=== PATIENT | male | born 1955 ===

== ENCOUNTER → 2020-02-06 11:35 | Outpatient (BNVA) | payer OTHER, SELFPAY | PROVIDERS: PCP Nurse Practitioner Family; Referring Provider Nurse Practitioner Family; Visit Provider Internal Medicine Endocrinology, Diabetes & Metabolism | DX: E11.9 Type 2 diabetes mellitus without complications (principal); E89.0 Postprocedural hypothyroidism; I10 Essential (primary) hypertension; E78.5 Hyperlipidemia, unspecified; E66.9 Obesity, unspecified; Z79.899 Other long term (current) drug therapy | CPT/HCPCS: 99214 ==

== ENCOUNTER 2020-02-13 14:07 | Outpatient (REF) | payer OTHER, SELFPAY ==
[2020-02-13 16:58] LABS: Estimated Average Glucose 123 mg/dL; Hemoglobin A1C 148.4256 umol/L; Hemoglobin A1c % 5.9 %
[2020-02-13 17:40] LABS: Prostate Specific Antigen Scr 0.38 ng/mL (<0.05-4.0); TSH reflex Free T4 2.08 mIU/mL (0.32-4.0)
[2020-02-13 17:48] LABS: Anion Gap 15 (12-20); Blood Urea Nitrogen 14 mg/dL (9-16); Calcium 9.1 mg/dL (8.4-10.2); Carbon Dioxide 28 mmol/L (22-29); Chloride 99 mmol/L (96-108); Cholesterol 201 mg/dL; Estimated Glomerular Filt Rate > 60; Glucose Fasting 133 mg/dL (60-99); HDL Cholesterol 87 mg/dL; LDL Cholesterol Calculated 97 mg/dl; Potassium 4.3 mmol/l (3.3-5.1); Sodium 138 mmol/L (135-145); Triglycerides 88 mg/dL
== END 2020-02-13 14:08 | disposition home or self-care (01) ==
LOC: HO.HMGCLDS 14:07
PROVIDERS: PCP Nurse Practitioner Family; Visit Provider Nurse Practitioner Family
DX: Z12.5 Encounter for screening for malignant neoplasm of prostate (principal); Z00.00 Encounter for general adult medical examination without abnormal findings; E11.9 Type 2 diabetes mellitus without complications
CPT/HCPCS: 80048; 80061; 83036; 84153; 84443

== ENCOUNTER 2020-08-20 14:11 | Outpatient (REF) | payer OTHER, SELFPAY ==
[2020-08-20 17:03] LABS: Alanine Aminotransferase 43 U/L (0-40); Albumin Level 4.8 g/dL (3.5-5.0); Alkaline Phosphatase 77 U/L (39-117); Anion Gap 16 (12-20); Aspartate Amino Transferase 40 U/L (5-37); Bilirubin Total 0.7 mg/dL (0.0-1.0); Blood Urea Nitrogen 15 mg/dL (9-16); Calcium 9.8 mg/dL (8.4-10.2); Carbon Dioxide 28 mmol/L (22-29); Chloride 98 mmol/L (96-108); Cholesterol 210 mg/dL; Estimated Glomerular Filt Rate > 60; Glucose Fasting 187 mg/dL (60-99); HDL Cholesterol 82 mg/dL; LDL Cholesterol Calculated 109 mg/dl; Potassium 5.2 mmol/L (3.3-5.1); Sodium 137 mmol/L (135-145); Total Protein 8.3 g/dL (6.5-8.0); Triglycerides 97 mg/dL
[2020-08-20 17:22] LABS: TSH reflex Free T4 4.96 uIU/mL (0.32-4.0)
== END 2020-08-20 14:12 | disposition home or self-care (01) ==
LOC: HO.HMGCLDS 14:11
PROVIDERS: PCP Nurse Practitioner Family; Visit Provider Nurse Practitioner Family
DX: R00.0 Tachycardia, unspecified (principal); I10 Essential (primary) hypertension
CPT/HCPCS: 36415; 80053; 80061; 84439; 84443

== ENCOUNTER 2020-08-24 13:04 | Outpatient (REF) | payer OTHER, SELFPAY ==
[2020-08-24 14:22] LABS: Anion Gap 15 (12-20); Carbon Dioxide 28 mmol/L (22-29); Chloride 98 mmol/L (96-108); Potassium 4.6 mmol/L (3.3-5.1); Sodium 136 mmol/L (135-145)
[2020-08-24 14:50] LABS: TSH reflex Free T4 4.56 uIU/mL (0.32-4.0)
[2020-08-24 15:22] LABS: Free T4 (Free Thyroxine) 0.96 ng/dL (0.71-1.85)
[2020-08-27 08:05] LABS: HBS Num1 1.05 mIU/mL (0-7.99); HBc Num1 0.05 S/CO (0.00-0.79); Hepatitis B Core Antibody Nonreactive (Nonreactive); Hepatitis B Surface Antigen Negative (Negative); ~Hepatitis B Surface Antibody NONREACTIVE (Nonreactive)
[2020-08-27 08:07] LABS: ~Hepatitis C Antibody Nonreactive (Nonreactive)
[2020-08-28 08:13] LABS: Hepatitis A Antibody IgM 0.13 Index (0-0.79); ~HepC Num1 0.08 S/CO (0.00-0.79); ~Hepatitis A Antibody IgM Nonreactive (Nonreactive)
== END 2020-08-24 13:05 | disposition home or self-care (01) ==
LOC: HO.HMGCLDS 13:04
PROVIDERS: PCP Nurse Practitioner Family; Visit Provider Nurse Practitioner Family
DX: I10 Essential (primary) hypertension (principal); R74.8 Abnormal levels of other serum enzymes; E87.5 Hyperkalemia
CPT/HCPCS: 36415; 80051; 84439; 84443; 86704; 86706; 86709; 86803; 87340

== ENCOUNTER 2020-08-30 10:00 | Outpatient (REF) | payer OTHER, SELFPAY ==
--- NOTE | ~2020-08-30 | US_ITS ---
EXAMINATION: US ABDOMEN COMPLETE CLINICAL INFORMATION: Elevated liver enzymes. COMPARISON: CTA chest 02/08/2019 TECHNIQUE: Real-time imaging of the abdominal viscera. Technically difficult study secondary to bowel gas, body habitus. FINDINGS: PANCREAS: Normal. ABDOMINAL AORTA: Not well visualized due to bowel gas. INFERIOR VENA CAVA: Visualized portions are normal. LIVER: Liver echotexture is increased and heterogeneous suggestive of hepatocellular disease. The liver contour is slightly irregular questionable for mild cirrhosis. There are several hypoechoic areas seen in the liver largest measuring 6 mm in the left lobe. There is no intrahepatic biliary duct dilatation. GALLBLADDER: Not well visualized. COMMON BILE DUCT: Normal in caliber measuring 0.20 cm in diameter. RIGHT KIDNEY: Normal. No hydronephrosis. No renal calculi or focal parenchymal lesions. The kidney measures 12.3 cm in maximum dimension. LEFT KIDNEY: Normal. No hydronephrosis. No renal calculi or focal parenchymal lesions. The kidney measures 13.6 cm in maximum dimension. SPLEEN: Normal. The spleen measures 10.8 cm in maximum dimension. FREE FLUID: None. US/US abdomen complete IMPRESSION: Limited exam. In particular, evaluation of the gallbladder and abdominal aorta is limited. Heterogeneous liver echotexture questionable for hepatocellular disease and mild cirrhotic changes. Numerous small hypoechoic lesions in the liver largest measuring 6 mm in the left lobe. Follow-up liver MRI should be considered.
== END 2020-08-30 10:01 | disposition home or self-care (01) ==
LOC: HO.HMGCX 10:00
PROVIDERS: PCP Nurse Practitioner Family; Visit Provider Nurse Practitioner Family
DX: R74.8 Abnormal levels of other serum enzymes (principal)
CPT/HCPCS: 76700

== ENCOUNTER 2020-09-06 13:42 | Outpatient (REF) | payer OTHER, SELFPAY | END 2020-09-06 13:43 | disposition home or self-care (01) | LOC: HO.MRI 13:42 | PROVIDERS: Visit Provider Nurse Practitioner Family | DX: K76.9 Liver disease, unspecified (principal) | CPT/HCPCS: A9585 ==

== ENCOUNTER → 2020-10-18 11:26 | Outpatient (BNVA) | payer MEDICAID, SELFPAY | PROVIDERS: PCP Nurse Practitioner Family; Referring Provider Nurse Practitioner Family; Visit Provider Surgery | DX: K81.0 Acute cholecystitis (principal); R74.01 Elevation of levels of liver transaminase levels | CPT/HCPCS: 99202 ==

== ENCOUNTER 2021-02-15 11:40 | Outpatient (REF) | payer OTHER, SELFPAY ==
[2021-02-15 14:21] LABS: Alanine Aminotransferase 35 U/L (0-40); Aspartate Amino Transferase 34 U/L (5-37); Cholesterol 173 mg/dL; HDL Cholesterol 62 mg/dL; LDL Cholesterol Calculated 96 mg/dl; Triglycerides 77 mg/dL
[2021-02-15 14:42] LABS: TSH reflex Free T4 2.21 uIU/mL (0.32-4.0)
[2021-02-16 09:46] LABS: LDL Cholesterol Direct 105 mg/dL (<100)
== END 2021-02-15 11:41 | disposition home or self-care (01) ==
LOC: HO.HMGCLDS 11:40
PROVIDERS: PCP Nurse Practitioner Family; Visit Provider Internal Medicine
DX: E78.5 Hyperlipidemia, unspecified (principal); K76.9 Liver disease, unspecified; R74.8 Abnormal levels of other serum enzymes; R79.89 Other specified abnormal findings of blood chemistry
CPT/HCPCS: 36415; 80061; 83721; 84443; 84450; 84460

== ENCOUNTER 2021-07-23 12:21 | Outpatient (REF) | payer MEDICARE, MEDICAID, SELFPAY ==
--- NOTE | ~2021-07-23 | XR_ITS ---
EXAMINATION: XR CHEST CLINICAL INFORMATION: These COMPARISON: None TECHNIQUE: 2 views of the chest were obtained. FINDINGS: The lungs are well-expanded and clear. The heart size and pulmonary vascularity is normal. There is moderate spondylosis dorsal spine. No lytic process. XR/XR chest 2V IMPRESSION: Unremarkable chest examination.
[2021-07-23 14:14] LABS: Alanine Aminotransferase 41 U/L (0-40); Albumin Level 4.6 g/dL (3.5-5.0); Alkaline Phosphatase 66 U/L (39-117); Anion Gap 14 (12-20); Aspartate Amino Transferase 45 U/L (5-37); Bilirubin Total 0.8 mg/dL (0.0-1.0); Blood Urea Nitrogen 12 mg/dL (9-16); Calcium 9.4 mg/dL (8.4-10.2); Carbon Dioxide 28 mmol/L (22-29); Chloride 96 mmol/L (96-108); Cholesterol 181 mg/dL; Estimated Glomerular Filt Rate > 60; Glucose Fasting 166 mg/dL (60-99); HDL Cholesterol 74 mg/dL; LDL Cholesterol Calculated 95 mg/dl; Sodium 133 mmol/L (135-145); Triglycerides 64 mg/dL
[2021-07-23 14:29] LABS: TSH reflex Free T4 1.96 uIU/mL (0.32-4.0)
== END 2021-07-23 12:22 | disposition home or self-care (01) ==
LOC: HO.HMGCX 12:21
PROVIDERS: Visit Provider Nurse Practitioner Family
DX: R06.2 Wheezing (principal); I10 Essential (primary) hypertension
CPT/HCPCS: 36415; 71046; 80053; 80061; 84443

== ENCOUNTER 2021-10-24 10:55 | Outpatient (REF) | payer MEDICARE, SELFPAY ==
--- NOTE | 2021-10-24 12:01 | PFT_ITS ---
FLOWS: FEV1 79% of predicted at 2.92 L. FVC 81% of predicted at 4.03 L. FEV1 to FVC ratio of 0.73. No bronchodilator response. LUNG VOLUMES: Total lung capacity 91% of predicted at 6.79 L. Residual volume 105% of predicted at 2.60 L. Slow vital capacity 84% of predicted at 4.19 L. Expiratory reserve volume 56% of predicted at 0.83 L. Diffusion capacity is mildly decreased. IMPRESSION: No obstructive or restrictive ventilatory defect. No bronchodilator response. Decreased expiratory reserve volume suggests extrathoracic restriction likely secondary to abdominal obesity. Decreased diffusion capacity suggests emphysema. Plolo Del Castillo MD AP/MODL / [id number]
== END 2021-10-24 10:56 | disposition home or self-care (01) ==
LOC: HO.RESP 10:55
PROVIDERS: Visit Provider Nurse Practitioner Family
DX: R06.2 Wheezing (principal)
CPT/HCPCS: 94060; 94727; 94729

== ENCOUNTER 2021-11-21 10:31 | Outpatient (REF) | payer MEDICARE, SELFPAY ==
[2021-11-21 11:23] LABS: Appearance Urine HAZY; Color Urine YELLOW; Glucose Urine UA NEG (NEG); Leukocyte Esterase Urine 1+ (NEG); Nitrite Urine NEG (NEG); UACC Culture Trigger YES; Urine Blood NEG (NEG); Urine Ketones NEG (NEG); Urine Protein NEG (NEG-TRACE)
[2021-11-21 11:35] LABS: RBC Urine 0-2 /HPF (0)
[2021-11-21 11:36] LABS: Bacteria Urine 1+ /LPF; WBC Clumps Urine NOTED
[2021-11-21 12:08] LABS: Creatinine Urine 110.62 mg/dL
[2021-11-21 13:42] LABS: MANUAL DIFF FLAG NO
[2021-11-21 13:48] LABS: Basophils Absolute Auto 0.1 X10*3/uL (0.0-0.2); Basophils Percent Auto 0.9 % (0-2); Eosinophils Absolute Auto 0.2 X10*3/uL (0.0-0.4); Eosinophils Percent Auto 3.9 % (0-4); Hematocrit 34.4 % (42.0-52.0); Imm Gran Abs Auto 0.06 X10*3/uL (0.00-0.03); Lymphocytes Absolute Auto 1.1 X10*3/uL (1.2-4.9); Lymphocytes Percent Auto 19.2 % (20-40); Mean Corpuscular Hemoglobin 26.4 pg (27.0-33.0); Mean Corpuscular Volume 82.5 fL (80.0-98.0); Mean Platelet Volume 9.5 fL (9.4-12.4); Monocytes Absolute Auto 0.5 X10*3/uL (0.1-1.2); Monocytes Percent Auto 8.8 % (2-11); Neutrophils Absolute Auto 3.9 x10*3/uL (2.0-8.3); Neutrophils Percent Auto 66.2 % (45-73); Platelet Count 313 X10*3/uL (160-400); Red Blood Count 4.17 X10*6/uL (4.60-5.80); Red Cell Distribution Width 15.9 % (11.0-16.0); White Blood Count 5.9 X10*3/uL (4.8-10.8)
[2021-11-21 14:02] LABS: Alanine Aminotransferase 38 U/L (0-40); Albumin Level 4.6 g/dL (3.5-5.0); Alkaline Phosphatase 76 U/L (39-117); Anion Gap 18 (12-20); Aspartate Amino Transferase 48 U/L (5-37); Bilirubin Total 0.6 mg/dL (0.0-1.0); Blood Urea Nitrogen 14 mg/dL (9-16); Calcium 9.4 mg/dL (8.4-10.2); Carbon Dioxide 26 mmol/L (22-29); Chloride 94 mmol/L (96-108); Cholesterol 170 mg/dL; Estimated Glomerular Filt Rate > 60; Glucose Fasting 175 mg/dL (60-99); HDL Cholesterol 64 mg/dL; LDL Cholesterol Calculated 88 mg/dl; Potassium 5.5 mmol/L (3.3-5.1); Sodium 132 mmol/L (135-145); Total Protein 8.1 g/dL (6.5-8.0); Triglycerides 90 mg/dL
[2021-11-21 14:42] LABS: Prostate Specific Antigen Scr 0.45 ng/mL (<0.05-4.0); TSH reflex Free T4 2.29 uIU/mL (0.32-4.0)
== END 2021-11-21 10:32 | disposition home or self-care (01) ==
LOC: HO.HMGCLDS 10:31
PROVIDERS: PCP Nurse Practitioner Family; Visit Provider Nurse Practitioner Family
DX: Z12.5 Encounter for screening for malignant neoplasm of prostate (principal); I10 Essential (primary) hypertension
CPT/HCPCS: 36415; 80053; 80061; 81001; 82043; 84153; 84443; 85025; 87086; 87088; 87186

== ENCOUNTER 2021-11-29 11:28 | Outpatient (REF) | payer MEDICARE, SELFPAY ==
[2021-11-29 14:00] LABS: Appearance Urine HAZY; Color Urine YELLOW; Glucose Urine UA NEG (NEG); Leukocyte Esterase Urine NEG (NEG); Nitrite Urine NEG (NEG); PH 6.5 (5.0-8.0); Specific Gravity - Urine <= 1.005 (1.005-1.025); Urine Blood NEG (NEG); Urine Ketones NEG (NEG); Urine Protein NEG (NEG-TRACE)
[2021-11-29 14:25] LABS: Anion Gap 17 (12-20); Carbon Dioxide 25 mmol/L (22-29); Chloride 93 mmol/L (96-108); Potassium 4.8 mmol/L (3.3-5.1); Sodium 130 mmol/L (135-145)
== END 2021-11-29 11:29 | disposition home or self-care (01) ==
LOC: HO.HMGCLDS 11:28
PROVIDERS: PCP Nurse Practitioner Family; Visit Provider Nurse Practitioner Family
DX: I10 Essential (primary) hypertension (principal); E87.5 Hyperkalemia
CPT/HCPCS: 36415; 80051; 81003

== ENCOUNTER 2021-12-16 11:10 | Outpatient (REF) | payer MEDICARE, SELFPAY ==
[2021-12-16 14:27] LABS: Anion Gap 17 (12-20); Carbon Dioxide 26 mmol/L (22-29); Chloride 96 mmol/L (96-108); Potassium 4.6 mmol/L (3.3-5.1); Sodium 134 mmol/L (135-145)
[2021-12-16 14:53] LABS: Osmolality, Serum 285 mosm/kg (281-305)
== END 2021-12-16 11:11 | disposition home or self-care (01) ==
LOC: HO.HMGCLDS 11:10
PROVIDERS: PCP Nurse Practitioner Family; Visit Provider Nurse Practitioner Family
DX: E87.1 Hypo-osmolality and hyponatremia (principal)
CPT/HCPCS: 36415; 80051; 83930

== ENCOUNTER 2021-12-17 11:29 | Outpatient (REF) | payer MEDICARE, SELFPAY ==
[2021-12-17 15:01] LABS: Osmolality Urine 335 mosm/kg (373-1093)
== END 2021-12-17 11:30 | disposition home or self-care (01) ==
LOC: HO.HMGCLDS 11:29
PROVIDERS: PCP Nurse Practitioner Family; Visit Provider Nurse Practitioner Family
DX: E87.1 Hypo-osmolality and hyponatremia (principal)
CPT/HCPCS: 83935

== ENCOUNTER 2021-12-25 12:53 | Outpatient (REF) | payer MEDICARE, SELFPAY ==
[2021-12-25 14:04] LABS: MANUAL DIFF FLAG NO
[2021-12-25 14:22] LABS: Basophils Percent Auto 0.7 % (0-2); Eosinophils Absolute Auto 0.1 X10*3/uL (0.0-0.4); Eosinophils Percent Auto 2.7 % (0-4); Hematocrit 31.6 % (42.0-52.0); Hemoglobin 10.2 g/dl (14.0-18.0); Imm Gran Abs Auto 0.01 X10*3/uL (0.00-0.03); Imm Gran Pct Auto 0.2 % (0.0-0.4); Immature Retic Fraction 26.3 % (2.3-13.4); Lymphocytes Absolute Auto 0.8 X10*3/uL (1.2-4.9); Lymphocytes Percent Auto 19.3 % (20-40); Mean Corpuscular HGB Conc 32.3 g/dl (31.0-36.0); Mean Corpuscular Hemoglobin 26.6 pg (27.0-33.0); Mean Corpuscular Volume 82.3 fL (80.0-98.0); Mean Platelet Volume 9.3 fL (9.4-12.4); Monocytes Absolute Auto 0.4 X10*3/uL (0.1-1.2); Monocytes Percent Auto 10.5 % (2-11); Neutrophils Absolute Auto 2.7 x10*3/uL (2.0-8.3); Neutrophils Percent Auto 66.6 % (45-73); Platelet Count 264 X10*3/uL (160-400); Red Blood Count 3.84 X10*6/uL (4.60-5.80); Retic HGB Equivalent 29.3 pg (30.0-35.0); Reticulocyte Percent 1.6 % (0.5-1.8); Reticulocytes Absolute 0.062 X10*6/uL (0.026-0.095); White Blood Count 4.1 X10*3/uL (4.8-10.8)
[2021-12-25 14:48] LABS: Anion Gap 18 (12-20); Carbon Dioxide 24 mmol/L (22-29); Chloride 97 mmol/L (96-108); Iron 33 mcg/dL (45-160); Percent Iron Saturation 7 % (15-50); Potassium 4.6 mmol/L (3.3-5.1); Sodium 134 mmol/L (135-145); Total Iron Binding Capacity 494 mcg/dL (228-428); Unsaturated Iron Binding 461 ug/dL
[2021-12-25 15:09] LABS: Ferritin 15 ng/mL (20-250)
[2021-12-25 15:20] LABS: Folate 7.9 ng/mL (> or = 4.0); Vitamin B12 627 pg/mL (200-900)
== END 2021-12-25 12:54 | disposition home or self-care (01) ==
LOC: HO.HMGCLDS 12:53
PROVIDERS: PCP Nurse Practitioner Family; Visit Provider Nurse Practitioner Family
DX: D64.9 Anemia, unspecified (principal); E87.1 Hypo-osmolality and hyponatremia
CPT/HCPCS: 36415; 80051; 82607; 82728; 82746; 83540; 85025; 85045

== ENCOUNTER → 2022-01-22 11:10 | Outpatient (BNV) | payer MEDICARE, MEDICAID, SELFPAY | PROVIDERS: PCP Nurse Practitioner Family; Visit Provider Internal Medicine | DX: D50.9 Iron deficiency anemia, unspecified (principal) | CPT/HCPCS: 99213; 99214; G2211 ==

== ENCOUNTER 2022-02-12 12:34 | Outpatient (REF) | payer MEDICARE, SELFPAY | END 2022-02-12 12:35 | disposition home or self-care (01) | LOC: HO.MDS 12:34 | PROVIDERS: PCP Nurse Practitioner Family; Visit Provider Internal Medicine | DX: D50.9 Iron deficiency anemia, unspecified (principal) | CPT/HCPCS: 96365; J1756 ==

== ENCOUNTER 2022-02-20 12:44 | Outpatient (REF) | payer MEDICARE, SELFPAY | END 2022-02-20 12:45 | disposition home or self-care (01) | LOC: HO.MDS 12:44 | PROVIDERS: PCP Nurse Practitioner Family; Visit Provider Internal Medicine | DX: D50.9 Iron deficiency anemia, unspecified (principal) | CPT/HCPCS: 96365; J1756 ==

== ENCOUNTER 2022-02-27 12:39 | Outpatient (REF) | payer MEDICARE, SELFPAY | END 2022-02-27 12:40 | disposition home or self-care (01) | LOC: HO.MDS 12:39 | PROVIDERS: Visit Provider Internal Medicine | DX: D50.9 Iron deficiency anemia, unspecified (principal) | CPT/HCPCS: 96365; J1756 ==

== ENCOUNTER 2022-06-03 11:35 | Outpatient (REF) | payer MEDICARE, SELFPAY ==
[2022-06-03 14:15] LABS: MANUAL DIFF FLAG NO
[2022-06-03 14:22] LABS: Basophils Percent Auto 0.5 % (0-2); Eosinophils Absolute Auto 0.2 X10*3/uL (0.0-0.4); Eosinophils Percent Auto 3.4 % (0-4); Hematocrit 38.4 % (42.0-52.0); Hemoglobin 12.8 g/dl (14.0-18.0); Imm Gran Abs Auto 0.02 X10*3/uL (0.00-0.03); Imm Gran Pct Auto 0.5 % (0.0-0.4); Lymphocytes Absolute Auto 0.8 X10*3/uL (1.2-4.9); Lymphocytes Percent Auto 19.3 % (20-40); Mean Corpuscular HGB Conc 33.3 g/dl (31.0-36.0); Mean Corpuscular Hemoglobin 32.1 pg (27.0-33.0); Mean Corpuscular Volume 96.2 fL (80.0-98.0); Monocytes Absolute Auto 0.5 X10*3/uL (0.1-1.2); Monocytes Percent Auto 11.7 % (2-11); Neutrophils Absolute Auto 2.8 x10*3/uL (2.0-8.3); Neutrophils Percent Auto 64.6 % (45-73); Platelet Count 196 X10*3/uL (160-400); Red Blood Count 3.99 X10*6/uL (4.60-5.80); Red Cell Distribution Width 13.8 % (11.0-16.0); White Blood Count 4.4 X10*3/uL (4.8-10.8)
[2022-06-03 14:46] LABS: Alanine Aminotransferase 38 U/L (0-40); Albumin Level 4.2 g/dL (3.5-5.0); Alkaline Phosphatase 72 U/L (39-117); Anion Gap 15 (12-20); Aspartate Amino Transferase 50 U/L (5-37); Bilirubin Total 0.8 mg/dL (0.0-1.0); Blood Urea Nitrogen 10 mg/dL (9-16); Carbon Dioxide 28 mmol/L (22-29); Chloride 99 mmol/L (96-108); Cholesterol 165 mg/dL; Estimated Glomerular Filt Rate > 60; Glucose Fasting 130 mg/dL (60-99); HDL Cholesterol 77 mg/dL; LDL Cholesterol Calculated 76 mg/dl; Potassium 4.1 mmol/L (3.3-5.1); Sodium 138 mmol/L (135-145); Total Protein 6.9 g/dL (6.5-8.0); Triglycerides 61 mg/dL
[2022-06-03 15:02] LABS: TSH reflex Free T4 0.01 uIU/mL (0.32-4.0)
[2022-06-03 15:56] LABS: Free T4 (Free Thyroxine) 1.39 ng/dL (0.71-1.85)
== END 2022-06-03 11:36 | disposition home or self-care (01) ==
LOC: HO.HMGCLDS 11:35
PROVIDERS: PCP Nurse Practitioner Family; Visit Provider Nurse Practitioner Family
DX: I10 Essential (primary) hypertension (principal)
CPT/HCPCS: 36415; 80053; 80061; 84439; 84443; 85025

== ENCOUNTER 2022-12-29 10:34 | Outpatient (REF) | payer MEDICARE, SELFPAY ==
[2022-12-29 13:05] LABS: MANUAL DIFF FLAG NO
[2022-12-29 13:14] LABS: Appearance Urine Clear; Color Urine Yellow; Glucose Urine UA Negative (Negative); Leukocyte Esterase Urine Negative (Negative); Nitrite Urine Negative (Negative); Specific Gravity - Urine 1.015 (1.005-1.025); Urine Blood Negative (Negative); Urine Ketones Negative (Negative); Urine Protein Negative (Neg-Trace)
[2022-12-29 13:38] LABS: Basophils Percent Auto 0.7 % (0-2); Eosinophils Absolute Auto 0.2 X10*3/uL (0.0-0.4); Eosinophils Percent Auto 3.5 % (0-4); Hematocrit 36.8 % (42.0-52.0); Hemoglobin 12.1 g/dl (14.0-18.0); Imm Gran Abs Auto 0.02 X10*3/uL (0.00-0.03); Imm Gran Pct Auto 0.4 % (0.0-0.4); Lymphocytes Absolute Auto 0.9 X10*3/uL (1.2-4.9); Lymphocytes Percent Auto 19.3 % (20-40); Mean Corpuscular HGB Conc 32.9 g/dl (31.0-36.0); Mean Corpuscular Hemoglobin 31.3 pg (27.0-33.0); Mean Corpuscular Volume 95.1 fL (80.0-98.0); Mean Platelet Volume 10.5 fL (9.4-12.4); Monocytes Absolute Auto 0.5 X10*3/uL (0.1-1.2); Monocytes Percent Auto 10.3 % (2-11); Neutrophils Percent Auto 65.8 % (45-73); Platelet Count 217 X10*3/uL (160-400); Red Blood Count 3.87 X10*6/uL (4.60-5.80); Red Cell Distribution Width 14.9 % (11.0-16.0); White Blood Count 4.6 X10*3/uL (4.8-10.8)
[2022-12-29 13:45] LABS: Alanine Aminotransferase 41 U/L (0-40); Albumin Level 4.2 g/dL (3.5-5.0); Alkaline Phosphatase 67 U/L (39-117); Anion Gap 12 (12-20); Aspartate Amino Transferase 60 U/L (5-37); Bilirubin Total 0.7 mg/dL (0.0-1.0); Blood Urea Nitrogen 13 mg/dL (9-16); Calcium 9.5 mg/dL (8.4-10.2); Carbon Dioxide 28 mmol/L (22-29); Chloride 101 mmol/L (96-108); Cholesterol 167 mg/dL (<200); Estimated Glomerular Filt Rate > 60; Glucose Fasting 121 mg/dL (60-99); HDL Cholesterol 91 mg/dL (>40); LDL Cholesterol Calculated 65 mg/dL (<100); Potassium 4.4 mmol/L (3.3-5.1); Sodium 137 mmol/L (135-145); Total Protein 7.5 g/dL (6.5-8.0); Triglycerides 57 mg/dL (<150)
[2022-12-29 13:47] LABS: Alanine Aminotransferase 42 U/L (0-40); Anion Gap 14 (12-20); Aspartate Amino Transferase 61 U/L (5-37); Blood Urea Nitrogen 13 mg/dL (9-16); Calcium 9.6 mg/dL (8.4-10.2); Carbon Dioxide 27 mmol/L (22-29); Chloride 101 mmol/L (96-108); Estimated Average Glucose 108 mg/dL; Estimated Glomerular Filt Rate > 60; Glucose Random 122 mg/dL (60-115); Hemoglobin A1c % 5.4 % (<6.0); Potassium 4.6 mmol/L (3.3-5.1); Sodium 137 mmol/L (135-145)
[2022-12-29 13:54] LABS: Prostate Specific Antigen Scr 0.24 ng/mL (<0.05-4.0)
[2022-12-29 13:56] LABS: Creatinine Urine 82.54 mg/dL; Microalbum/Creatinine Ratio Ur 12.1 ug/mg cr (<30)
[2022-12-29 14:42] LABS: Free T4 (Free Thyroxine) 1.19 ng/dL (0.71-1.85)
== END 2022-12-29 10:35 | disposition home or self-care (01) ==
LOC: HO.HMGCLDS 10:34
PROVIDERS: Absent Provider Internal Medicine Endocrinology, Diabetes & Metabolism; PCP Nurse Practitioner Family; Visit Provider Nurse Practitioner Family
DX: I10 Essential (primary) hypertension (principal); E11.42 Type 2 diabetes mellitus with diabetic polyneuropathy; E89.0 Postprocedural hypothyroidism; Z12.5 Encounter for screening for malignant neoplasm of prostate
CPT/HCPCS: 36415; 80048; 80053; 80061; 81003; 82043; 82570; 83036; 84153; 84439; 84443; 84450; 84460; 85025

== ENCOUNTER 2023-01-19 11:24 | Outpatient (REF) | payer MEDICARE, SELFPAY ==
[2023-01-19 14:25] LABS: TSH reflex Free T4 0.18 uIU/mL (0.32-4.0)
[2023-01-19 14:55] LABS: Free T4 (Free Thyroxine) 1.17 ng/dL (0.71-1.85)
== END 2023-01-19 11:25 | disposition home or self-care (01) ==
LOC: HO.HMGCLDS 11:24
PROVIDERS: PCP Nurse Practitioner Family; Visit Provider Nurse Practitioner Family
DX: R94.6 Abnormal results of thyroid function studies (principal)
CPT/HCPCS: 36415; 84439; 84443

== ENCOUNTER 2023-03-10 14:04 | Outpatient (REF) | payer MEDICARE, SELFPAY | END 2023-03-10 14:05 | disposition home or self-care (01) | LOC: HO.MDS 14:04 | PROVIDERS: Visit Provider Internal Medicine | DX: D50.8 Other iron deficiency anemias (principal) | CPT/HCPCS: 96365; J1756 ==

== ENCOUNTER 2023-03-17 13:10 | Outpatient (REF) | payer MEDICARE, SELFPAY | END 2023-03-17 13:11 | disposition home or self-care (01) | LOC: HO.MDS 13:10 | PROVIDERS: Visit Provider Internal Medicine | DX: D50.8 Other iron deficiency anemias (principal) | CPT/HCPCS: 96365; J1756 ==

== ENCOUNTER 2023-04-02 13:21 | Outpatient (REF) | payer MEDICARE, SELFPAY | END 2023-04-02 13:22 | disposition home or self-care (01) | LOC: HO.MDS 13:21 | PROVIDERS: Visit Provider Internal Medicine | DX: D50.8 Other iron deficiency anemias (principal) | CPT/HCPCS: 96365; J1756 ==

== ENCOUNTER 2023-04-21 11:03 | Outpatient (REF) | payer MEDICARE, SELFPAY ==
[2023-04-21 13:54] LABS: TSH reflex Free T4 1.09 uIU/mL (0.32-4.0)
== END 2023-04-21 11:04 | disposition home or self-care (01) ==
LOC: HO.HMGCLDS 11:03
PROVIDERS: PCP Nurse Practitioner Family; Visit Provider Nurse Practitioner Family
DX: R94.6 Abnormal results of thyroid function studies (principal)
CPT/HCPCS: 36415; 84443

== ENCOUNTER 2023-04-27 12:43 | Outpatient (AMB) | payer MEDICARE, SELFPAY ==
--- NOTE | 2023-04-27 12:55 | MHC.PC.OV ---
Vital Signs 04/27/23 13:01 Height 6 ft Weight 228 lb BMI 30.9 BP 120/80 Blood Pressure Location Rt brachial Position Sitting Pulse 64 Pulse Source Pulse Oximeter Pulse Oximetry (%) 98 Oxygen Delivery Method Room Air Intake Visit Reasons: PE Intake Note: Patient here for physical exam. Allergies Sulfa (Sulfonamide Antibiotics) [SULFA (SULFONAMIDE ANTIBIOTICS)] Allergy (Intermediate, Verified 04/27/23 13:02) WHOLE FACE SWELLED UP, hives, hives tizanidine Adverse Reaction (Unknown, Verified 04/27/23 13:02) dizziness Medication List - Last Reconciled 04/27/23 by GRABIEL Perdue-AMBER albuterol sulfate 90 mcg/actuation 1 inh inhalation QID PRN amlodipine 2.5 mg PO DAILY atenolol 100 mg PO DAILY atorvastatin 80 mg PO DAILY blood sugar diagnostic tid testing finasteride 5 mg PO DAILY gabapentin 300 mg PO TID 90 days ibuprofen 800 mg PO TID PRN lancets tid testing levothyroxine 112 mcg PO QAM 90 days losartan 100 mg PO DAILY 90 days metformin ER 500 mg PO BID 90 days montelukast 10 mg PO DAILY omeprazole 20 mg PO DAILY 90 days pioglitazone 30 mg PO DAILY venlafaxine ER 225 mg (3 x 75 mg) PO DAILY Tobacco use date assessed: 04/27/23 Fall risk assessment: 2 + Falls in past year Last assessed Fall Risk: 04/27/23 Dental Screening Dental Screen Date: 04/27/23 Did you have a dental visit in the last 12 months?: Yes Did you have a dental problem in the last 6 months where you did not have access to dental care?: No Was dental information given to patient?: Patient has dentist HPI PE HPI Details Pt is here for a PE. Will order labs. Colon screen is up to date. PSA is up to date. Denies dribbling with urination, weak stream, and frequent nocturia. Pt is a diabetic, sees endo. Pt follows up with hematology due to anemia. [facility] Medical History Cataract Nodular thyroid disease Cervical spine arthritis History of toxic multinodular goiter Obesity (BMI 30-39.9) Dyslipidemia Hypertension Post-surgical hypothyroidism Diabetes type 2, controlled Surgical History Hx of total thyroidectomy No pertinent past surgical history Family History Mother Lung cancer Father No problems noted. Brother Mental health disorder Sister Lung cancer Sister No problems noted. Son No problems noted. Social History Household Members: Family Housing: House Alcohol intake: current Patient Tobacco Use Status: Former Tobacco user Years Smoked: 34 years ago e-Cigarette/Vaping Use: Never Used Second Hand Smoke Exposure: No service: No Current occupational status: retired Cognitive needs: No Hearing needs: No Vision needs: Yes Questionnaire PHQ-9 Over the last 2 weeks, how often have you been bothered by any of the following problems? 1. Little interest or pleasure in doing things: not at all 2. Feeling down, depressed, or hopeless: several days 3. Trouble falling or staying asleep, or sleeping too much: not at all 4. Feeling tired or having little energy: more than half the days 5. Poor appetite or overeating: several days 6. Feeling bad about yourself - or that you are a failure or have let yourself or your family down: not at all 7. Trouble concentrating on things, such as reading the newspaper or watching television: not at all 8. Moving or speaking so slowly that other people could have noticed. Or the opposite - being so fidgety or restless that you have been moving around a lot more than usual: not at all 9. Thoughts that you would be better off or of hurting yourself in some way: not at all Total score: 4 Depression Screening Interpretation: Negative Depression Screening Done: Yes [id number] - PHQ-9 Billing: Yes Source: Developed by Drs. José Miguel Bucio, Marysol Echavarria, Elian Cardozo and colleagues, with an educational jaron from [employer]. Thrive Questionnaire Date Thrive assessed: 04/27/23 I am a: Patient What is your living situation today?: I have a steady place to live Within the past 12 months, did the food you bought not last and you didn't have the money to get more?: Never true Within the past 12 months, did you worry whether your food would run out before you got money to buy more?: Never true Do you have trouble paying for medicines?: No Do you have trouble getting transportation to medical appointments?: No Do you have trouble paying your heating and electricity bill?: No Do you have trouble taking care of your child, family member or friend?: No Do you have trouble with day-to-day activities such as bathing, preparing meals, shopping, managing finances, etc.?: No Are you currently unemployed and looking for a job?: No Are you interested in more education?: No AUDIT C Alcohol Use Questionnaire (AUDIT-C) 1. How often do you have a drink containing alcohol?: 4 or more times a week 2. How many drinks containing alcohol do you have on a typical day when you are drinking?: 1 or 2 3. How often do you have six or more drinks on one occasion?: Never Total Score: 4 Score Reviewed/Action Taken: No DANIELA-7 AMB Questionnaire DANIELA-7 Date DANIELA - 7 assessed: 04/27/23 Feeling nervous, anxious, or on edge: 0 = Not at all Not being able to stop or control worryin = Not at all Worrying too much about different things: 0 = Not at all Trouble relaxin = Not at all Being so restless that it is hard to sit still: 0 = Not at all Becoming easily annoyed or irritable: 0 = Not at all Feeling afraid as if something awful might happen: 0 = Not at all Total DANIELA-7 score (0-4 normal; 5-9 mild; 10-14 moderate; 15-21 severe): 0 Source: Developed by Drs. José Miguel Bucio, Marysol Echavarria, Elian Cardozo and colleagues, with an educational jaron from [employer]. DANIELA-7 Assessment Billing DANIELA-7 Assessment Tool: DANIELA-7 Assessment 22763 Review of Systems Const Denies chills and Denies fever(s) Eyes Denies blurry vision ENT Denies vertigo, Denies dizziness and Denies sore throat Card Denies chest pain at rest, Denies chest pain with activity, Denies diaphoresis, Denies dyspnea and Denies dyspnea on exertion Resp Denies cough, Denies dyspnea, Denies dyspnea on exertion and Denies wheezing GI Denies abdominal pain, Denies melena, Denies hematochezia, Denies constipation, Denies diarrhea and Denies loose stools Denies hematuria Musc Denies numbness and Denies tingling Skin/Breast Denies lesions Neuro Denies vertigo, Denies dizziness, Denies numbness and Denies tingling Psych Denies anxiety, Denies depression, Denies homicidal ideation, Denies suicidal ideation and Denies other (substance abuse) Aller/Immun Denies wheezing Physical exam (Primary Care) Vital Signs: Last Vital Signs Pulse 64 04/27/23 13:01 BP 120/80 04/27/23 13:01 Pulse Ox 98 04/27/23 13:01 Oxygen Delivery Method Room Air 04/27/23 13:01 BMI result Body Mass Index 30.9 Tobacco/Smoking Status: Tobacco use Status Tobacco use date assessed 04/27/23 04/27/23 13:08 Patient Tobacco Use Status Former Tobacco user 04/27/23 12:58 e-Cigarette/Vaping Use Never Used 04/27/23 12:58 Depression Screening Interpretation: Negative Thrive Assessment: Date of Thrive Assessment Date Thrive assessed 10/23/22 04/27/23 12:58 Const General: cooperative Nutritional Appearance: well nourished Orientation/consciousness: patient oriented x3 HENMT Head: Yes normal to inspection, Yes normocephalic and Yes atraumatic Ears: TM's normal bilaterally Eyes General: appearance normal, both eyes and all related structures Alignment and Position: alignment normal and position normal Neck Neck: Yes normal visual inspection and Yes no lymphadenopathy Thyroid: Thyroid normal Resp Other: lungs diminished though moving air Effort & Inspection: normal respiratory effort Cardio Rate: regular rate Rhythm: regular rhythm Heart sounds: S1 normal heart sound present, S2 normal heart sound present and no murmurs GI Palpation (GI): Soft to palpation and nontender Auscultation: normal bowel sounds Male General Exam: Yes normal external exam Penis: normal penis Scrotum: scrotum normal, testes descended bilaterally and no inguinal hernias Testes: no testicular mass Back/Spine/Pelvis Other: slight kyphosis noted Skin Rashes: no rashes Neuro General: patient oriented x3, moves all extremities, no focal motor deficits and deep tendon reflexes 2+ bilaterally Romberg Test: Negative Psych Appearance: grossly normal Mental Status: mental status grossly normal Speech and movement: Normal speech and movement present Affect: normal affect Attitude: cooperative Thought process: Normal thought process present Thought content: Normal thought content present Insight: Good insight present (Psych) Judgement: Good judgement present (Psych) Assessment and Plan Assessment & Plan (1) Physical exam: Code(s): Z00.00 - Encounter for general adult medical examination without abnormal findings Plan: Labs ordered (2) Screening PSA (prostate specific antigen): Code(s): Z12.5 - Encounter for screening for malignant neoplasm of prostate Plan: PSA ordered Plan The patient agreed to the use of a medical biller/coder for this encounter. Scribed for LINA Joy by Sarah Méndez medical biller/coder, on 04/27/2023 at 13:15 EST. Orders: Orders Comprehensive [place]. Panel Fast Today Z00.00 - Encounter for general adult medical examination without abnormal findings TSH reflex Free T4 Today Z00.00 - Encounter for general adult medical examination without abnormal findings UA CC w/rflx Micro + Cult Today Z00.00 - Encounter for general adult medical examination without abnormal findings Complete Blood Count Auto Diff Today Z00.00 - Encounter for general adult medical examination without abnormal findings Lipid Panel Today Z00.00 - Encounter for general adult medical examination without abnormal findings Prostate Specific Antigen Scr Today Z12.5 - Encounter for screening for malignant neoplasm of prostate Coding Level of Care Code Est Pt Prev Care >65y(54579) Diagnoses Physical exam Z00.00 Screening PSA (prostate specific antigen) Z12.5 Additional Codes DANIELA-7 Assessment Billing - DANIELA-7 Assessment Tool: DANIELA-7 Assessment [id number] ([id number])
[2023-04-27 13:01] VITALS: BP 120/80; PULSE 64; O2SAT 98; BMI 30.9
== END 2023-04-27 13:48 | disposition home or self-care (01) ==
PROVIDERS: PCP Nurse Practitioner Family; Visit Provider Nurse Practitioner Family
DX: Z00.00 Encounter for general adult medical examination without abnormal findings (principal); Z12.5 Encounter for screening for malignant neoplasm of prostate
CPT/HCPCS: 99397

== ENCOUNTER 2023-07-01 10:24 | Outpatient (REF) | payer MEDICARE, SELFPAY ==
[2023-07-01 13:18] LABS: MANUAL DIFF FLAG NO
[2023-07-01 13:33] LABS: Basophils Percent Auto 1.1 % (0-2); Eosinophils Absolute Auto 0.1 X10*3/uL (0.0-0.4); Eosinophils Percent Auto 3.2 % (0-4); Hematocrit 38.6 % (42.0-52.0); Hemoglobin 12.9 g/dl (14.0-18.0); Imm Gran Abs Auto 0.01 X10*3/uL (0.00-0.03); Imm Gran Pct Auto 0.3 % (0.0-0.4); Lymphocytes Absolute Auto 0.6 X10*3/uL (1.2-4.9); Lymphocytes Percent Auto 15.8 % (20-40); Mean Corpuscular HGB Conc 33.4 g/dl (31.0-36.0); Mean Corpuscular Hemoglobin 32.4 pg (27.0-33.0); Mean Platelet Volume 10.1 fL (9.4-12.4); Monocytes Absolute Auto 0.5 X10*3/uL (0.1-1.2); Monocytes Percent Auto 13.9 % (2-11); Neutrophils Absolute Auto 2.5 x10*3/uL (2.0-8.3); Neutrophils Percent Auto 65.7 % (45-73); Platelet Count 186 X10*3/uL (160-400); Red Blood Count 3.98 X10*6/uL (4.60-5.80); Red Cell Distribution Width 13.6 % (11.0-16.0); White Blood Count 3.7 X10*3/uL (4.8-10.8)
[2023-07-01 13:49] LABS: Alanine Aminotransferase 39 U/L (0-40); Albumin Level 4.2 g/dL (3.5-5.0); Alkaline Phosphatase 80 U/L (39-117); Anion Gap 15 (12-20); Aspartate Amino Transferase 55 U/L (5-37); Bilirubin Total 0.6 mg/dL (0.0-1.0); Blood Urea Nitrogen 9 mg/dL (9-16); Calcium 9.4 mg/dL (8.4-10.2); Carbon Dioxide 28 mmol/L (22-29); Chloride 99 mmol/L (96-108); Cholesterol 185 mg/dL (<200); Estimated Glomerular Filt Rate > 60; Glucose Fasting 146 mg/dL (60-99); Glucose Random 145 mg/dL (60-115); HDL Cholesterol 100 mg/dL (>40); LDL Cholesterol Calculated 73 mg/dL (<100); Potassium 3.9 mmol/L (3.3-5.1); Sodium 138 mmol/L (135-145); Total Protein 7.9 g/dL (6.5-8.0); Triglycerides 61 mg/dL (<150)
[2023-07-01 13:58] LABS: Appearance Urine Clear; Color Urine Yellow; Glucose Urine UA Negative (Negative); Leukocyte Esterase Urine Negative (Negative); Nitrite Urine Negative (Negative); Urine Blood Negative (Negative); Urine Ketones Negative (Negative); Urine Protein Negative (Neg-Trace)
[2023-07-01 14:05] LABS: Prostate Specific Antigen Scr 0.21 ng/mL (<0.05-4.0)
[2023-07-01 14:07] LABS: Creatinine Urine 62.28 mg/dL; Microalbum/Creatinine Ratio Ur 41.7 ug/mg cr (<30)
[2023-07-01 14:08] LABS: Thyroid Stimulating Hormone 2.43 uIU/mL (0.32-4.0)
[2023-07-01 14:32] LABS: Vitamin B12 450 pg/mL (200-900)
[2023-07-01 15:00] LABS: Estimated Average Glucose 126 mg/dL
== END 2023-07-01 10:25 | disposition home or self-care (01) ==
LOC: HO.HMGCLDS 10:24
PROVIDERS: PCP Nurse Practitioner Family; Referring Provider Internal Medicine Endocrinology, Diabetes & Metabolism; Visit Provider Nurse Practitioner Family
DX: Z00.00 Encounter for general adult medical examination without abnormal findings (principal); E11.42 Type 2 diabetes mellitus with diabetic polyneuropathy; E89.0 Postprocedural hypothyroidism; Z12.5 Encounter for screening for malignant neoplasm of prostate
CPT/HCPCS: 36415; 80048; 80053; 80061; 81003; 82043; 82570; 82607; 83036; 84153; 84443; 85025

== ENCOUNTER 2023-07-16 08:44 | Outpatient (REF) | payer MEDICARE, SELFPAY ==
--- NOTE | ~2023-07-16 | US_ITS ---
EXAMINATION: US ABDOMEN COMPLETE CLINICAL INFORMATION: Abnormal levels of other serum enzymes. COMPARISON: Ultrasound abdomen complete 08/30/2020. TECHNIQUE: Real-time imaging of the abdominal viscera. Limited visualization due to bowel gas and body habitus. FINDINGS: PANCREAS: Limited visualization of pancreatic tail and head. Imaged portion of pancreatic body is unremarkable. ABDOMINAL AORTA: Limited visualization. INFERIOR VENA CAVA: Visualized portions are normal. LIVER: Increased hepatic parenchymal heterogeneity and echogenicity could be associated with hepatocellular disease/hepatic steatosis and severely limits visualization. Correlation with liver function tests and clinical exam recommended to determine further management. Previously identified hypoechoic areas measuring up to 6 mm in the left hepatic lobe are less well characterized, possibly due to diffuse heterogeneity and severely limited visualization. GALLBLADDER: The gallbladder appears contracted, and cannot be adequately evaluated. Gallbladder wall thickening of 5 mm could be related to under distention versus gallbladder pathology. Per booster assembler, patient states following fasting protocol. COMMON BILE DUCT: Normal in caliber measuring 0.3 cm in diameter. RIGHT KIDNEY: No hydronephrosis. No renal calculi. Limited visualization. The kidney measures 11.8 cm in maximum dimension. LEFT KIDNEY: No hydronephrosis. No renal calculi. Limited visualization. The kidney measures 12.6 cm in maximum dimension. SPLEEN: Normal. The spleen measures 10.6 cm in maximum dimension. FREE FLUID: None. US/US abdomen complete IMPRESSION: 1. Increased hepatic parenchymal heterogeneity and echogenicity could be associated with hepatocellular disease/hepatic steatosis and severely limits visualization. Correlation with liver function tests and clinical exam recommended to determine further management. Previously identified hypoechoic areas measuring up to 6 mm in the left hepatic lobe are less well characterized, possibly due to diffuse heterogeneity and severely limited visualization. 2. The gallbladder appears contracted, and cannot be adequately evaluated. Gallbladder wall thickening of 5 mm could be related to under distention versus gallbladder pathology. Per booster assembler, patient states following fasting protocol.
== END 2023-07-16 08:45 | disposition home or self-care (01) ==
LOC: HO.HMGCX 08:44
PROVIDERS: PCP Nurse Practitioner Family; Visit Provider Nurse Practitioner Family
DX: R74.8 Abnormal levels of other serum enzymes (principal)
CPT/HCPCS: 76700

== ENCOUNTER 2023-10-26 12:53 | Outpatient (AMB) | payer MEDICARE, SELFPAY ==
--- NOTE | 2023-10-26 12:55 | MHC.PC.OV ---
Vital Signs 10/26/23 12:56 10/26/23 13:27 Height 6 ft Weight 234 lb 4 oz BMI 31.8 BP 160/92 H 146/84 H Blood Pressure Location Lt brachial Lt brachial Position Sitting Sitting Pulse 77 Pulse Source Pulse Oximeter Pulse Oximetry (%) 97 Oxygen Delivery Method Room Air Intake Visit Reasons: 6 Month follow up Allergies Sulfa (Sulfonamide Antibiotics) [SULFA (SULFONAMIDE ANTIBIOTICS)] Allergy (Intermediate, Verified 10/26/23 12:57) WHOLE FACE SWELLED UP, hives, hives tizanidine Adverse Reaction (Unknown, Verified 10/26/23 12:57) dizziness Tobacco use date assessed: 10/26/23 Fall risk assessment: 2 + Falls in past year Last assessed Fall Risk: 10/26/23 Dental Screening Dental Screen Date: 10/26/23 Did you have a dental visit in the last 12 months?: Yes Did you have a dental problem in the last 6 months where you did not have access to dental care?: No Was dental information given to patient?: Patient has dentist HPI 6 Month follow up HPI Details HTN: Blood pressure is managed with amlodipine 2.5mg, atenolol 100mg, and losartan 100mg. Pt checks his blood pressure intermittently at home and it is in the 120s/80s. Pt would rather not change any meds, pt will continue to monitor his BP at home and let me know if it sustains above 140/90. Denies chest pain, shortness of breath, headache, dizziness, and blurred vision. [facility] Medical History Cataract Nodular thyroid disease Cervical spine arthritis History of toxic multinodular goiter Obesity (BMI 30-39.9) Dyslipidemia Hypertension Post-surgical hypothyroidism Diabetes type 2, controlled Surgical History Hx of total thyroidectomy No pertinent past surgical history Family History Mother Lung cancer Father No problems noted. Brother Mental health disorder Sister Lung cancer Sister No problems noted. Son No problems noted. Social History Household Members: Family Housing: House Alcohol intake: current Patient Tobacco Use Status: Former Tobacco user Years Smoked: 34 years ago e-Cigarette/Vaping Use: Never Used Second Hand Smoke Exposure: No service: No Current occupational status: retired Cognitive needs: No Hearing needs: No Vision needs: Yes Questionnaire Thrive Questionnaire Date Thrive assessed: 04/27/23 AUDIT C Alcohol Use Questionnaire (AUDIT-C) 1. How often do you have a drink containing alcohol?: 4 or more times a week 2. How many drinks containing alcohol do you have on a typical day when you are drinking?: 1 or 2 3. How often do you have six or more drinks on one occasion?: Never Total Score: 4 Score Reviewed/Action Taken: Yes DANIELA-7 AMB Questionnaire DANIELA-7 Date DANIELA - 7 assessed: 04/27/23 Source: Developed by Drs. José Miguel Bucio, Marysol Echavarria, Elian Cardozo and colleagues, with an educational jaron from [employer]. Review of Systems Const Reports as per HPI Physical exam (Primary Care) Vital Signs: Last Vital Signs Pulse 77 10/26/23 12:56 BP 146/84 H 10/26/23 13:27 Pulse Ox 97 10/26/23 12:56 Oxygen Delivery Method Room Air 10/26/23 12:56 BMI result Body Mass Index 31.8 Tobacco/Smoking Status: Tobacco use Status Tobacco use date assessed 10/26/23 10/26/23 12:59 Patient Tobacco Use Status Former Tobacco user 10/26/23 12:59 e-Cigarette/Vaping Use Never Used 10/26/23 12:59 Thrive Assessment: Date of Thrive Assessment Date Thrive assessed 04/27/23 10/26/23 12:59 Const General: cooperative Orientation/consciousness: patient oriented x3 Resp Effort & Inspection: normal respiratory effort Auscultation: clear to auscultation bilaterally Cardio Rate: regular rate Rhythm: regular rhythm Heart sounds: S1 normal heart sound present and S2 normal heart sound present Neuro General: patient oriented x3 Extrem Right lower extremity: no edema Left lower extremity: no edema Psych Appearance: grossly normal Mental Status: mental status grossly normal Speech and movement: Normal speech and movement present Affect: normal affect Attitude: cooperative Thought process: Normal thought process present Thought content: Normal thought content present Insight: Good insight present (Psych) Judgement: Good judgement present (Psych) Assessment and Plan Assessment & Plan (1) Hypertension: Code(s): I10 - Essential (primary) hypertension Plan: Labs ordered, continue current meds Plan The patient agreed to the use of a medical assistant secretary for this encounter. Scribed for LINA Joy by Sarah Méndez medical assistant secretary, on 10/26/2023 at 13:15 EST. Orders: Orders Complete Blood Count Auto Diff Today I10 - Essential (primary) hypertension Comprehensive [place]. Panel Fast Today I10 - Essential (primary) hypertension TSH reflex Free T4 Today I10 - Essential (primary) hypertension UA CC w/rflx Micro + Cult Today I10 - Essential (primary) hypertension Lipid Panel Today I10 - Essential (primary) hypertension Medications: Refilled albuterol sulfate 90 mcg/actuation 1 inh inhalation QID PRN 6.7 grams 1RF shortness of breath or wheezing Coding Level of Care Code Est Pt Level 3 (56732) Diagnoses Hypertension I10
[2023-10-26 12:56] VITALS: BP 160/92; PULSE 77; O2SAT 97; BMI 31.8
[2023-10-26 13:27] VITALS: BP 146/84
== END 2023-10-26 13:34 | disposition home or self-care (01) ==
PROVIDERS: PCP Nurse Practitioner Family; Visit Provider Nurse Practitioner Family
DX: I10 Essential (primary) hypertension (principal)
CPT/HCPCS: 99213

== ENCOUNTER 2024-01-13 10:51 | Outpatient (REF) | payer MEDICARE, SELFPAY ==
[2024-01-13 13:37] LABS: MANUAL DIFF FLAG NO
[2024-01-13 13:41] LABS: Basophils Percent Auto 0.7 % (0-2); Eosinophils Absolute Auto 0.1 X10*3/uL (0.0-0.4); Eosinophils Percent Auto 2.8 % (0-4); Hematocrit 34.8 % (42.0-52.0); Hemoglobin 11.5 g/dl (14.0-18.0); Imm Gran Abs Auto 0.03 X10*3/uL (0.00-0.03); Imm Gran Pct Auto 0.7 % (0.0-0.4); Lymphocytes Percent Auto 23.2 % (20-40); Mean Corpuscular Hemoglobin 31.8 pg (27.0-33.0); Mean Corpuscular Volume 96.1 fL (80.0-98.0); Mean Platelet Volume 10.1 fL (9.4-12.4); Monocytes Absolute Auto 0.4 X10*3/uL (0.1-1.2); Neutrophils Absolute Auto 2.8 x10*3/uL (2.0-8.3); Neutrophils Percent Auto 64.6 % (45-73); Platelet Count 219 X10*3/uL (160-400); Red Blood Count 3.62 X10*6/uL (4.60-5.80); Red Cell Distribution Width 14.7 % (11.0-16.0); White Blood Count 4.4 X10*3/uL (4.8-10.8)
[2024-01-13 13:43] LABS: Appearance Urine Clear; Color Urine Yellow; Glucose Urine UA Negative (Negative); Leukocyte Esterase Urine Negative (Negative); Nitrite Urine Negative (Negative); PH 6.5 (5.0-9.0); Urine Blood Negative (Negative); Urine Ketones Negative (Negative); Urine Protein Negative (Neg-Trace)
[2024-01-13 14:18] LABS: Alanine Aminotransferase 32 U/L (0-40); Aspartate Amino Transferase 48 U/L (5-37)
[2024-01-13 14:21] LABS: Alanine Aminotransferase 32 U/L (0-40); Albumin Level 4.2 g/dL (3.5-5.0); Alkaline Phosphatase 63 U/L (39-117); Anion Gap 15 (12-20); Aspartate Amino Transferase 47 U/L (5-37); Bilirubin Total 0.5 mg/dL (0.0-1.0); Blood Urea Nitrogen 11 mg/dL (9-16); Calcium 9.7 mg/dL (8.4-10.2); Carbon Dioxide 28 mmol/L (22-29); Chloride 102 mmol/L (96-108); Cholesterol 175 mg/dL (<200); Estimated Glomerular Filt Rate > 60; Glucose Fasting 144 mg/dL (60-99); HDL Cholesterol 88 mg/dL (>40); LDL Cholesterol Calculated 77 mg/dL (<100); Potassium 4.7 mmol/L (3.3-5.1); Sodium 140 mmol/L (135-145); TSH reflex Free T4 1.53 uIU/mL (0.32-4.0); Total Protein 7.7 g/dL (6.5-8.0); Triglycerides 54 mg/dL (<150)
[2024-01-13 14:40] LABS: Creatinine Urine 56.82 mg/dL; Microalbum/Creatinine Ratio Ur 28.1 ug/mg cr (<30)
[2024-01-13 15:43] LABS: Estimated Average Glucose 123 mg/dL; Hemoglobin A1c % 5.9 % (<6.0)
[2024-01-14 05:40] LABS: Hepatitis A Antibody IgM 0.13 Index (0-0.79); ~Hepatitis A Antibody IgM Nonreactive (Nonreactive)
[2024-01-14 05:41] LABS: HBS Num1 0.32 mIU/mL (0-7.99); HBc Num1 0.14 S/CO (0.00-0.79); HBsAGNum1 0.31 S/CO (0.00-0.99); Hepatitis B Core Antibody Nonreactive (Nonreactive); Hepatitis B Surface Antigen Negative (Negative); ~HepC Num1 0.12 S/CO (0.00-0.79); ~Hepatitis B Surface Antibody NONREACTIVE (Nonreactive); ~Hepatitis C Antibody Nonreactive (Nonreactive)
== END 2024-01-13 10:52 | disposition home or self-care (01) ==
LOC: HO.HMGCLDS 10:51
PROVIDERS: PCP Nurse Practitioner Family; Referring Provider Internal Medicine Endocrinology, Diabetes & Metabolism; Visit Provider Nurse Practitioner Family
DX: E11.42 Type 2 diabetes mellitus with diabetic polyneuropathy (principal); E89.0 Postprocedural hypothyroidism; R74.8 Abnormal levels of other serum enzymes; I10 Essential (primary) hypertension
CPT/HCPCS: 36415; 80053; 80061; 81003; 82043; 82570; 83036; 84443; 84450; 84460; 85025; 86704; 86706; 86709; 86803; 87340

== ENCOUNTER 2024-01-18 10:46 | Outpatient (AMB) | payer MEDICARE, SELFPAY ==
[2024-01-18 10:50] VITALS: BP 150/76; PULSE 79; RESP 14; O2SAT 98; BMI 31.7
--- NOTE | 2024-01-18 10:50 | A.OFFVIS_ITS ---
Vital Signs 01/18/24 10:50 Height 6 ft Weight 234 lb BMI 31.7 BP 150/76 H Blood Pressure Location Lt brachial Position Sitting Respiration 14 Pulse 79 Pulse Source Pulse Oximeter Pulse Oximetry (%) 98 Oxygen Delivery Method Room Air Intake Visit Reasons: Ankylosing Hyperostosis Allergies Sulfa (Sulfonamide Antibiotics) [SULFA (SULFONAMIDE ANTIBIOTICS)] Allergy (Intermediate, Verified 01/18/24 10:52) WHOLE FACE SWELLED UP, hives, hives tizanidine Adverse Reaction (Unknown, Verified 01/18/24 10:52) dizziness Medication List - Last Reconciled 01/18/24 by Sophie Ordaz LPN albuterol sulfate 90 mcg/actuation 1 inh inhalation QID PRN amlodipine 2.5 mg PO DAILY atenolol 100 mg PO DAILY atorvastatin 80 mg PO DAILY blood sugar diagnostic tid testing finasteride 5 mg PO DAILY gabapentin 300 mg PO TID 90 days ibuprofen 800 mg PO TID PRN lancets tid testing levothyroxine 112 mcg PO QAM 90 days losartan 100 mg PO DAILY 90 days metformin ER 500 mg PO BID 90 days montelukast 10 mg PO DAILY omeprazole 20 mg PO DAILY 90 days pioglitazone 30 mg PO DAILY venlafaxine ER 225 mg (3 x 75 mg) PO DAILY HPI HPI Ankylosing Hyperostosis: Details: 68-year-old male who presents today to the office for evaluation of pain secondary to ankylosing hyperostosis. He was referred to us by his primary care provider for symptoms of pain in his neck and lower back. He reports chronic neck and low back pain that has been going on for many years. The pain is described as an aching, stabbing sensation in the lower back and the neck and shoulders. It is rated at 7/10 in intensity and is worse with movements. He continues to have a great deal of restriction with rotation as well as flexion and extension. He states that rotation is most bothersome. He has some difficulty driving car. His ROM has not changed. It is worse in the morning when he first wakes up. He endorses stiffness in the morning. He is unable to sleep normally, or do his daily activities. He has done physical therapy in the past. 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 He is status post para- thyroidectomy.?He denies any numbness or paresthesia. ? [facility] Medical History Cataract Nodular thyroid disease Cervical spine arthritis History of toxic multinodular goiter Obesity (BMI 30-39.9) Dyslipidemia Hypertension Post-surgical hypothyroidism Diabetes type 2, controlled Surgical History Hx of total thyroidectomy No pertinent past surgical history Family History Mother Lung cancer Father No problems noted. Brother Mental health disorder Sister Lung cancer Sister No problems noted. Son No problems noted. Social History Household Members: Family Housing: House Alcohol intake: current Patient Tobacco Use Status: Former Tobacco user Years Smoked: 34 years ago e-Cigarette/Vaping Use: Never Used Second Hand Smoke Exposure: No service: No Current occupational status: retired Cognitive needs: No Hearing needs: No Vision needs: Yes Review of Systems Const All systems reviewed & are unremarkable except as noted in HPI and below Physical Exam Vital Signs: Last Vital Signs Pulse 79 01/18/24 10:50 Resp 14 01/18/24 10:50 BP 150/76 H 01/18/24 10:50 Pulse Ox 98 01/18/24 10:50 Oxygen Delivery Method Room Air 01/18/24 10:50 BMI result Body Mass Index 31.7 General: Appears afebrile. Alert and oriented. Mood and affect appropriate. Follows and participates in conversation appropriately. Respiratory effort is unlabored. Able to transition from sit to stand unassisted. Ambulates with bilaterally normal heel strike and toe off. Lateral rotation is limited to 15 degrees. Lumbar and cervical extension and flexion is also limited to about 15 degrees with severe limitation of motion. There is pain with flexion of the cervical spine. Results Reviewed Results Reviewed: Prior chest x-ray and CT scan showed diffuse skeletal hyperostosis. Assessment & Plan Assessment & Plan (1) DISH (diffuse idiopathic skeletal hyperostosis): Code(s): M48.10 - Ankylosing hyperostosis [[place]], site unspecified Category: Medical (2) Cervical spine arthritis: Code(s): M47.812 - Spondylosis without myelopathy or radiculopathy, cervical region Category: Medical Plan 68-year-old male with diffuse skeletal hyperostosis with significantly limitation in his cervical spine range of motion as debilitating symptoms. He also complains of cervical extensor strain and difficulty holding his head up. He reports muscle fatigue after holding his head up to watch something for a few hours. Given the scenario, I expressed my reservation about potentially doing a denervation procedure on his cervical spine via radiofrequency lesioning that might further we can his cervical extensors. We discussed temporary peripheral nerve stimulation as a potential alternative that may be more beneficial and exclude the possible occurrence of a dropped head syndrome. Patient was in agreement with the plan. We will start with a left-sided C4 temporary nerve stimulator placement, followed by the right side two weeks later. Discussed the risks and benefits of the procedure with the patient in detail. All questions were answered. The patient is on board with the plan. Justification for interventional therapy: ? Patient with average pain > 6/10 ? Patient has exhausted conservative therapy ? Patient unable to tolerate physical therapy due to pain. . Patient has a good understanding of their pain condition and has appropriate mental and social support Scribed for Dr. Dias by Yaya Pinzon, medical case worker, on 01/18/2024. I, Dr. Dias, have personally reviewed and agree with the information entered by the scribe. Coding Level of Care Code New Pt Level 4 (32544) Diagnoses DISH (diffuse idiopathic skeletal hyperostosis) M48.10 Cervical spine arthritis M47.812
== END 2024-01-18 11:17 | disposition home or self-care (01) ==
LOC: HO.PMC 10:46
PROVIDERS: PCP Nurse Practitioner Family; Referring Provider Nurse Practitioner Family; Visit Provider Internal Medicine
DX: M48.10 Ankylosing hyperostosis [Forestier], site unspecified (principal); M47.812 Spondylosis without myelopathy or radiculopathy, cervical region
CPT/HCPCS: 99204

== ENCOUNTER → 2024-01-18 10:46 | Outpatient (BNVA) | payer MEDICARE, SELFPAY | PROVIDERS: PCP Nurse Practitioner Family; Referring Provider Nurse Practitioner Family; Visit Provider Internal Medicine | DX: M48.10 Ankylosing hyperostosis [Forestier], site unspecified (principal); M47.812 Spondylosis without myelopathy or radiculopathy, cervical region | CPT/HCPCS: 99202 ==

== ENCOUNTER 2024-04-19 10:30 | Outpatient (REF) | payer MEDICARE, SELFPAY ==
--- NOTE | ~2024-04-19 | XR_ITS ---
Examination: Bilateral AP knee standing and chest x-ray. CLINICAL INDICATION: Cough and right knee pain. COMPARISON: Chest 07/23/2021. TECHNIQUE: One view AP knee standing. 2 views chest. FINDINGS: BILATERAL AP KNEE STANDING: There is mild reduction in medial and lateral compartment right knee without bony erosive changes, fracture or dislocation. The soft tissues are normal. There is minimal reduction in the medial and lateral compartment left knee joint. No bony erosive changes, fracture or dislocation. CHEST: Both lungs are fairly well-expanded and clear acute process. The heart size and pulmonary vascularity is normal. There is moderate spondylosis dorsal spine. No lytic or sclerotic process seen. XR/XR knee standing BI IMPRESSION: Mild degenerative changes medial and lateral compartment both knees slightly greater on the right. Unremarkable chest exam. Electronically signed by: Kev Recio MD 04/25/2024 11:59 AM EST
== END 2024-04-19 10:31 | disposition home or self-care (01) ==
LOC: HO.HMGCX 10:30
PROVIDERS: PCP Nurse Practitioner Family; Visit Provider Internal Medicine
DX: M25.561 Pain in right knee (principal); M25.562 Pain in left knee
CPT/HCPCS: 73565; 96127; 99212

== ENCOUNTER 2024-04-19 10:30 | Outpatient (AMB) | payer MEDICARE, SELFPAY ==
--- NOTE | 2024-04-19 10:31 | MHC.PC.OV ---
Vital Signs 04/19/24 10:32 Height 6 ft Weight 236 lb BMI 32.0 BP 136/82 Blood Pressure Location Lt brachial Position Sitting Pulse 78 Pulse Source Pulse Oximeter Pulse Oximetry (%) 97 Oxygen Delivery Method Room Air Intake Visit Reasons: knee pain, req referral Intake Note: Pt is here today for a sick visit. Pt c/o bilateral knee pain R knee is worst. Pt states that he is switching from [place] to Dr. Nelson. Allergies Sulfa (Sulfonamide Antibiotics) [SULFA (SULFONAMIDE ANTIBIOTICS)] Allergy (Intermediate, Verified 04/19/24 10:33) WHOLE FACE SWELLED UP, hives, hives tizanidine Adverse Reaction (Unknown, Verified 04/19/24 10:33) dizziness Medication List - Last Reconciled 04/19/24 by Ilsa Nelson MD albuterol sulfate 90 mcg/actuation 1 inh inhalation QID PRN amlodipine 2.5 mg PO DAILY atenolol 100 mg PO DAILY atorvastatin 80 mg PO DAILY blood sugar diagnostic tid testing finasteride 5 mg PO DAILY gabapentin 300 mg PO TID 90 days ibuprofen 800 mg PO TID PRN lancets tid testing levothyroxine 112 mcg PO QAM 90 days losartan 100 mg PO DAILY 90 days metformin ER 500 mg PO BID 90 days montelukast 10 mg PO DAILY omeprazole 20 mg PO DAILY 90 days pioglitazone 30 mg PO DAILY venlafaxine ER 225 mg (3 x 75 mg) PO DAILY Tobacco use date assessed: 04/19/24 Fall risk assessment: 2 + Falls in past year Last assessed Fall Risk: 04/19/24 Dental Screening Dental Screen Date: 10/26/23 HPI knee pain, req referral HPI Details Pt c/o bilateral knee pain worse when walking getting worse over 1 year. Patient denies any knee injury joint swelling or pain at rest. He has difficulty exercising due to his emphysema. [facility] Medical History Cataract Nodular thyroid disease Cervical spine arthritis History of toxic multinodular goiter Obesity (BMI 30-39.9) Dyslipidemia Hypertension Post-surgical hypothyroidism Diabetes type 2, controlled Surgical History Hx of total thyroidectomy No pertinent past surgical history Family History Mother Lung cancer Father No problems noted. Brother Mental health disorder Sister Lung cancer Sister No problems noted. Son No problems noted. Social History Household Members: Family Housing: House Alcohol intake: current Patient Tobacco Use Status: Former Tobacco user Years Smoked: 34 years ago e-Cigarette/Vaping Use: Never Used Second Hand Smoke Exposure: No service: No Current occupational status: retired Cognitive needs: No Hearing needs: No Vision needs: Yes Questionnaire PHQ-9 Over the last 2 weeks, how often have you been bothered by any of the following problems? 1. Little interest or pleasure in doing things: more than half the days 2. Feeling down, depressed, or hopeless: more than half the days 3. Trouble falling or staying asleep, or sleeping too much: not at all 4. Feeling tired or having little energy: more than half the days 5. Poor appetite or overeating: more than half the days 6. Feeling bad about yourself - or that you are a failure or have let yourself or your family down: not at all 7. Trouble concentrating on things, such as reading the newspaper or watching television: not at all 8. Moving or speaking so slowly that other people could have noticed. Or the opposite - being so fidgety or restless that you have been moving around a lot more than usual: not at all 9. Thoughts that you would be better off or of hurting yourself in some way: not at all Total score: 8 Depression Screening Interpretation: Negative Depression Screening Done: Yes Source: Developed by Drs. José Miguel Bucio, Marysol Echavarria, Elian Cardozo and colleagues, with an educational jaron from [employer]. Thrive Questionnaire Date Thrive assessed: 04/14/24 I am a: Patient What is your living situation today?: I have a steady place to live Within the past 12 months, did the food you bought not last and you didn't have the money to get more?: Never true Within the past 12 months, did you worry whether your food would run out before you got money to buy more?: Never true Do you have trouble paying for medicines?: No Do you have trouble getting transportation to medical appointments?: No Do you have trouble paying your heating and electricity bill?: No Do you have trouble taking care of your child, family member or friend?: No Do you have trouble with day-to-day activities such as bathing, preparing meals, shopping, managing finances, etc.?: No Are you currently unemployed and looking for a job?: No Are you interested in more education?: No Please select the resources that you would like help with: None Currently or been in a relationship where the following occur: No concerns reported THRIVE Score: 0 AUDIT C Alcohol Use Questionnaire (AUDIT-C) 1. How often do you have a drink containing alcohol?: 4 or more times a week 2. How many drinks containing alcohol do you have on a typical day when you are drinking?: 3 or 4 3. How often do you have six or more drinks on one occasion?: Less than monthly Total Score: 6 DANIELA-7 AMB Questionnaire DANIELA-7 Date DANIELA - 7 assessed: 04/27/23 Feeling nervous, anxious, or on edge: 0 = Not at all Not being able to stop or control worryin = Not at all Worrying too much about different things: 0 = Not at all Trouble relaxin = Not at all Being so restless that it is hard to sit still: 0 = Not at all Becoming easily annoyed or irritable: 0 = Not at all Feeling afraid as if something awful might happen: 0 = Not at all Total DANIELA-7 score (0-4 normal; 5-9 mild; 10-14 moderate; 15-21 severe): 0 Source: Developed by Drs. José Miguel Bucio, Marysol Echavarria, Elian Cardozo and colleagues, with an educational jaron from [employer]. Review of Systems Const All systems reviewed & are unremarkable except as noted in HPI and below Card Reports no additional complaints Resp Reports no additional complaints GI Reports no additional complaints Physical exam (Primary Care) Vital Signs: Last Vital Signs Pulse 78 04/19/24 10:32 BP 136/82 04/19/24 10:32 Pulse Ox 97 04/19/24 10:32 Oxygen Delivery Method Room Air 04/19/24 10:32 BMI result Body Mass Index 32.0 Tobacco/Smoking Status: Tobacco use Status Tobacco use date assessed 04/19/24 04/19/24 10:46 Patient Tobacco Use Status Former Tobacco user 04/19/24 10:33 e-Cigarette/Vaping Use Never Used 04/19/24 10:33 PHQ-9: PHQ-9 Score PHQ-9: Total score 8 04/19/24 11:10 Depression Screening Interpretation: Negative Thrive Assessment: Date of Thrive Assessment Date Thrive assessed 04/14/24 04/19/24 10:33 Currently or been in a relationship where the following occur: No concerns reported Const General: no acute distress Resp Effort & Inspection: normal respiratory effort Auscultation: wheezes and diminished lung sounds Cardio Rhythm: regular rhythm Heart sounds: S1 normal heart sound present and S2 normal heart sound present Extrem Other: There is decreased range of motion and crepitus of both knees ,no soft tissue swelling erythema or warmth Coding Level of Care Code Est Pt Level 3 (94090) Diagnoses Knee pain, bilateral M25.561; M25.562 Assessment & Plan Assessment & Plan (1) Knee pain, bilateral: Code(s): M25.561 - Pain in right knee; M25.562 - Pain in left knee Category: Medical Plan: For bilateral knee pain obtain x-rays and referred to physical therapy if the pain persist patient is interested in seeing orthopedic surgeon Orders: Orders XR knee standing BI Today M25.561 - Pain in right knee, M25.562 - Pain in left knee PT Evaluation and Treatment Today M25.561 - Pain in right knee, M25.562 - Pain in left knee
[2024-04-19 10:32] VITALS: BP 136/82; PULSE 78; O2SAT 97; BMI 32.0
== END 2024-04-19 15:28 | disposition home or self-care (01) ==
PROVIDERS: PCP Nurse Practitioner Family; Visit Provider Internal Medicine
DX: M25.561 Pain in right knee (principal); M25.562 Pain in left knee

== ENCOUNTER → 2024-04-19 11:24 | Outpatient (BNV) | payer MEDICARE, SELFPAY | PROVIDERS: PCP Nurse Practitioner Family; Visit Provider Radiology Diagnostic Radiology | DX: M25.561 Pain in right knee (principal); M25.562 Pain in left knee | CPT/HCPCS: 73565 ==

== ENCOUNTER 2024-04-23 11:41 | Outpatient (AMB) | payer MEDICARE, SELFPAY ==
[2024-04-23 15:13] VITALS: BP 142/90; PULSE 88; TEMP 36.9; O2SAT 95
--- NOTE | 2024-04-23 15:13 | AM.OFFWIN_ITS ---
Intake Vital Signs 04/23/24 15:13 Weight 232 lb BP 142/90 H Blood Pressure Location Rt brachial Position Sitting Pulse 88 Pulse Source Pulse Oximeter Temp 98.4 F Temp Source Oral Pulse Oximetry (%) 95 Oxygen Delivery Method Room Air Intake Visit Reasons: EP cough, congested, aches & pain Intake Note: Patient here for cough, chest congestion and body aches since . Patient Tobacco Use Status: Former Tobacco user Allergies Sulfa (Sulfonamide Antibiotics) [SULFA (SULFONAMIDE ANTIBIOTICS)] Allergy (Intermediate, Verified 04/23/24 15:14) WHOLE FACE SWELLED UP, hives, hives tizanidine Adverse Reaction (Unknown, Verified 04/23/24 15:14) dizziness Do you need a note to return to daycare/school/sports/work: No HPI EP cough, congested, aches & pain HPI Details Patient is a 68-year-old male with history of COPD emphysema comes to the walk-in clinic with cough, chest congestion and body aches, and mildly short of breath with exertion. He says that he has been having upper respiratory symptoms for the last month, having caught an apparent infection at a family gathering for [place]. It had initially started to improve, but then started to change and became located in the chest. No documented fever, nausea vomiting or diarrhea, weakness or dizziness, headache or sore throat, chest pain or difficulty breathing currently or at rest, or other significant associated symptoms. Negative for COVID. [facility] Medical History Cataract Nodular thyroid disease Cervical spine arthritis History of toxic multinodular goiter Obesity (BMI 30-39.9) Dyslipidemia Hypertension Post-surgical hypothyroidism Diabetes type 2, controlled Surgical History Hx of total thyroidectomy No pertinent past surgical history Family History Mother Lung cancer Father No problems noted. Brother Mental health disorder Sister Lung cancer Sister No problems noted. Son No problems noted. Social History Household Members: Family Housing: House Alcohol intake: current Patient Tobacco Use Status: Former Tobacco user Years Smoked: 34 years ago e-Cigarette/Vaping Use: Never Used Second Hand Smoke Exposure: No service: No Current occupational status: retired Cognitive needs: No Hearing needs: No Vision needs: Yes Review of Systems Const All systems reviewed & are unremarkable except as noted in HPI and below Physical Exam Vital Signs: Last Vital Signs Temp 98.4 F 04/23/24 15:13 Pulse 88 04/23/24 15:13 BP 142/90 H 04/23/24 15:13 Pulse Ox 95 04/23/24 15:13 Oxygen Delivery Method Room Air 04/23/24 15:13 Const General: cooperative, healthy appearing, comfortable, no acute distress, alert, awake, Physically active and well groomed; No anxious, diaphoretic, ill appearing, intoxicated appearing, poor hygiene or tired appearing Nutritional Appearance: average body habitus Orientation/consciousness: patient oriented x3 Limitations: no limitations HEENT Head: Yes normal to inspection, Yes normocephalic and Yes atraumatic Ears: hearing grossly normal bilaterally, external ears normal, TM's normal bi laterally and EAC's normal General nose exam: Normal external nose present, Normal nares present, No nasal polyps present, Normal nasal mucous membranes and turbinates present, Normal septum present and No nasal discharge present Face and sinus: Yes normal facial exam, Yes sinuses nontender and Yes face symmetric Mouth: Normal oral and palatal mucosa present, lip normal and tongue normal Throat: Yes posterior oropharynx normal, No peritonsillar mass, No postnasal drainage, No uvular edema and No cobblestoning Eyes General: appearance normal, both eyes and all related structures Neck Neck: Yes normal visual inspection, Yes no lymphadenopathy, Yes trachea midline, Yes supple and No anterior neck swelling Chest Chest palpation & inspection: normal palpation of entire chest wall Resp Effort & Inspection: normal respiratory effort, able to speak in complete sentences, normal respiratory pattern, no audible wheezes, Actively coughing (Occasional), respiratory effort not decreased, no grunting, not labored, no nasal flaring, no respiratory distress, no retractions, no tripod positioning, no use of accessory muscles, prolonged expiratory phase (Slightly) and symmetric chest movement Auscultation: not clear to auscultation bilaterally, no crackles, no rales, no rhonchi, wheezes (Scattered intermittent), lung sounds not diminished and No rub present Cardio Palpation: normal PMI Rate: regular rate Rhythm: regular rhythm Heart sounds: S1 normal heart sound present and S2 normal heart sound present Skin Other: Good color, warm and dry Neuro General: patient oriented x3 Psych Appearance: grossly normal Mental Status: mental status grossly normal Speech and movement: Normal speech and movement present Affect: normal affect Attitude: cooperative Thought process: Normal thought process present Insight: Good insight present (Psych) Judgement: Good judgement present (Psych) Results Reviewed Results Reviewed: Laboratory Last Values Influenza Type A (PCR) POSITIVE (Negative) A 04/23/24 11:41 Influenza Type B (PCR) NEGATIVE (Negative) 04/23/24 11:41 RSV RNA Qual (PCR) NEGATIVE (Negative) 04/23/24 11:41 SARS-CoV-2 RNA (RT-PCR) NEGATIVE (Negative) 04/23/24 11:41 Assessment & Plan Assessment & Plan (1) COPD exacerbation: Code(s): J44.1 - Chronic obstructive pulmonary disease with (acute) exacerbation Plan Patient is a 68-year-old male comes to the walk-in clinic after 2 weeks of upper respiratory infection symptoms, that are now starting to aggravate his emphysema COPD. I advised a chest x-ray, which could not be performed today as the hvac residential service technician had already gone home, however he will come back on Thursday or go to the hospital tomorrow if symptoms are not improving by then, or are worsening. I wrote him for a course of steroids, as he has diffuse wheezing, and is dyspnea on exertion for the last few days, as well as an antibiotic to cover for COPD flare. He can also trial Tessalon Perles for the cough. He will continue Mu cinex and adequate water intake for the mucus production, as well as his routine COPD medication. He will follow up if symptoms persist or worsen. He knows to go to the emergency department with worrisome symptoms. Orders: Orders XR chest 2V 04/25/24 Gia Carrillo PA-C R05.9 - Cough, unspecified Medications: New azithromycin take 500 mg today (day 1), then 250 mg for 4 days (days 2-5) PO 6 tabs 0RF KATHLEEN Dickinson prednisone then take 2 and half tabs daily for 3 days, then take 2 tabs daily for 3 days, then take 1 and half tabs daily for 3 days, and then take 1 tab daily for 3 days 60 mg (3 x 20 mg) PO DAILY 30 tabs 0RF 3 days KATHLEEN Dickinson benzonatate 200 mg PO BID-TID PRN 20 caps 0RF cough KATHLEEN Dickinson Coding Level of Care Code Est Pt Level 4 (06481) Diagnoses COPD exacerbation J44.1
[2024-04-25 14:26] LABS: Influenza A PCR POSITIVE (Negative); Influenza B PCR NEGATIVE (Negative); Resp Syncy Virus RNA Qual PCR NEGATIVE (Negative); SARS COV2 PCR INHOUSE NEGATIVE (Negative)
== END 2024-04-23 15:42 | disposition home or self-care (01) ==
PROVIDERS: PCP Nurse Practitioner Family; Visit Provider Physician Assistant Medical
DX: J44.1 Chronic obstructive pulmonary disease with (acute) exacerbation (principal)

== ENCOUNTER → 2024-04-23 11:41 | Outpatient (BNVA) | payer MEDICARE, SELFPAY | PROVIDERS: PCP Nurse Practitioner Family | DX: R05.9 Cough, unspecified (principal); J44.1 Chronic obstructive pulmonary disease with (acute) exacerbation | CPT/HCPCS: 99212 ==

== ENCOUNTER 2024-04-25 11:40 | Outpatient (REF) | payer MEDICARE, SELFPAY ==
--- NOTE | ~2024-04-25 | XR_ITS ---
Examination: Bilateral AP knee standing and chest x-ray. CLINICAL INDICATION: Cough and right knee pain. COMPARISON: Chest 07/23/2021. TECHNIQUE: One view AP knee standing. 2 views chest. FINDINGS: BILATERAL AP KNEE STANDING: There is mild reduction in medial and lateral compartment right knee without bony erosive changes, fracture or dislocation. The soft tissues are normal. There is minimal reduction in the medial and lateral compartment left knee joint. No bony erosive changes, fracture or dislocation. CHEST: Both lungs are fairly well-expanded and clear acute process. The heart size and pulmonary vascularity is normal. There is moderate spondylosis dorsal spine. No lytic or sclerotic process seen. XR/XR chest 2V IMPRESSION: Mild degenerative changes medial and lateral compartment both knees slightly greater on the right. Unremarkable chest exam. Electronically signed by: Kev Recio MD 04/25/2024 11:59 AM EST
== END 2024-04-25 11:41 | disposition home or self-care (01) ==
LOC: HO.HMGCX 11:40
PROVIDERS: PCP Nurse Practitioner Family; Visit Provider Physician Assistant
DX: R05.9 Cough, unspecified (principal)
CPT/HCPCS: 71046

== ENCOUNTER → 2024-04-25 11:43 | Outpatient (BNV) | payer MEDICARE, SELFPAY | PROVIDERS: PCP Nurse Practitioner Family; Visit Provider Radiology Diagnostic Radiology | DX: R05.9 Cough, unspecified (principal) | CPT/HCPCS: 71046 ==

== ENCOUNTER 2024-04-25 13:08 | Outpatient (REF) | payer MEDICARE, SELFPAY | END 2024-04-25 13:09 | disposition home or self-care (01) | LOC: HO.LNP 13:08 | PROVIDERS: Visit Provider Physician Assistant Medical | DX: Z13.89 Encounter for screening for other disorder (principal) ==

== ENCOUNTER 2024-05-13 11:30 | Outpatient (RCR) | payer MEDICARE, SELFPAY ==
[2024-04-22 12:34] VITALS: BP 169/87; PULSE 74; RESP 14; TEMP 36.2; O2SAT 98
[2024-04-22] MEDS: Iron Sucrose Complex 200 MG/10 ML VIAL IVPUSH (12:39)
[2024-04-29 13:01] VITALS: BP 164/89; PULSE 69; RESP 18; TEMP 36.6
[2024-04-29] MEDS: Iron Sucrose Complex 200 MG/10 ML VIAL IVPUSH (13:12)
[2024-05-06 12:10] VITALS: BP 148/77; PULSE 63; RESP 18; TEMP 36.2; O2SAT 100
[2024-05-06] MEDS: Iron Sucrose Complex 200 MG/10 ML VIAL IVPUSH (12:16)
[2024-05-13 11:37] VITALS: BP 170/81; PULSE 69; RESP 16; TEMP 36.2; O2SAT 100
[2024-05-13] MEDS: Iron Sucrose Complex 200 MG/10 ML VIAL IVPUSH (11:51)
[2024-05-13 12:05] VITALS: BP 164/85
== END 2024-05-13 12:30 | disposition home or self-care (01) ==
LOC: HO.INF 11:30
PROVIDERS: Visit Provider Internal Medicine
DX: D64.9 Anemia, unspecified (principal)
CPT/HCPCS: 96374; J1756

== ENCOUNTER 2024-06-10 11:13 | Outpatient (REF) | payer MEDICARE, SELFPAY ==
--- OUTSIDE RECORDS SUMMARY | 2024-06-10 13:07 | XMS_ITS | Clinical Summary ---
Author Organization [facility] Address [phone] [address] [place] [address] Care Team Providers Care First Sampler Name Role Phone Ryland Lovell NP Primary Care Provider + Jill Renteria MD Unavailable [phone] Allergies Active Allergy Reactions Criticality Noted [...] to hematology. 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 Family [...] Description 07/05/2024 11:00 AM EDT Office Visit [facility] Endocrinology [address] [phone] Teresa Don MD [address] [place] [phone] [email or web address] Maintenance Due Date Last Done Comments [...] LAB BLOOD CIARA FRAZIER Performing Organization Address City/State/[facility] Co de Phone Number [address] [address] * Hemoglobin A1c (08/21/2022 12:48 PM EDT) HEMOGLOBIN A1C 5.5 4.3 - 5.8 % [facility] Blood 08/21/2022 12:4 8 PM EDT 08/21/2022 12:50 PM EDT Teresa Don MD LAB BLOOD CIARA FRAZIER [facility] [address] [place] [address] from Last 3 Months or Most Recently Relevant to Health Maintenance Care Teams First Sampler Relationship Specialty Start Date End Date Glogowski, Ryland Syed, SPLITTER HEAD [address] [place] [address] PCP - General 07/16/22 Jill Renteria MD [address] [place] [address] [email or web address] Hematology and Oncology 08/24/22 Additional Source Comments The information contained in this document represents components of the legal health record. It is not the complete legal health record.[facility]
[2024-06-10 13:33] LABS: C Reactive Protein < 0.10 mg/dL (< or = 0.50); Cholesterol 192 mg/dL (<200); Gamma Glutamyl Transpeptidase 191 U/L (11-51); HDL Cholesterol 95 mg/dL (>40); LDL Cholesterol Calculated 83 mg/dL (<100); Triglycerides 71 mg/dL (<150)
[2024-06-10 13:34] LABS: HBS Num1 0.96 mIU/mL (0-7.99); HBc Num1 0.14 S/CO (0.00-0.79); HBsAGNum1 0.34 S/CO (0.00-0.99); Hepatitis A Antibody IgM 0.12 Index (0-0.79); Hepatitis B Core Antibody Nonreactive (Nonreactive); Hepatitis B Surface Antigen Negative (Negative); ~HepC Num1 0.07 S/CO (0.00-0.79); ~Hepatitis A Antibody IgM Nonreactive (Nonreactive); ~Hepatitis B Surface Antibody NONREACTIVE (Nonreactive); ~Hepatitis C Antibody Nonreactive (Nonreactive)
[2024-06-10 13:47] LABS: Folate 7.9 ng/mL (> or = 4.0); Vitamin B12 588 pg/mL (200-900)
[2024-06-12 02:54] LABS: Ceruloplasmin 27 mg/dL (14-30)
[2024-06-13 13:23] LABS: Alpha Fetoprotein 5.6 ng/mL (<6.1)
[2024-06-13 15:13] LABS: Mitochondrial Antibodies NEGATIVE (NEGATIVE)
[2024-06-14 14:23] LABS: Smooth Muscle Antibody <20 U (<20)
[2024-06-14 18:33] LABS: Vitamin A 48 mcg/dL (38-98)
[2024-06-15 22:43] LABS: Vitamin D 25-OH, D2 <4 ng/mL; Vitamin D 25-OH, D3 6 ng/mL; Vitamin D 25-OH, Total 6 ng/mL (30-100)
[2024-06-16 17:33] LABS: FIB-ALT 41 U/L (9-46); FIB-Alpha-2-Macroglobulin 477 mg/dL (106-279); FIB-Apolipoprotein A1 226 mg/dL (94-176); FIB-GGT 144 U/L (3-70); FIB-Haptoglobin 102 mg/dL (43-212); FIB-Total Bilirubin 0.5 mg/dL (0.2-1.2); Liver Fibrosis Stage F3; Nec Inflam Act Grade A1; Nec Inflam Act Score 0.35; Reference ID 5357114
[2024-06-16 18:12] LABS: Vitamin K1 91 pg/mL (130-1500)
[2024-06-17 12:22] LABS: Vitamin C 0.2 mg/dL (0.2-2.1)
== END 2024-06-10 11:14 | disposition home or self-care (01) ==
LOC: HO.LAB 11:13
PROVIDERS: PCP Internal Medicine; Referring Provider Nurse Practitioner Family; Visit Provider Nurse Practitioner Family
DX: R79.89 Other specified abnormal findings of blood chemistry (principal); D64.9 Anemia, unspecified; K58.9 Irritable bowel syndrome, unspecified; K76.0 Fatty (change of) liver, not elsewhere classified; I25.10 Atherosclerotic heart disease of native coronary artery without angina pectoris; E55.9 Vitamin D deficiency, unspecified; R74.8 Abnormal levels of other serum enzymes; R74.01 Elevation of levels of liver transaminase levels; D50.8 Other iron deficiency anemias
CPT/HCPCS: 36415; 80061; 81596; 82105; 82180; 82306; 82390; 82607; 82746; 82977; 84590; 84597; 86015; 86140; 86381; 86704; 86706; 86709; 86803; 87340; 99202

== ENCOUNTER 2024-06-10 11:13 | Outpatient (AMB) | payer MEDICARE, SELFPAY ==
--- NOTE | 2024-06-10 11:14 | MHC.OFFVIS ---
Vital Signs 06/10/24 11:15 Height 6 ft Weight 233 lb 11.04 oz BMI 31.7 BP 156/86 H Blood Pressure Location Rt brachial Position Sitting Pulse 76 Pulse Source Pulse Oximeter Pulse Oximetry (%) 99 Oxygen Delivery Method Room Air Intake Visit Reasons: Elevated LFTs. Intake Note: liver cirrhosis, Liver enzyme only slight elevated/stable, Pt apparently cancelled his appt with Gastro back in 2020, please see MRIs and ABD - Ryland Sumnerrebeca NEW PATIENT for abn labs. Initial assessment. Prior hx of colo/egd? 2 lifetime. Last [address] Robin. 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 Pt denies any straining at stool or constipation. Pt does report moderate amount of intermittent hematochezia. Pt denies any additional concerns or sx. Windows Application Developer Required: No Accompanied by: Self / Same As Patient Allergies Sulfa (Sulfonamide Antibiotics) [SULFA (SULFONAMIDE ANTIBIOTICS)] Allergy (Intermediate, Verified 05/23/24 13:32) WHOLE FACE SWELLED UP, hives, hives tizanidine Adverse Reaction (Unknown, Verified 05/23/24 13:32) dizziness HPI HPI Elevated LFTs.: Details: 69-year-old male with past medical history of hyperlipidemia, hyponatremia, anemia, tachycardia, elevated liver enzymes, hypertension, postsurgical hypothyroidism, diabetes is here today for initial consultation. Patient was sent to us by his PCP to evaluate increase in his liver enzymes as well as evaluate liver cysts. Patient has been referred to GI in the past. Has not followed up. Patient had colonoscopy in 2019 that was normal, however previous colonoscopy showed tubular adenoma and patient was supposed to follow-up in 5 years. Patient denies melena, hematochezia, unintentional weight loss or ribbon like stools, however he does reports couple episodes of blood in his stool after straining. Patient denies any dyspepsia, dysphagia or odynophagia. Patient reports that he usually eats healthy. Occasionally drinks alcohol. Patient has seen Dr. Renteria for anemia, has been getting iron infusions. Patient is unable to tolerate p.o. iron. Low ferritin initially and then after infusion patient's ferritin was high. Laboratory Tests 01/13/24 03/11/24 04/05/24 11:26 13:24 13:30 Ferritin 15 L AST 48 H 62 H ALT 32 43 H 05/23/24 13:37 Ferritin 459 H AST ALT PFSH Medical History Cataract Nodular thyroid disease Cervical spine arthritis History of toxic multinodular goiter Obesity (BMI 30-39.9) Dyslipidemia Hypertension Post-surgical hypothyroidism Diabetes type 2, controlled Surgical History Hx of total thyroidectomy No pertinent past surgical history Family History Mother Lung cancer Father No problems noted. Brother Mental health disorder Sister Lung cancer Sister No problems noted. Son No problems noted. Social History Household Members: Family Housing: House Alcohol intake: current Patient Tobacco Use Status: Former Tobacco user Years Smoked: 34 years ago e-Cigarette/Vaping Use: Never Used Second Hand Smoke Exposure: No service: No Current occupational status: retired Cognitive needs: No Hearing needs: No Vision needs: Yes Review of Systems Const Denies weight gain and Denies weight loss ENT Reports no additional complaints, Denies dysphagia and Denies odynophagia Card Reports no additional complaints Resp Reports no additional complaints GI Denies abdominal pain, Denies belching, Denies melena, Denies bloating, Denies change in bowel habits, Denies dysphagia, Denies excessive flatus, Denies dyspepsia, Denies heartburn, Denies diarrhea, Denies loose stools, Denies nausea, Denies odynophagia and Denies vomiting Reports no additional complaints Musc Reports no additional complaints Neuro Reports no additional complaints Psych Reports no additional complaints Endo Reports no additional complaints Physical Exam Vital Signs: Last Vital Signs Pulse 76 06/10/24 11:15 BP 156/86 H 06/10/24 11:15 Pulse Ox 99 06/10/24 11:15 Oxygen Delivery Method Room Air 06/10/24 11:15 BMI result Body Mass Index 31.7 Const General: healthy appearing, no acute distress and well developed Nutritional Appearance: well nourished Orientation/consciousness: patient oriented x3 Resp Effort & Inspection: normal respiratory effort, able to speak in complete sentences, no tracheal deviation and symmetric chest movement Auscultation: clear to auscultation bilaterally Cardio Rate: regular rate GI Inspection: Yes normal to inspection and No distended Palpation (GI): Soft to palpation, not firm, nontender and No hepatosplenomegaly present Auscultation: normal bowel sounds General: Yes no CVA tenderness Back/Spine/Pelvis Back: no CVA tenderness Skin General skin exam: elasticity normal, turgor normal and dry skin Neuro General: patient oriented x3 Psych Appearance: grossly normal Mental Status: mental status grossly normal Attitude: cooperative Results Reviewed Results Reviewed: ABDOMINAL ULTRASOUND 06/2023 LIVER: Increased hepatic parenchymal heterogeneity and echogenicity could be associated with hepatocellular disease/hepatic steatosis and severely limits visualization. Correlation with liver function tests and clinical exam recommended to determine further management. Previously identified hypoechoic areas measuring up to 6 mm in the left hepatic lobe are less well characterized, possibly due to diffuse heterogeneity and severely limited visualization. GALLBLADDER: The gallbladder appears contracted, and cannot be adequately evaluated. Gallbladder wall thickening of 5 mm could be related to under distention versus gallbladder pathology. Per jig and fixture builder, patient states following fasting protocol. Assessment & Plan Assessment & Plan (1) Anemia: Code(s): D64.9 - Anemia, unspecified Category: Medical Qualifiers: Anemia type: iron deficiency Iron deficiency anemia type: inadequate dietary iron intake Qualified Code(s): D50.8 - Other iron deficiency anemias (2) Elevated transaminase level: Code(s): R74.01 - Elevation of levels of liver transaminase levels Category: Medical Plan Elevated liver enzymes, will rule out autoimmune disorders. Patient will go for abdominal ultrasound with liver elastography. Will check liver fibrosis panel. Patient currently is taking atorvastatin 80 mg and this could be also contributing to increase liver enzymes. Patient can be switched to rosuvastatin. However discussed with patient dietary changes. Low-fat, low sodium and low carb diet. Also discussed with patient alcohol intake and avoiding it. Discussed exercise. Patient will follow-up in September. Message sent to surgical schedulers about booking procedure end of September. He is agreeable to this plan and verbalizes understanding of instructions. He was given the opportunity to ask questions and all questions answered. Thank you for allowing me to participate in his care Orders: Orders Alpha Fetoprotein Today R79.89 - Other specified abnormal findings of blood chemistry Hepatitis A,B,C Profile Today R79.89 - Other specified abnormal findings of blood chemistry Smooth Muscle Antibody Today R79.89 - Other specified abnormal findings of blood chemistry Vitamin A Today D64.9 - Anemia, unspecified Vitamin D 25-OH (D2 and D3) Today E55.9 - Vitamin D deficiency, unspecified Vitamin C Today D50.9 - Iron deficiency anemia, unspecified US abdomen ceja w elastography Today K76.0 - Fatty (change of) liver, not elsewhere classified C Reactive Protein Today K58.9 - Irritable bowel syndrome, unspecified Ceruloplasmin Today R79.89 - Other specified abnormal findings of blood chemistry Liver Fibrosis Pnl Today K76.0 - Fatty (change of) liver, not elsewhere classified Lipid Panel Today I25.10 - Atherosclerotic heart disease of [place] coronary artery without angina pectoris Mitochondrial Antibody Today R79.89 - Other specified abnormal findings of blood chemistry Gamma Glutamyl Transpeptidase Today R74.8 - Abnormal levels of other serum enzymes Vitamin K1 Today D64.9 - Anemia, unspecified Vitamin B12 and Folate Today D64.9 - Anemia, unspecified, R74.01 - Elevation of levels of liver transaminase levels Coding Level of Care Code New Pt Level 4 (88576) Diagnoses Iron deficiency anemia secondary to inadequate dietary iron intake D50.8 Anemia type: iron deficiency Iron deficiency anemia type: inadequate dietary iron intake Elevated transaminase level R74.01 Time Spent (min) 45 Comment 30 minutes spent with patient and additional 15 minutes spent reviewing his records
[2024-06-10 11:15] VITALS: BP 156/86; PULSE 76; O2SAT 99; BMI 31.7
--- OUTSIDE RECORDS SUMMARY | 2024-06-10 12:22 | XMS_ITS | Clinical Summary ---
Author Organization [facility] Address [phone] [address] [place] [address] Care Team Providers Care Mitigation Supervisor Name Role Phone Ryland Lovell NP Primary Care Provider + Jill Renteria MD Unavailable [phone] Allergies Active Allergy Reactions Criticality Noted Date Comments Sulfa (Sulfonamide Antibiotics) Swelling 07/2022 face Medications Medication Sig Dispensed Refills Start Date End Date Status lancets 28 gauge Misc 1 each by Miscellaneous route 3 (three) times a day before meals. LANCETS THAT GO WITH THE FREESTYLE LITE METER. 300 each 1 08/08/2022 Active losartan (COZAAR) 100 MG tablet Take 100 mg by mouth daily. 06/29/2022 Active atenolol (TENORMIN) 100 MG tablet Take 100 mg by mouth daily. 06/23/2022 Active montelukast (SINGULAIR) 10 mg tablet Take 10 mg by mouth daily. 07/23/2022 Active omeprazole (PRILOSEC) 20 MG capsule Take by mouth daily. 07/02/2022 Acti ve pioglitazone (ACTOS) 30 MG tablet Take 30 mg by mouth daily. 05/28/2022 Active finasteride (PROSCAR) 5 mg tablet Take 5 mg by mouth daily. 06/23/2022 Active ibuprofen (ADVIL,MOTRIN) 800 MG tablet take 1 tablet by mouth 3 times a day as needed for pain 07/07/2022 Active atorvastatin (LIPITOR) 80 MG tablet Take 80 mg by mouth daily. 06/30/2022 Active gabapentin (NEURONTIN) 300 MG capsule Take 300 mg by mouth 3 (three) times a day. 07/30/2022 Active venlafaxine (EFFEXOR-XR) 75 MG 24 hr capsule TAKE THREE CAPSULES BY MOUTH EVERY DAY 06/30/2022 Active metFORMIN (GLUCOPHAGE-XR) 500 MG 24 hr tablet Take 500 mg by mouth daily. 06/23/2022 Active amLODIPine (NORVASC) 2.5 MG tablet Take 2.5 mg by mouth daily. 07/18/2022 Active albuterol 90 mcg/actuation inhaler INHALE ONE PUFF BY MOUTH FOUR TIMES A DAY NEEDED FOR SHORTNESS OF BREATH 07/02/2022 Active levothyroxine (SYNTHROID, LEVOTHROID) 112 MCG tablet Take 112 mcg by mouth every morning. 06/24/2023 Active Active Problems Problem Noted Date Diagnosed Date Graves' disease 11/11/2022 11/11/2022 GERD (gastroesophageal reflux disease) Depressive disorder 08/24/2022 08/24/2022 Diabetes mellitus 08/24/2022 08/24/2022 History of thyroidectomy 08/24/2022 023 Panic disorder 08/24/2022 08/24/2022 Allergic rhinitis Hyperlipidemia Hypertension Type 2 diabetes mellitus with peripheral neuropa thy 1999 Assessment & Plan (01/12/2024 3:16 PM EDT): Control has been good based on previous HbA1c & recent SMBG. Continue to work on eating healthy & keeping active. To call or send in BG with problems with glycemic control. Umalb/creat was normal last year, mildly high in June. Discussed potential meaning of test, needs to be high x 2 to be considered truly abnormal. Reviewed role of glucose/BP control. Is on an ARB. Will do labs soon, to include repeat umalb/creat. To call if hasn't heard from us within 1-2 weeks. Up to date with ophtho. BP under reasonable control. Foot & nail care good. Assessment & Plan (06/29/2023 1:28 PM EDT): Control appears good based o SMBG. Continue to work on eating healthy & keeping active. To call or send in BG with problems with glycemic control. Will do labs next soon, to include with labs for PCP. To call if hasn't heard from us within 1-2 weeks. Up to date with ophtho. BP under reasonable control. Assessment & Plan (11/11/2022 11:07 AM EDT): Control good. Continue to work on eating healthy & keeping active. To call or send in BG with problems with glycemic control. Will do labs next month, to include with labs for PCP. To call if hasn't heard from us within 1-2 weeks. Up to date with ophtho. BP under reasonable control. Assessment & Plan (08/24/2022 8:54 PM EDT): Control has been good. Continue to work on eating healthy & keeping active. To call or send in BG with problems with glycemic control. Scheduled for ophtho. Foot & nail care ok. Will do labs today. To call if hasn't heard from us within 1-2 weeks. BP under reasonable control. Postoperative hypothyroidism 202 0 Overview (11/11/2022): Hx Graves' dz Assessment & Plan (01/12/2024 3:16 PM EDT): Clinically euthyroid. Will repeat labs & adjust as appropriate, gave slip to include labs with upcoming labs for PCP. To call if doesn't hear from me with results within 1-2 weeks after having labs done. Assessment & Plan (06/29/2023 1:29 PM EDT): Clinically euthyroid. Dose was decreased slightly from 125 mcg daily to 1 pill 6 days/week, 1/2 tab on 7th day after labs in August showed a mildly low TSH. Will repeat labs & adjust as appropriate, gave slip to include labs with upcoming labs for PCP. To call if doesn't hear from me with results within 1-2 weeks after having labs done. Assessment & Plan (11/11/2022 11:06 AM EDT): Clinically euthyroid. Dose was decreased slightly from 125 mcg daily to 1 pill 6 days/week, 1/2 tab on 7th day after last labs showed a mildly low TSH. Will repeat labs next month, gave slip to include labs with upcoming labs for PCP. To call if doesn't hear from me with results within 1-2 weeks after having labs done. Assessment & Plan (08/24/2022 8:54 PM EDT): Reports good consistency taking rx. Will check levels & adjust as appropriate. Iron deficiency anemia Assessment & Plan (08/24/2022 8:52 PM EDT): Improved s/p iron infusion. Will check levels & fwd to hematology. 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 Not on azucena e 08/15/2022 Are you concerned about learning? Not on file 08/15/2022 No 08/15/2022 No 08/15/2022 Digital Access Answer Date Recorded No 09/15/2022 No 09/15/2022 Reliable internet access at home? Not on file 09/15/2022 Device with a working camera? Not on file Sex and Gender Information Value Date Recorded Sex Assigned at Not on file Gender Identity Not on file Sexual Orientation Not on file Last Filed Vital Signs Vital Sign Reading Time Taken Comments Blood Pressure 140/72 01/12/2024 10:22 AM EDT Pulse 82 01/12/2024 10:22 AM EDT Temperature 36.3 ??C (97.3 ??F) 01/12/2024 10:22 AM E DT Respiratory Rate 16 06/29/2023 12:50 PM EDT Oxygen Saturation 98% 01/12/2024 10:22 AM EDT Inhaled Oxygen Concentration - - Weight 106.1 kg (234 lb) 01/12/2024 10:22 AM EDT Height 180.2 cm (5' 10.95 ) 01/12/2024 10:22 AM EDT Body Mass Index 32.69 01/12/2024 10:22 AM EDT Plan of Treatment Upcoming Encounters Date Type Department Care Team (Late st Contact Info) Description 07/05/2024 11:00 AM EDT Office Visit [facility] Endocrinology [address] [phone] Teresa Don MD [address] [place] [phone] [email or web address] Maintenance Due Date Last Done Comments DEPRESSION SCREENING 1968 HEPATITIS B SCREENING 1974 HEPATITIS C SCREENING 1974 COLOGUARD 2001 COLONOSCOPY 2001 COLORECTAL CANCER SCREENING 2001 FIT TEST 2001 FOBT 2001 SIGMOIDOSCOPY 2001 VIRTUAL COLONOSCOPY 2001 PNEUMOCOCCAL VACCINES (50+ years) (2 of 2 - PCV) 11/12/2005 11/12/2004 ZOSTER VACCINES (1 of 2) 2006 RSV VACCINE (1 - Risk 60-74 years 1-dose series) 2016 ABDOMINAL AORTIC ANEURYSM (AAA) SCREENING 2021 DIABETIC EYE EXAM 08/21/2022 HEMOGLOBIN A1C 02/21/2023 08/21/2022 INFLUENZA VACCINE (#1) 2023 06/08/2017 COVID-19 VACCINE ( - season) 2023 POTASSIUM LEVEL 06/30/2024 07/01/2023, 10/19, 08/21/2022 BLOOD PRESSURE 07/11/2024 01/12/2024 CREATININE LEVEL 01/12/2025 01/13/2024, , 11/11/2022, Additional history exists TSH LEVEL 01/12/2025 01/13/2024, 06/18, 11/11/2022, Additional history exists Adult Td,Tdap Booster 11/03/2026 11/03/2016 SMOKING STATUS SCREENING (Once After 26 Yrs) Completed 01/12/2024 HEPATITIS A VACCINES Aged Out No long er eligible based on patient's age to complete this topic HEPATITIS B VACCINES Aged Out No long er eligible based on patient's age to complete this topic HIB VACCINES Aged Out No longer eligi ble based on patient's age to complete this topic MENINGOCOCCAL VACCINES (ACWY) Aged Out No longer eligible based on patient's age to complete this topic Medical Devices Not on file Procedures Procedure Name Priority Date/Time Associated Diagnosis Comments TSH Routine 01/13/2024 3:26 PM EDT COMPREHENSIVE METABOLIC PANEL Routine 01/13/2024 3:26 PM EDT BASIC METABOLIC PANEL Routine 07/01/2023 3:07 PM EDT Type 2 diabetes mellitus with peripheral neuropathy HEMOGLOBIN A1C Routine 08/21/2022 12:48 PM EDT Type 2 diabetes mellitus with peripheral neuropathy from Last 3 Months or Most Recently Relevant to Health Maintenance Results * Comprehensive metabolic panel (01/13/2024 3:26 PM EDT) Historical Provider LAB BLOOD ORDERAB LES * TSH (01/13/2024 3:26 PM EDT) Historical Provider LAB BLOOD ORDERAB LES * Basic metabolic panel (07/01/2023 3:07 PM EDT) Blood Teresa Don MD LAB BLOOD CIARA FRAZIER Performing Organization Address City/State/[facility] Co de Phone Number [address] [address] * Hemoglobin A1c (08/21/2022 12:48 PM EDT) HEMOGLOBIN A1C 5.5 4.3 - 5.8 % [facility] Blood 08/21/2022 12:4 8 PM EDT 08/21/2022 12:50 PM EDT Teresa Don MD LAB BLOOD CIARA FRAZIER [facility] [address] [place] [address] from Last 3 Months or Most Recently Relevant to Health Maintenance Care Teams Mitigation Supervisor Relationship Specialty Start Date End Date Glogowski, Ryland Syed, CERTIFIED ADAPTED PHYSICAL EDUCATOR [address] [place] [address] PCP - General 07/16/22 Jill Renteria MD [address] [place] [address] [email or web address] Hematology and Oncology 08/24/22 Additional Source Comments The information contained in this document represents components of the legal health record. It is not the complete legal health record.[facility]
== END 2024-06-10 12:12 | disposition home or self-care (01) ==
PROVIDERS: PCP Internal Medicine; Referring Provider Nurse Practitioner Family; Visit Provider Nurse Practitioner Family
DX: D50.8 Other iron deficiency anemias (principal); R74.01 Elevation of levels of liver transaminase levels
CPT/HCPCS: 99204

== ENCOUNTER 2024-06-16 12:25 | Outpatient (AMB) | payer MEDICARE, SELFPAY ==
--- NOTE | 2024-06-16 12:27 | MHC.PC.OV ---
Vital Signs 06/16/24 12:29 Height 6 ft Weight 234 lb BMI 31.7 BP 136/82 Blood Pressure Location Lt brachial Position Sitting Pulse 80 Pulse Source Pulse Oximeter Temp 97.9 F Temp Source Oral Pulse Oximetry (%) 98 Intake Visit Reasons: Annual PE--transfer from Dr Lovell Allergies Sulfa (Sulfonamide Antibiotics) [SULFA (SULFONAMIDE ANTIBIOTICS)] Allergy (Intermediate, Verified 06/16/24 12:27) WHOLE FACE SWELLED UP, hives, hives tizanidine Adverse Reaction (Unknown, Verified 06/16/24 12:27) dizziness Medication List - Last Reconciled 06/16/24 by Ilsa Nelson MD albuterol sulfate 90 mcg/actuation 1 inh inhalation QID PRN amlodipine 2.5 mg PO DAILY Anoro Ellipta 62.5-25 mcg/actuation (umeclidinium-vilanterol) 1 inh inhalation DAILY NS atenolol 100 mg PO DAILY atorvastatin 80 mg PO DAILY blood sugar diagnostic tid testing finasteride 5 mg PO DAILY gabapentin 300 mg PO TID 90 days ibuprofen 800 mg PO DAILY PRN lancets tid testing levothyroxine 112 mcg PO QAM 90 days losartan 100 mg PO DAILY 90 days metformin ER 500 mg PO BID 90 days montelukast 10 mg PO DAILY omeprazole 20 mg PO DAILY 90 days pioglitazone 30 mg PO DAILY venlafaxine ER 225 mg (3 x 75 mg) PO DAILY Tobacco use date assessed: 06/16/24 Fall risk assessment: No Falls in past year Last assessed Fall Risk: 06/16/24 Dental Screening Dental Screen Date: 06/16/24 Did you have a dental visit in the last 12 months?: Yes Did you have a dental problem in the last 6 months where you did not have access to dental care?: No Was dental information given to patient?: Patient has dentist HPI Annual PE--transfer from Dr Lovell HPI Details Patient presents for physical. He reports dyspnea on exertion when walking up and down the stairs for a few years. He contributes the symptoms to COPD. Patient reports episodes of cough with clear sputum and wheezing waking him up a few times at night. He has been using albuterol multiple times. He denies chest pains or palpitations. Patient is established with underwear cutter for type 2 diabetes well controlled on current medications with most recent A1c below 6%. Patient has a diagnosis of iron deficiency anemia for few years and has been getting iron infusion at least once a year because he can not tolerate p.o. iron supplement. Patient denies hematochezia melena abdominal pain but he never had upper endoscopy. He has been abusing alcohol for many years but recently has been cutting down to 2 or 3 beers a day. Patient has been taking ibuprofen 800 mg daily for his chronic neck pain in addition to gabapentin. Patient will have a repeat colonoscopy this year for history of colon polyps [facility] Medical History (Updated 06/16/24 @ 14:51 by Ilsa Nelson MD) Cataract Obesity (BMI 30-39.9) Dyslipidemia Hypertension Post-surgical hypothyroidism Diabetes type 2, controlled Surgical History (Updated 06/16/24 @ 14:48 by Ilsa Nelson MD) Hx of total thyroidectomy Family History Mother Lung cancer Father No problems noted. Brother Mental health disorder Sister Lung cancer Sister No problems noted. Son No problems noted. Social History Household Members: Family Housing: House Alcohol intake: current Patient Tobacco Use Status: Former Tobacco user Years Smoked: 34 years ago e-Cigarette/Vaping Use: Never Used Second Hand Smoke Exposure: No service: No Current occupational status: retired Cognitive needs: No Hearing needs: No Vision needs: Yes Questionnaire PHQ-9 Over the last 2 weeks, how often have you been bothered by any of the following problems? 3. Trouble falling or staying asleep, or sleeping too much: several days 4. Feeling tired or having little energy: several days Source: Developed by Drs. José Miguel Bucio, Marysol Echavarria, Elian Cardozo and colleagues, with an educational jaron from [employer]. Thrive Questionnaire Date Thrive assessed: 06/10/24 I am a: Patient What is your living situation today?: I have a steady place to live Within the past 12 months, did the food you bought not last and you didn't have the money to get more?: Never true Within the past 12 months, did you worry whether your food would run out before you got money to buy more?: Never true Do you have trouble paying for medicines?: No Do you have trouble getting transportation to medical appointments?: No Do you have trouble paying your heating and electricity bill?: No Do you have trouble taking care of your child, family member or friend?: No Do you have trouble with day-to-day activities such as bathing, preparing meals, shopping, managing finances, etc.?: No Are you currently unemployed and looking for a job?: No Are you interested in more education?: No Please select the resources that you would like help with: None Currently or been in a relationship where the following occur: No concerns reported THRIVE Score: 0 AUDIT C Alcohol Use Questionnaire (AUDIT-C) 1. How often do you have a drink containing alcohol?: 4 or more times a week 2. How many drinks containing alcohol do you have on a typical day when you are drinking?: 5 or 6 3. How often do you have six or more drinks on one occasion?: Daily or almost daily Total Score: 10 DANIELA-7 AMB Questionnaire DANIELA-7 Date DANIELA - 7 assessed: 04/27/23 Feeling nervous, anxious, or on edge: 0 = Not at all Not being able to stop or control worryin = Not at all Worrying too much about different things: 0 = Not at all Trouble relaxin = Not at all Being so restless that it is hard to sit still: 0 = Not at all Becoming easily annoyed or irritable: 1 = Several days Feeling afraid as if something awful might happen: 1 = Several days Total DANIELA-7 score (0-4 normal; 5-9 mild; 10-14 moderate; 15-21 severe): 2 Source: Developed by Drs. José Miguel Bucio, Marysol Echavarria, Elian Cardozo and colleagues, with an educational jaron from [employer]. Review of Systems Const All systems reviewed & are unremarkable except as noted in HPI and below Reports no additional complaints Eyes Reports no additional complaints ENT Reports no additional complaints Card Reports no additional complaints Resp Reports no additional complaints GI Reports no additional complaints Reports no additional complaints Physical exam (Primary Care) Vital Signs: Last Vital Signs Temp 97.9 F 06/16/24 12:29 Pulse 80 06/16/24 12:29 BP 136/82 06/16/24 12:29 Pulse Ox 98 06/16/24 12:29 BMI result Body Mass Index 31.7 Tobacco/Smoking Status: Tobacco use Status Tobacco use date assessed 06/16/24 06/16/24 12:30 Patient Tobacco Use Status Former Tobacco user 06/16/24 12:30 e-Cigarette/Vaping Use Never Used 06/16/24 12:30 Thrive Assessment: Date of Thrive Assessment Date Thrive assessed 06/10/24 06/16/24 12:30 Currently or been in a relationship where the following occur: No concerns reported Const General: no acute distress HENMT Head: Yes normal to inspection Ears: hearing grossly normal bilaterally Face and sinus: Yes normal facial exam Mouth: Normal oral and palatal mucosa present Throat: Yes posterior oropharynx normal Eyes General: appearance normal, both eyes and all related structures Neck Neck: Yes no lymphadenopathy and Yes supple Resp Effort & Inspection: normal respiratory effort Auscultation: diminished lung sounds Cardio Rhythm: regular rhythm Heart sounds: S1 normal heart sound present and S2 normal heart sound present GI Inspection: Yes normal to inspection Palpation (GI): Soft to palpation Percussion: Yes normal to percussion Auscultation: normal bowel sounds Extrem Other: Diabetic foot exam skin is intact monofilament and vibration sensation intact bilaterally General: Yes no clubbing, cyanosis or edema Coding Level of Care Code Est Pt Prev Care >65y(49606) Diagnoses COPD (chronic obstructive pulmonary disease) J44.9 ETOH abuse F10.10 Diabetes type 2, controlled E11.9 Post-surgical hypothyroidism E89.0 Hypertension I10 Physical exam Z00.00 Sleep apnea G47.30 Iron deficiency anemia secondary to inadequate dietary iron intake D50.8 Anemia type: iron deficiency Iron deficiency anemia type: inadequate dietary iron intake Alcoholic liver disease K70.9 Hx of colonoscopy Z98.890 CASTILLO (dyspnea on exertion) R06.09 Assessment & Plan Assessment & Plan (1) COPD (chronic obstructive pulmonary disease): Comment: History of secondhand smoking for many years Code(s): J44.9 - Chronic obstructive pulmonary disease, unspecified Category: Medical Plan: Obtain PFTs start Anoro and continue albuterol as needed (2) ETOH abuse: Comment: fatty liver, ETOH overuse >20 yrs Code(s): F10.10 - Alcohol abuse, uncomplicated Category: Social Hx Plan: Cutting down on alcohol discussed with the patient. (3) Diabetes type 2, controlled: Comment: Patient is established with Dr. Evans Code(s): E11.9 - Type 2 diabetes mellitus without complications Category: Medical Plan: Most recent A1c was 5.9% 5 months ago. ADA diet increase physical activity continue current medications discussed with the patient he will have a fasting blood work today (4) Post-surgical hypothyroidism: Code(s): E89.0 - Postprocedural hypothyroidism Category: Medical Plan: Continue levothyroxine check TSH (5) Hypertension: Code(s): I10 - Essential (primary) hypertension Category: Medical Plan: Continue current medications (6) Physical exam: Code(s): Z00.00 - Encounter for general adult medical examination without abnormal findings Category: Medical Plan: Well-balanced diet regular physical activity weight loss discussed with the patient. He will have a colonoscopy done this year. Patient will schedule diabetic eye exam. Follow-up in 3 months with a fasting labs before (7) Sleep apnea: Code(s): G47.30 - Sleep apnea, unspecified Category: Medical Plan: Check sleep study (8) Anemia: Comment: Iron def, on Iron infusion since 2019 , intolerant to oral iron supplement Code(s): D64.9 - Anemia, unspecified Category: Medical Qualifiers: Anemia type: iron deficiency Iron deficiency anemia type: inadequate dietary iron intake Qualified Code(s): D50.8 - Other iron deficiency anemias Plan: Patient has been on iron infusion for iron deficiency anemia for 3 years. He needs to have EGD to evaluate for source of GI bleed and evaluate for portal hypertension with history of heavy alcohol drinking and cirrhotic liver on the MRI (9) Alcoholic liver disease: Comment: hx of ETOH abuse for>20 yrs, MRI 2020 moderate hepatic steatosis Code(s): K70.9 - Alcoholic liver disease, unspecified Category: Medical Plan: As above patient was advised to avoid taking ibuprofen or any NSAIDs (10) Hx of colonoscopy: Comment: 2019, negative, but hx of TA on previous colonoscopy, recheck in 5 years was recommended Code(s): Z98.890 - Other specified postprocedural states Category: Surgical Plan: Patient will have colonoscopy (11) CASTILLO (dyspnea on exertion): Code(s): R06.09 - Other forms of dyspnea Category: Medical Plan: Obtain echocardiogram to evaluate for ejection fraction and segmental wall motion abnormalities Orders: Orders PFT pulmonary function test Today J44.9 - Chronic obstructive pulmonary disease, unspecified Comprehensive [place]. Panel Fast Today E11.9 - Type 2 diabetes mellitus without complications, E89.0 - Postprocedural hypothyroidism, I10 - Essential (primary) hypertension, Z00.00 - Encounter for general adult medical examination without abnormal findings Complete Blood Count Auto Diff Today E11.9 - Type 2 diabetes mellitus without complications, E89.0 - Postprocedural hypothyroidism, I10 - Essential (primary) hypertension, Z00.00 - Encounter for general adult medical examination without abnormal findings Microalbumin, Random (w Creat) Today E11.9 - Type 2 diabetes mellitus without complications, E89.0 - Postprocedural hypothyroidism, I10 - Essential (primary) hypertension, Z00.00 - Encounter for general adult medical examination without abnormal findings PSA,Total (Free>4and<10) Today E11.9 - Type 2 diabetes mellitus without complications, E89.0 - Postprocedural hypothyroidism, I10 - Essential (primary) hypertension, Z00.00 - Encounter for general adult medical examination without abnormal findings Comprehensive [place]. Panel Fast 3 Months E11.9 - Type 2 diabetes mellitus without complications, I10 - Essential (primary) hypertension, J44.9 - Chronic obstructive pulmonary disease, unspecified Hemoglobin A1c 3 Months E11.9 - Type 2 diabetes mellitus without complications, I10 - Essential (primary) hypertension, J44.9 - Chronic obstructive pulmonary disease, unspecified Lipid Panel Today E11.9 - Type 2 diabetes mellitus without complications, E89.0 - Postprocedural hypothyroidism, I10 - Essential (primary) hypertension, Z00.00 - Encounter for general adult medical examination without abnormal findings TSH reflex Free T4 Today E11.9 - Type 2 diabetes mellitus without complications, E89.0 - Postprocedural hypothyroidism, I10 - Essential (primary) hypertension, Z00.00 - Encounter for general adult medical examination without abnormal findings Hemoglobin A1c Today E11.9 - Type 2 diabetes mellitus without complications, E89.0 - Postprocedural hypothyroidism, I10 - Essential (primary) hypertension, Z00.00 - Encounter for general adult medical examination without abnormal findings IRON PROFILE Today E11.9 - Type 2 diabetes mellitus without complications, E89.0 - Postprocedural hypothyroidism, I10 - Essential (primary) hypertension, Z00.00 - Encounter for general adult medical examination without abnormal findings CA echo transthoracic complete Today R06.09 - Other forms of dyspnea RT home sleep study Today G47.30 - Sleep apnea, unspecified Lipid Panel 3 Months E11.9 - Type 2 diabetes mellitus without complications, I10 - Essential (primary) hypertension, J44.9 - Chronic obstructive pulmonary disease, unspecified Complete Blood Count Auto Diff 3 Months E11.9 - Type 2 diabetes mellitus without complications, I10 - Essential (primary) hypertension, J44.9 - Chronic obstructive pulmonary disease, unspecified Microalbumin, Random (w Creat) 3 Months E11.9 - Type 2 diabetes mellitus without complications, I10 - Essential (primary) hypertension, J44.9 - Chronic obstructive pulmonary disease, unspecified Medications: New Anoro Ellipta 62.5-25 mcg/actuation (umeclidinium-vilanterol) 1 inh inhalation DAILY 60 ea 3RF NS Refilled albuterol sulfate 90 mcg/actuation 1 inh inhalation QID PRN 6.7 grams 1RF shortness of breath or wheezing
[2024-06-16 12:29] VITALS: BP 136/82; PULSE 80; TEMP 36.6; O2SAT 98; BMI 31.7
--- OUTSIDE RECORDS SUMMARY | 2024-06-16 14:49 | XMS_ITS | Clinical Summary ---
Author Organization [facility] Address [phone] [address] [place] [address] Care Team Providers Care Egg Breaker Name Role Phone Ryland Lovell NP Primary Care Provider + Jill Renteria MD Unavailable [phone] Allergies Active Allergy Reactions Criticality Noted [...] to hematology. 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 Family [...] Description 07/05/2024 11:00 AM EDT Office Visit [facility] Endocrinology [address] [phone] Teresa Don MD [address] [place] [phone] [email or web address] Maintenance Due Date Last Done Comments [...] LAB BLOOD CIARA FRAZIER Performing Organization Address City/State/[facility] Co de Phone Number [address] [address] * Hemoglobin A1c (08/21/2022 12:48 PM EDT) HEMOGLOBIN A1C 5.5 4.3 - 5.8 % [facility] Blood 08/21/2022 12:4 8 PM EDT 08/21/2022 12:50 PM EDT Teresa Don MD LAB BLOOD CIARA FRAZIER [facility] [address] [place] [address] from Last 3 Months or Most Recently Relevant to Health Maintenance Care Teams Egg Breaker Relationship Specialty Start Date End Date Glogowski, Ryland Syed, COMPONENT PREP OPERATOR [address] [place] [address] PCP - General 07/16/22 Jill Renteria MD [address] [place] [address] [email or web address] [facility] 08/24/22 Additional Source Comments The information contained in this document represents components of the legal health record. It is not the complete legal health record.[facility]
== END 2024-06-16 13:10 | disposition home or self-care (01) ==
PROVIDERS: PCP Internal Medicine; Visit Provider Internal Medicine
DX: Z00.00 Encounter for general adult medical examination without abnormal findings (principal); J44.9 Chronic obstructive pulmonary disease, unspecified; E11.9 Type 2 diabetes mellitus without complications; K70.9 Alcoholic liver disease, unspecified; F10.10 Alcohol abuse, uncomplicated; E89.0 Postprocedural hypothyroidism; I10 Essential (primary) hypertension; G47.30 Sleep apnea, unspecified; D50.8 Other iron deficiency anemias; Z98.890 Other specified postprocedural states; R06.09 Other forms of dyspnea

== ENCOUNTER 2024-06-16 12:25 | Outpatient (REF) | payer MEDICARE, SELFPAY ==
--- OUTSIDE RECORDS SUMMARY | 2024-06-16 15:41 | XMS_ITS | Clinical Summary ---
Author Organization [facility] Address [phone] [address] [place] [address] Care Team Providers Care Auto Finance Sales Rep Name Role Phone Ryland Lovell NP Primary Care Provider + Jill Renteria MD Unavailable [phone] Allergies Active Allergy Reactions Criticality Noted [...] hematology. 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 Family [...] Description 07/05/2024 11:00 AM EDT Office Visit [facility] Endocrinology [address] [phone] Teresa Don MD [address] [place] [phone] [email or web address] Maintenance Due Date Last Done Comments [...] LAB BLOOD CIARA FRAZIER Performing Organization Address City/State/[facility] Co de Phone Number [address] [address] * Hemoglobin A1c (08/21/2022 12:48 PM EDT) HEMOGLOBIN A1C 5.5 4.3 - 5.8 % [facility] Blood 08/21/2022 12:4 8 PM EDT 08/21/2022 12:50 PM EDT Teresa Don MD LAB BLOOD CIARA FRAZIER [facility] [address] [place] [address] from Last 3 Months or Most Recently Relevant to Health Maintenance Care Teams Auto Finance Sales Rep Relationship Specialty Start Date End Date Glogowski, Ryland Syed, ASSISTANT KITCHEN MANAGER [address] [place] [address] PCP - General 07/16/22 Jill Renteria MD [address] [place] [address] [email or web address] [facility] 08/24/22 Additional Source Comments The information contained in this document represents components of the legal health record. It is not the complete legal health record.[facility]
[2024-06-16 16:10] LABS: MANUAL DIFF FLAG NO
[2024-06-16 16:18] LABS: Basophils Absolute Auto 0.1 X10*3/uL (0.0-0.2); Basophils Percent Auto 0.8 % (0-2); Eosinophils Absolute Auto 0.1 X10*3/uL (0.0-0.4); Eosinophils Percent Auto 1.1 % (0-4); Hematocrit 36.7 % (42.0-52.0); Hemoglobin 12.4 g/dl (14.0-18.0); Imm Gran Abs Auto 0.06 X10*3/uL (0.00-0.03); Imm Gran Pct Auto 0.9 % (0.0-0.4); Lymphocytes Absolute Auto 1.1 X10*3/uL (1.2-4.9); Lymphocytes Percent Auto 17.2 % (20-40); Mean Corpuscular HGB Conc 33.8 g/dl (31.0-36.0); Mean Corpuscular Hemoglobin 31.3 pg (27.0-33.0); Mean Corpuscular Volume 92.7 fL (80.0-98.0); Monocytes Absolute Auto 0.6 X10*3/uL (0.1-1.2); Monocytes Percent Auto 9.2 % (2-11); Neutrophils Absolute Auto 4.7 x10*3/uL (2.0-8.3); Neutrophils Percent Auto 70.8 % (45-73); Platelet Count 232 X10*3/uL (160-400); Red Blood Count 3.96 X10*6/uL (4.60-5.80); Red Cell Distribution Width 19.8 % (11.0-16.0); White Blood Count 6.6 X10*3/uL (4.8-10.8)
[2024-06-16 16:30] LABS: Estimated Average Glucose 140 mg/dL; Hemoglobin A1C 155.6687 umol/L; Hemoglobin A1c % 6.5 % (<6.0); Total Hemoglobin (HGBA1C) 3277.3787 umol/L
[2024-06-16 17:01] LABS: Alanine Aminotransferase 49 U/L (0-40); Albumin Level 4.5 g/dL (3.5-5.0); Alkaline Phosphatase 70 U/L (39-117); Anion Gap 14 (12-20); Aspartate Amino Transferase 50 U/L (5-37); Bilirubin Total 0.7 mg/dL (0.0-1.0); Blood Urea Nitrogen 15 mg/dL (9-16); Calcium 9.6 mg/dL (8.4-10.2); Carbon Dioxide 26 mmol/L (22-29); Chloride 99 mmol/L (96-108); Cholesterol 174 mg/dL (<200); Estimated Glomerular Filt Rate > 60; Glucose Fasting 154 mg/dL (60-99); HDL Cholesterol 87 mg/dL (>40); Iron 132 mcg/dL (45-160); LDL Cholesterol Calculated 74 mg/dL (<100); Percent Iron Saturation 38 % (15-50); Sodium 134 mmol/L (135-145); Total Iron Binding Capacity 352 mcg/dL (228-428); Total Protein 8.1 g/dL (6.5-8.0); Triglycerides 65 mg/dL (<150); Unsaturated Iron Binding 220 ug/dL
[2024-06-16 17:09] LABS: PSA,Total (Free>4and<10) 0.28 ng/mL (0.00-4.00)
[2024-06-16 17:10] LABS: Microalbum/Creatinine Ratio Ur 30.1 ug/mg cr (<30); TSH reflex Free T4 3.08 uIU/mL (0.32-4.0)
== END 2024-06-16 12:26 | disposition home or self-care (01) ==
LOC: HO.HMGCLDS 12:25
PROVIDERS: PCP Internal Medicine; Visit Provider Internal Medicine
DX: Z00.00 Encounter for general adult medical examination without abnormal findings (principal); J44.9 Chronic obstructive pulmonary disease, unspecified; E11.9 Type 2 diabetes mellitus without complications; F10.10 Alcohol abuse, uncomplicated; E89.0 Postprocedural hypothyroidism; I10 Essential (primary) hypertension; G47.30 Sleep apnea, unspecified; D50.8 Other iron deficiency anemias; K70.9 Alcoholic liver disease, unspecified; R06.09 Other forms of dyspnea; Z79.899 Other long term (current) drug therapy; Z12.5 Encounter for screening for malignant neoplasm of prostate
CPT/HCPCS: 36415; 80053; 80061; 82043; 82570; 83036; 83540; 84153; 84443; 85025; 99397

== ENCOUNTER → 2024-06-30 13:59 | Outpatient (REF) | payer MEDICARE, SELFPAY ==
--- NOTE | 2024-06-30 14:02 | CA_ITS ---
Transthoracic Echocardiogram Patient (Last, First, Middle): Arsalan Zuniga J Gender: Male Date of : 1955 Age: 69 Procedure Date: 06/30/2024 Procedure Type: Transthoracic Echocardiogram Location: OP Height: 182.88 cm Weight: 106.14 kg BSA: 2.28 m2 Heart Rate: bpm BP: 136 / 82 mmHg Senior Naval Parachutist: RICHARD Referring MD: Ilsa Nelson MD Symptoms: R06.09 - Other forms of dyspnea Study Quality: Technically Difficult, contrast ECG Rhythm: Sinus Conclusions: - The left ventricular systolic function is normal. The calculated ejection fraction is 64% by biplane method. - No obvious valvular pathology seen on this study. Findings Procedure Information Contrast agent, definity, is being given per protocol without apparent complications. Left Ventricle Normal left ventricular cavity size. There is normal left ventricular wall thickness. The left ventricular systolic function is normal. The calculated ejection fraction is 64% by biplane method. There is no evidence of regional wall motion abnormalities. There is mild septal and mild basal asymmetric hypertrophy. Right Ventricle Normal right ventricular cavity size. There is mildly decreased right ventricular systolic function. Atria Both atria are normal in size. Aortic Valve There is a normal trileaflet aortic valve. There is no aortic valve stenosis. There is no aortic valve regurgitation. Mitral Valve There is mild mitral annular calcification. There is no mitral valve regurgitation. There is no mitral valve stenosis. Pulmonic Valve The pulmonic valve is likely normal. Tricuspid Valve There is no tricuspid valve regurgitation. Tricuspid regurgitation envelope is inadequate for calculation of right ventricular systolic pressure. Great Vessels The asc aorta is normal in size. Venous The inferior vena cava was not well visualized. Pericardium/Pleural Prominent epicardial adipose tissue noted. There is no evidence of pericardial effusion. Prior Study Comparison No significant change compared to prior study dated: 02/15/2019. Recommendations, Care & Conclusions No obvious valvular pathology seen on this study. Measurements 2D Linear Measurements IVSd: 1.10 0.6-0.9/0.6-1.0 cm LVIDd: 5.03 3.9-5.3/4.2-5.9 cm LVIDd Index: 2.21 2.4-3.2/2.2-3.1 cm/m2 LVIDs: 3.62 2.0-3.6 cm LVPWd: 0.91 0.7-1.1 cm LA Diam: 4.00 2.7-3.8/3.0-4.0 cm LAIDs Index: 1.75 1.5-2.3 cm/m2 LV Mass: 229.90 67-162/88-224 g LV Mass Index: 100.83 43-95/49-115 g/m2 LVOT Diam: 2.20 3.0+(-)1.3 cm 2D Systolic Function EF 4C: 61.40 >55% EF 2C: 64.50 >55% EF BiP: 63.50 >55% Mitral Valve MV Pk E: 0.84 MV PK A: 0.68 MV Decel Time: 187.00 E/A: 1.20 E'Lateral: 8.81 E'Medial: 7.51 E/E' Med: 11.10 E/E' Lat: 9.50 PHT: 55.00 MVA PHT: 4.00 Decel [place]: 4.46 Aortic Valve AoV Pk Josh: 1.09 AoV Mn Josh: 0.76 AoV VTI: 0.22 AoV Pk Grad: 5.00 Aov Mn Grad: 3.00 SABAS Cont.VTI: 2.97 LVOT LVOT Pk Josh: 0.81 LVOT Mn Josh: 0.56 LVOT VTI: 0.17 LVOT Pk Grad: 3.00 LVOT Mn Grad: 1.00 LVOT Diam: 2.20 LVOT Area: 3.80 Diastolic Function MV Pk E: 0.84 MV Pk A: 0.68 E/A: 1.20 E'Medial: 7.51 E/E' Med: 11.10 E' Laterial: 8.81 E/E' Lat: 9.50 Right Ventricle TAPSE (mm): 16.80 TVS' Josh: 9.14 Great Vessels Aorta Sinus of Valsalva: 3.61 2.0-3.5 cm Ao Asc: 3.40 2.1-3.4 cm Updated in Other Vendor System with Status of Final Bony Roe MD electronically signed on 07/01/2024 4:23:56 PM with status of Final
--- OUTSIDE RECORDS SUMMARY | 2024-06-30 17:48 | XMS_ITS | Clinical Summary ---
Author Organization [facility] Address [address] [place] [address] Phone Care Team Providers Care History Card Clerk Name Role Phone Ryland Lovell NP Primary Care Provider + Jill Renteria MD Unavailable [phone] Allergies Active Allergy Reactions Criticality Noted [...] to hematology. COPD (chronic obstructive pulmonary disease) penitentiary current use of oral hypoglycemic drug Family History Medical History Relation Comments Cancer Mother lung CA Cancer Sister lung CA Thyroid disease Neg Hx Relation Status Comments Mother Sister Social History Tobacco Use Types Packs/Day Years Used Date Smoking Tobacco: Former Cigarettes 2 15 1 - 1986 Passive Smoke Exposure: Past Smokeless [...] Upcoming Encounters Date Type Department Care Team (Lacie st Contact Info) Description 07/05/2024 11:00 AM EDT Office Visit [facility] Endocrinology [address] [phone] Teresa Don MD [address] [place] [phone] [email or web address] Maintenance Due Date Last Done Comments DEPRESSION SCREENING 1968 HEPATITIS C SCREENING 1974 COLOGUARD 2001 COLONOSCOPY [...] LAB BLOOD CIARA FRAZIER Performing Organization Address City/[facility]/ZIP Co de Phone Number [address] [address] * Hemoglobin A1c (08/21/2022 12:48 PM EDT) HEMOGLOBIN A1C 5.5 4.3 - 5.8 % [facility] Blood 08/21/2022 12:4 8 PM EDT 08/21/2022 12:50 PM EDT Teresa Don MD LAB BLOOD ORDYulisa FRAZIER Performing Organization Address City/[facility]/ZIP Co de Phone Number [address] [address] from Last 3 Months or Most Recently Relevant to Health Maintenance Care Teams History Card Clerk Relationship Specialty Start Date End Date Ryland Lovell NP [address] [place] [phone] PCP - General 07/16/22 Jill Renteria MD [address] [place] [address] [place] [address] [email or web address] [facility] 08/24/22 Additional Source Comments The information contained in this document represents components of the legal health record. It is not the complete legal health record.[facility]
== END ==
LOC: HO.CARD 13:59
PROVIDERS: PCP Internal Medicine; Visit Provider Internal Medicine
DX: R06.09 Other forms of dyspnea (principal)
CPT/HCPCS: 93306; Q9957

== ENCOUNTER → 2024-06-30 14:02 | Outpatient (BNV) | payer MEDICARE, SELFPAY | PROVIDERS: PCP Internal Medicine; Visit Provider Internal Medicine | DX: I42.2 Other hypertrophic cardiomyopathy (principal); I34.81 Nonrheumatic mitral (valve) annulus calcification | CPT/HCPCS: 93306 ==

== ENCOUNTER 2024-07-08 11:15 | Outpatient (REF) | payer MEDICARE, SELFPAY ==
--- NOTE | ~2024-07-08 | US_ITS ---
EXAMINATION: US ABDOMEN LIMITED WITH LIVER ELASTOGRAPHY HISTORY: K76.0 - Fatty (change of) liver, not elsewhere classified TECHNIQUE: Real-time grayscale ultrasound imaging of the right upper quadrant was performed and images were reviewed. COMPARISON: Comparison is made with the prior examination dated 07/16/2023. FINDINGS: Liver: The right lobe of the liver measures 16.4 cm in size. The left lobe of the liver measures 8.9 cm in size. The liver demonstrates increased echotexture, consistent with steatosis. There is a 4 x 4 by 6 mm hypoechoic focus in the left lobe which was seen on prior ultrasound dated 08/20/2020. No intrahepatic biliary ductal dilatation is identified. There is normal hepatopedal flow in the portal vein. Ultrasound elastography of the liver was performed with 10 separate measurements of the liver parenchyma with the patient in the supine position. Measurements were obtained approximately 2 cm below Lynn's capsule and perpendicular to the capsule. Images are of satisfactory quality. The median shear wave velocity is 2.15 m/s. The interquartile range/median (IQR/median) is 0.02. Gallbladder and biliary tree: The gallbladder is partially contracted, but otherwise unremarkable, without definite evidence of calculi, wall thickening, or pericholecystic fluid. There is no sonographic Chinchilla sign. The common bile duct is normal in caliber measuring 5 mm. Right Kidney: The right kidney measures 11.8 cm in length. The right kidney is unremarkable, without evidence of masses, hydronephrosis, or calculi. Pancreas: The pancreatic head, neck, and body are unremarkable. The pancreatic tail is obscured by bowel gas. Abdominal aorta and inferior vena cava: The visualized portions of the abdominal aorta and inferior vena cava are normal in caliber. There is no free fluid in the right upper quadrant. US/US abdomen ceja w elastography IMPRESSION: Hepatic steatosis. Nonspecific 6 mm hypoechoic lesion in the left lobe, unchanged from 08/30/2020. The median shear wave velocity in the liver is 2.15 m/s, corresponding to a median liver stiffness of 14.0 kPa. The IQR/median value is 0.02. This is indicative of a quality data set. Findings are indicative of a high elastography value indicating advanced chronic liver disease. REFERENCE: Society of Radiologists in Ultrasound Liver Stiffness Thresholds (2020): LIVER STIFFNESS THRESHOLDS: *Shear wave velocity less than 1.3 m/s (Liver Stiffness equal or less than 5 kPa): High probability of being normal. *Shear wave velocity less than 1.7 m/s (Liver Stiffness less than 9 kPa): In the absence of other known clinical signs, rules out compensated advanced chronic liver disease. *Shear wave velocity between 1.7-2.1 m/s (Liver Stiffness 9-13 kPa): Suggestive of compensated advanced chronic liver disease but need further test for confirmation. *Shear wave velocity between 2.1-2.4 m/s (Liver Stiffness 13-17 kPa): Rules in compensated advanced chronic liver disease. *Shear wave velocity greater than 2.4 m/s (Liver Stiffness over 17 kPa): Suggestive of clinically significant portal hypertension. QUALITY OF DATA SET: *IQR/Median value equal or less than 0.15 implies a quality data set. *IQR/Median value over 0.15 implies a poor quality data set. SIGNIFICANT CHANGE FROM PRIOR EXAM: Significant change if liver stiffness measurement is 10% or greater from prior exam. OTHER CONSIDERATIONS: The stage of liver fibrosis may be overestimated in the setting of acute hepatitis, liver inflammation, elevated liver function tests, hepatic vascular congestion, obstructive cholestasis, non-fasting state, and infiltrative diseases such as amyloidosis and lymphoma. In some patients with NAFLD, the liver stiffness thresholds for compensated advanced chronic liver disease may be lower. In causes other than viral hepatitis and NAFLD, liver stiffness thresholds are not well established. Electronically signed by: José Miguel Montes MD 07/08/2024 01:32 PM EDT
--- OUTSIDE RECORDS SUMMARY | 2024-07-08 13:42 | XMS_ITS | Clinical Summary ---
Author Organization [facility] Address [address] [place] [address] Phone Care Team Providers Care Hollow Handle Knife Assembler Name Role Phone Jill Renteria MD Unavailable [phone] Ilsa Nelson MD Primary Care Provider [phone] Allergies Active Allergy Reactions Criticality Noted Date [...] MG capsule Take by mouth daily. 07/02/2022 Active pioglitazone (ACTOS) 30 MG tablet Take 30 [...] mcg by mouth every morning. 06/24/2023 Active cholecalciferol (VITAMIN D3) 5,000 unit capsule Take 1 capsule by mouth once a week. 06/17/2024 Active FREESTYLE LITE Strp stripsIndication s:Type 2 diabetes mellitus with peripheral neuropathy To monitor glucose once daily 100 strip 3 07/05/2024 Active FREESTYLE LITE Strp stripsIndication s:Type 2 diabetes mellitus with peripheral neuropathy Use as directed to monitor glucose once daily 100 strip 3 07/05/2024 5 Discontinue d(Reorder) Active Problems Problem Noted Date Diagnosed Date Graves' disease 11/11/2022 11/11/2022 GERD (gastroesophageal reflux disease) 3 Depressive disorder 08/24/2022 08/24/2022 Diabetes mellitus 08/24/2022 08/24/2022 History of thyroidectomy 08/24/2022 023 Panic disorder 08/24/2022 08/24/2022 Allergic rhinitis Hyperlipidemia Hypertension Type 2 diabetes mellitus with peripheral neuropa thy 1999 Assessment & Plan (07/05/2024 3:04 PM EDT): Control has been good based on previous HbA1c & recent SMBG. There is some possibility that HbA1c might not be accurate given anemia, but SMBG continue to show good control. Continue to work on eating healthy & keeping active. To call or send in BG with problems with glycemic control. Umalb/creat was normal on labs in December, having been minimally high earlier last year. Would continue to monitor. BP well controlled, on ARB. Up to date with ophtho. Assessment & Plan (01/12/2024 3:16 PM EDT): [...] (11/11/2022): Hx Graves' dz Assessment & Plan (07/05/2024 3:02 PM EDT): Euthyroid on labs in December. Await more recent labs from PCP. Assessment & Plan (01/12/2024 3:16 PM EDT): [...] to hematology. COPD (chronic obstructive pulmonary disease) [facility] current use of oral hypoglycemic drug Encounters Date Type Department Care Team Description 07/06/2024 Orders Only [facility] [address] [place] [address] Provider, MD Rahat 07/05/2024 11:00 AM EDT Office Visit [facility] [place] [address] [place] [address] Teresa Don MD Type 2 diabetes mellitus with peripheral neuropathy (Primary Dx); Postoperative hypothyroidism; [facility] current use of oral hypoglycemic drug 07/05/2024 Telephone [facility] [place] [address] [place] [address] Teresa Don MD 07/05/2024 Refill [facility] [address] [place] [address] Laurita Celaya RN Medication Refill (Corrected rx for glucose testing strips) from Last 3 Months Immunizations Name Administration Dates Next Due Influenza, whole 06/08/2017 Pneumococcal polysaccharide PPSV23 11/12/2004 Tdap 11/03/2016 Family History Medical History Relation Comments Cancer Mother lung CA Cancer Sister lung CA Thyroid disease Neg Hx Relation Status Comments Mother Sister Social History Tobacco Use Types Packs/Day Years Used Date Smoking Tobacco: Former Cigarettes 2 15 1 972 - 1986 Passive Smoke Exposure: Past Smokeless [...] Sign Reading Time Taken Comments Blood Pressure 126/68 07/05/2024 11:11 AM EDT Pulse 70 07/05/2024 11:11 AM EDT Temperature 36.3 ??C (97.3 ??F) 07/05/2024 11:11 AM E DT Respiratory Rate 16 07/05/2024 11:11 AM EDT Oxygen Saturation 98% 07/05/2024 11:11 AM EDT Inhaled Oxygen Concentration - - Weight 105.7 kg (233 lb) 07/05/2024 11:11 AM EDT Height 180.2 cm (5' 10.95 ) 07/05/2024 11:11 AM EDT Body Mass Index 32.55 07/05/2024 11:11 AM EDT Plan of Treatment Upcoming Encounters Date Type Department Care Team (Late st Contact Info) Description 01/24/2025 11:40 AM EDT Office Visit [facility] Endocrinology [address] [address] Teresa Don MD [address] [place] [phone] [email or web address] Health Maintenance Due Date Last Done Comments [...] LEVEL 06/30/2024 07/01/2023, 10/19, 08/21/2022 BLOOD PRESSURE 01/05/2025 07/05/2024 CREATININE LEVEL 06/16/2025 06/16/2024, , 07/01/2023, Additional history exists TSH LEVEL 06/16/2025 06/16/2024, 12/20, 07/01/2023, Additional history exists Adult Td,Tdap Booster 11/03/2026 11/03/2016 SMOKING STATUS SCREENING (Once After 26 Yrs) Completed 07/05/2024 HEPATITIS A VACCINES Aged Out No long er eligible based on patient's age to complete this topic HIB VACCINES Aged Out No longer eligi ble based on patient's age to complete this topic MENINGOCOCCAL VACCINES (ACWY) Aged Out No longer eligible based on patient's age to complete this topic Medical Devices Not on file Procedures Procedure Name Priority Date/Time Associated Diagnosis Comments CBC AND DIFFERENTIAL Routine 06/16/2024 9:46 AM EST COMPREHENSIVE METABOLIC PANEL Routine 06/16/2024 9:46 AM EST HEMOGLOBIN A1C Routine 06/16/2024 9:46 AM EST LIPID PANEL Routine 06/16/2024 9:46 AM EST TSH Routine 06/16/2024 9:46 AM EST MICROALBUMIN/CREATININ E RATIO, RANDOM URINE Routine 06/16/2024 9:46 AM EST BASIC METABOLIC PANEL Routine 07/01/2023 3:07 PM EDT Type 2 diabetes mellitus with peripheral neuropathy HEMOGLOBIN A1C Routine 08/21/2022 12:48 PM EDT Type 2 diabetes mellitus with peripheral neuropathy from Last 3 Months or Most Recently Relevant to Health Maintenance Results * Comprehensive metabolic panel (06/16/2024 9:46 AM EST) Historical Provider LAB BLOOD ORDERAB LES * Microalbumin/creatinine ratio, random urine (06/16/2024 9:46 AM EST) Urine Historical Provider MD URINE ORDERABLES * CBC and differential (06/16/2024 9:46 AM EST) Blood Historical Provider LAB BLOOD ORDERAB LES * TSH (06/16/2024 9:46 AM EST) Historical Provider LAB BLOOD ORDERAB LES * Hemoglobin A1c (06/16/2024 9:46 AM EST) Only the most recent of2 resultswithin the time period is included. Historical Provider LAB BLOOD ORDERAB LES * Lipid panel (06/16/2024 9:46 AM EST) Historical Provider LAB BLOOD ORDERAB LES * Basic metabolic panel (07/01/2023 3:07 PM EDT) Blood Teresa Don MD LAB BLOOD CIARA FRAZIER [facility] Organization Address City/State/ZIP Co de Phone Number [address] [phone] from Last 3 Months or Most Recently Relevant to Health Maintenance Care Teams Hollow Handle Knife Assembler Relationship Specialty Start Date End Date Ilsa Nelson MD [address] [place] [address] PCP - General Internal Medicine 07/05/24 Jill Renteria MD [address] [place] [phone] [email or web address] [email or web address] 08/24/22 Additional Source Comments The information contained in this document represents components of the legal health record. It is not the complete legal health record.[facility]
--- OUTSIDE RECORDS SUMMARY | 2024-07-08 13:43 | XMS_ITS | Encounter Summary ---
Author Organization [facility] Address [address] [place] [address] Phone Care Team Providers Care Civil Draftsman Name Role Phone Jill Renteria MD Unavailable [phone] Ilsa Nelson MD Primary Care Provider [phone] Encounter Details Date Type Department Care Team (Late st Contact Info) Description 07/06/2024 Orders Only [facility] [address] [place] [address] Provider, MD Rahat [address] [place], [place] [phone] Social History Tobacco Use Types Packs/Day Years Used Date Smoking Tobacco: Former Cigarettes 2 15 1 972 - 1986 Passive Smoke Exposure: Past Smokeless Tobacco: Never Alcohol Use Standard Drinks/Week Comments Yes 20 [...] on file Sexual Orientation Not on file documented as of this encounter Plan of Treatment Upcoming Encounters Date Type Department Care Team (Late st Contact Info) Description 01/24/2025 11:40 AM EDT Office Visit [facility] Endocrinology [address] [address] Teresa Don MD [address] [place] [phone] [email or web address] documented as of this encounter Procedures Procedure Name Priority Date/Time Associated Diagnosis Comments COMPREHENSIVE METABOLIC PANEL Routine 06/16/2024 9:46 AM EST MICROALBUMIN/CREATININE RATIO, RANDOM URINE Routine 06/16/2024 9:46 AM EST CBC AND DIFFERENTIAL Routine 06/16/2024 9:46 AM EST TSH Routine 06/16/2024 9:46 AM EST HEMOGLOBIN A1C Routine 06/16/2024 9:46 AM EST LIPID PANEL Routine 06/16/2024 9:46 AM EST documented in this encounter Results * CBC and differential (06/16/2024 9:46 AM EST) Blood Historical Provider MD LAB BLOOD ORDERAB LES * Comprehensive metabolic panel (06/16/2024 9:46 AM EST) Historical Provider MD LAB BLOOD ORDERAB LES * Hemoglobin A1c (06/16/2024 9:46 AM EST) Historical Provider MD LAB BLOOD ORDERAB LES * Lipid panel (06/16/2024 9:46 AM EST) Historical Provider MD LAB BLOOD ORDERAB LES * TSH (06/16/2024 9:46 AM EST) Historical Provider MD LAB BLOOD ORDERAB LES * Microalbumin/creatinine ratio, random urine (06/16/2024 9:46 AM EST) Urine Historical Provider URINE ORDERABLES documented in this encounter Visit Diagnoses Not on filedocumented in this encounter Care Teams Civil Draftsman Relationship Specialty Start Date End Date Ilsa Nelson MD [address] [place] [address] PCP - General Internal Medicine 07/05/24 Jill Renteria MD [address] [place] [address] [email or web address] Hematology [email or web address] Oncology 08/24/22 documented as of this encounter Additional Source Comments The information contained in this document represents components of the legal health record. It is not the complete legal health record.[facility]
--- OUTSIDE RECORDS SUMMARY | 2024-07-08 13:43 | XMS_ITS | Encounter Summary ---
Author Organization [facility] Address [address] [place] [address] Phone Care Team Providers Care Production Boring Machine Operator Name Role Phone Jill Renteria MD Unavailable [phone] Ilsa Nelson MD Primary Care Provider [phone] Encounter Details Date Type Department Care Team (Late st Contact Info) Description 07/05/2024 Telephone [facility] Endocrinology [address] [phone] Teresa Don MD [address] [place] [phone] [email or web address] Social History Tobacco Use Types Packs/Day Years [...] on file documented as of this encounter Progress Notes * Kathryn Rooney MA - 07/06/2024 9:46 AM EDT Scanned labs * Kathryn Rooney MA - 07/05/2024 3:20 PM EDT Faxed request * Teresa Don MD - 07/05/2024 3:00 PM EDT Pls make sure we get recent labs done [place] [facility] documented in this encounter Plan of Treatment Upcoming Encounters Date Type Department Care Team (Late st Contact Info) Description 01/24/2025 11:40 AM EDT Office Visit [facility] Endocrinology [address] [phone] Teresa Don MD [address] [place] [phone] [email or web address] documented as of this encounter Visit Diagnoses Not on filedocumented in this encounter Care Teams Production Boring Machine Operator Relationship Specialty Start Date End Date Ilsa Nelson MD [address] [place] [address] PCP - General Internal Medicine 07/05/24 Jill Renteria MD [address] [place] [address] [place] [address] [email or web address] Hematology [email or web address] Oncology 08/24/22 documented as of this encounter Additional Source Comments The information contained in this document represents components of the legal health record. It is not the complete legal health record.[facility]
--- OUTSIDE RECORDS SUMMARY | 2024-07-08 13:43 | XMS_ITS | Encounter Summary ---
Author Organization [facility] Address [address] [place] [address] Phone Care Team Providers Care Pickling Tank Operator Name Role Phone Jill Renteria MD Unavailable [phone] Ilsa Nelson MD Primary Care Provider [phone] Reason for Visit * Reason Onset Date Comments Medication Refill 07/05/2024 Corrected rx f or glucose testing strips Encounter Details Date Type Department Care Team ([facility] st Contact Info) Description 07/05/2024 Refill [facility] [address] [place] [phone] Laurita Celaya, RN [phone] [place] [address] [email or web address] Medication Refill (Corrected rx for glucose testing strips) Social History Tobacco Use Types Packs/Day Years Used Date Smoking Tobacco: Former Cigarettes 2 15 1 972 - 1987 Passive Smoke Exposure: Past Smokeless Tobacco: Never [...] as of this encounter Progress Notes * Bhanu Karen NOLAN Melvin - 07/05/2024 1:47 PM EDT The pharmacy need RX to not state use as directed and to only state to test blood sugar once daily Pended rx * Laurita Celaya RN - 07/05/2024 1:08 PM EDT [facility] pharmacy asking for corrected rx for the freestyle lite strips. States it needs to have the directions for when pt is testing his blood sugar specified on the rx and cannot say use as directed Tried to give verbal but [facility] states they could not accept a verbal. documented in this encounter Plan of Treatment Upcoming Encounters Date Type Department Care Team (Late st Contact Info) Description 01/24/2025 11:40 AM EDT Office Visit [facility] Endocrinology [address] [phone] Teresa Don MD [address] [place] [phone] [email or web address] documented as of this encounter Visit Diagnoses Diagnosis Type 2 diabetes mellitus with peripheral neuropathy documented in this encounter Care Teams Pickling Tank Operator Relationship Specialty Start Date End Date Ilsa Nelson MD [facility] [place] [address] PCP - General Internal Medicine 07/05/24 Jill Renteria MD [address] [facility] [place] [address] [email or web address] Hematology [email or web address] Oncology 08/24/22 documented as of this encounter Additional Source Comments The information contained in this document represents components of the legal health record. It is not the complete legal health record.[facility]
--- OUTSIDE RECORDS SUMMARY | 2024-07-08 13:43 | XMS_ITS | Encounter Summary ---
Author Organization [facility] Address [address] [place] [address] Phone Care Team Providers Care Help Desk Intern Name Role Phone Jill Renteria MD Unavailable [phone] Ilsa Nelson MD Primary Care Provider [phone] Reason for Visit * Reason Comments Follow Up Visit 9 mon f/u Diabetes Mellitus Encounter Details Date Type Department Care Team (Late st Contact Info) Description 07/05/2024 11:00 AM EDT Office Visit [facility] Endocrinology [address] [phone] Teresa Don MD [address] [place] [phone] [email or web address] Type 2 diabetes mellitus with peripheral neuropathy (Primary Dx); Postoperative hypothyroidism; joint terminal attack controller current use of oral hypoglycemic drug Social History Tobacco Use Types Packs/Day Years [...] on file documented as of this encounter Last Filed Vital Signs Vital Sign Reading [...] Mass Index 32.55 07/05/2024 11:11 AM EDT documented in this encounter Progress Notes * Teresa Don MD - 07/05/2024 11:00 AM EDT Subjective: Patient ID: Arsalna Zuniga is a 69 y.o. male. HPI In the interval since the last visit, has been having ongoing/recurrent issues w/ low iron, requiring infusions, thinks has had 4 infusions in the last 2 yrs. Feels well other than when iron is low. Last infusion not too long ago. Has had echocardiogram. For liver ultrasound & EGD. A1C: 5.9% in December, 6.5% recently Blood glucose monitorin-1x/day, reviewed download, low-mid 100s Diet: usually eating 1 meal/day, little snacking @ hs - PB crackers or tamazight yogurt; mostly healthychoices, but not much fruit/veggies over the winter Activity: not active over the winter, starting to get more active, to start PT d/t arthritis in knees Ophtho: no changes in vision, up to date, all ok Podiatry/Foot: no LE symptoms Current Outpatient Medications Ordered in Epic Medication Sig albuterol 90 mcg/actuation inhaler INHALE ONE PUFF BY MOUTH FOUR TIMES A DAY NEEDED FOR SHORTNESS OF BREATH amLODIPine (NORVASC) 2.5 MG tablet Take 2.5 mg by mouth daily. atenolol (TENORMIN) 100 MG tablet Take 100 mg by mouth daily. atorvastatin (LIPITOR) 80 MG tablet Take 80 mg by mouth daily. cholecalciferol (VITAMIN D3) 5,000 unit capsule Take 1 capsule by mouth once a week. finasteride (PROSCAR) 5 mg tablet Take 5 mg by mouth daily. gabapentin (NEURONTIN) 300 MG capsule Take 300 mg by mouth 3 (three) times a day. ibuprofen (ADVIL,MOTRIN) 800 MG tablet take 1 tablet by mouth 3 times a day as needed for pain lancets 28 gauge Misc 1 each by Miscellaneous route 3 (three) times a day before meals. LANCETS THAT GO WITH THE FREESTYLE LITE METER. levothyroxine (SYNTHROID, LEVOTHROID) 112 MCG tablet Take 112 mcg by mouth every morning. losartan (COZAAR) 100 MG tablet Take 100 mg by mouth daily. metFORMIN (GLUCOPHAGE-XR) 500 MG 24 hr tablet Take 500 mg by mouth daily. montelukast (SINGULAIR) 10 mg tablet Take 10 mg by mouth daily. omeprazole (PRILOSEC) 20 MG capsule Take by mouth daily. pioglitazone (ACTOS) 30 MG tablet Take 30 mg by mouth daily. venlafaxine (EFFEXOR-XR) 75 MG 24 hr capsule TAKE THREE CAPSULES BY MOUTH EVERY DAY FREESTYLE LITE Strp strips To monitor glucose once daily Review of Systems as above & Energy pretty good. Weight stable. Sleeping ok. Nocturia 4-5x. No CP, edema. + SOB, worse w/ exertion, @ baseline. Has COPD. Bowels ok. Objective: Physical Exam Vitals reviewed. Constitutional: General: He is not in acute distress. Assessment/Plan: Problem List Items Addressed This Visit Endocrine Type 2 diabetes mellitus with peripheral neuropathy - Primary Control has been good based on previous [...] on ARB. Up to date with ophtho. Postoperative hypothyroidism Euthyroid on labs in December. Await more recent labs from PCP. Other joint terminal attack controller current use of oral hypoglycemic drug I have maintained a long-term, longitudinal relationship with this patient, overseeing care of chronic conditions, including diabetes. This care relationship has significantly influenced my decision-making and treatment plans during today's encounter. documented in this encounter Miscellaneous Notes * Assessment & Plan Note - Teresa Don MD - 07/05/2024 3:04 PM EDT Associated Problem(s): Type 2 diabetes mellitus with peripheral neuropathy Control has been good based on previous [...] on ARB. Up to date with ophtho. * Assessment & Plan Note - Teresa Don MD - 07/05/2024 3:02 PM EDT Associated Problem(s): Postoperative hypothyroidism Euthyroid on labs in December. Await more recent labs from PCP. documented in this encounter Plan of Treatment Upcoming Encounters Date Type Department Care Team (Late st Contact Info) Description 01/24/2025 11:40 AM EDT Office Visit [facility] Endocrinology [address] [place] [address] Teresa Don MD [address] [place] [phone] documented as of this encounter Visit Diagnoses Diagnosis Type 2 diabetes mellitus with peripheral neuropathy- Primary Postoperative hypothyroidism Postsurgical hypothyroidism joint terminal attack controller current use of oral hypoglycemic drug documented in this encounter Care Teams Help Desk Intern Relationship Specialty Start Date End Date Ilsa Nelson MD [place] [address] PCP - General Internal Medicine 07/05/24 Jill Renteria MD [address] [place] [phone] [email or web address] 08/24/22 documented as of this encounter Additional Source Comments The information contained in this document represents components of the legal health record. It is not the complete legal health record.[facility]
== END 2024-07-08 11:16 | disposition home or self-care (01) ==
LOC: HO.US 11:15
PROVIDERS: PCP Internal Medicine; Visit Provider Nurse Practitioner Family
DX: K76.0 Fatty (change of) liver, not elsewhere classified (principal)
CPT/HCPCS: 76705; 76981

== ENCOUNTER → 2024-07-08 11:17 | Outpatient (BNV) | payer MEDICARE, SELFPAY | PROVIDERS: PCP Internal Medicine; Visit Provider Radiology Diagnostic Radiology | DX: K76.0 Fatty (change of) liver, not elsewhere classified (principal) | CPT/HCPCS: 76981 ==

== ENCOUNTER 2024-08-09 13:00 | Outpatient (RCR) | payer MEDICARE, SELFPAY ==
--- NOTE | 2024-07-20 13:56 | MHC.PT.EP ---
[facility] [place] Office [place] Office [place] Office [address] Liane Salena [address] [phone] F: [phone] F: [phone] F: [phone] F: [phone] Physical Therapy Plan of Care Date of Evaluation: 07/20/24 Date of Surgery: n/a Diagnosis: B knee pain Assessment: Patient is a 69 year old male presenting to PT with complaints of pain in B knee pain. Pt reports onset of pain began about 2 years ago due to insidious onset. He presents today with impairments in pain, ROM, knee strength, hip strength. Pt's current occupation is retired, with baseline physical activities including ADLs, yardwork, squatting. Pt expresses [facility] goal of reducing pain, and is motivated to work towards this in PT. Clinical presentation today is most consistent with signs and sx associated with B knee pain and pt will benefit from skilled PT 2 week x 4 weeks to address the following problems and impairments noted upon evaluation: pain, ROM, knee strength, hip strength. These problems limit the patient with the following functional activities: ADLs, yardwork, squatting. The prescribed treatment plan of care is medically necessary. Co-morbidities of T2DM, HTN were identified and taken into considerations of plan of care. Pt was educated on HEP, role of PT, prognosis, POC. Frequency and Duration: The patient will be seen 2 x week x 4 weeks Short Term Goals: Pt will demonstrate improved hip MMT strength by 1/3 grade in 2 weeks. Pt will demonstrate improved knee MMT strength by 1/3 grade in 2 weeks. Energy Conservation Technician Goals: Pt will demonstrate improved LEFI score by 9 points in 4 weeks for improved functional mobility. Pt will demonstrate ability to negotiate stairs with min to no pain in 4 weeks for improved access to his home. Treatment Plan: Modalities to reduce pain, spasms and effusion. Manual therapy to restore motion and function. Therapeutic exercise to improve strength and flexibility. Neuromuscular re-education for posture and balance. Therapeutic activities to return to functional activities of daily living. Electronically signed by: Hien Garcia, PT, DPT, ATC Please sign and return to therapist. Thank you for your referral.
--- NOTE | 2024-08-15 13:00 | MHC.PT.DC ---
[facility] [place] Office [place] Office [place] Office [address] Joshua Martino 140 [facility] [phone] F: [phone] F: [phone] F: [phone] F: [phone] Physical Therapy Discharge Report Diagnosis: B knee pain Date of Surgery: n/a Date of Evaluation: 07/20/24 Date of Discharge: 08/15/24 Treatments to Date: 5 Cancellations to Date: 2 No Shows to Date: 0 Discharge Status: Patient Elected to Stop Discharge Summary: Pt presented to his appointment stating he would like to be d/c. Pt d/c per his request. Electronically signed by: Hien Garcia, PT, DPT, ATC Please sign and return to therapist. Thank you for your referral.
== END 2024-08-15 13:00 | disposition home or self-care (01) ==
LOC: HO.PTCHIC 13:00
PROVIDERS: PCP Internal Medicine; Visit Provider Internal Medicine
DX: M25.561 Pain in right knee (principal); M25.562 Pain in left knee
CPT/HCPCS: 97110; 97140; 97161

== ENCOUNTER 2024-08-16 12:47 | Outpatient (REF) | payer MEDICARE, SELFPAY ==
--- NOTE | 2024-08-16 13:00 | PFT_ITS ---
Spirometry [] Lung Volumes [] Diffusion Capacity [] Methacholine Challenge [] Flow Volume Loops [] MVV [] MIP/MEP(Max inspiratory pressure/Max expiratory pressure) [] 6 Minute Walk Test [] ABG [] Interpretation [] MTDD
[2024-08-16 13:43] VITALS: PULSE 79; O2SAT 99
--- OUTSIDE RECORDS SUMMARY | 2024-08-16 14:38 | XMS_ITS | Clinical Summary ---
Author Organization [facility] Address [address] [place] [address] Phone Care Team Providers Care Oyster Harvester Name Role Phone Jill Renteria MD Unavailable [phone] Ilsa Nelson MD Primary Care Provider [phone] Allergies Active Allergy Reactions Criticality Noted Date [...] a week. 06/17/2024 Active FREESTYLE LITE Strp stripsIndications: Type 2 diabetes mellitus with peripheral neuropathy To monitor glucose once daily 100 strip 3 07/05/2024 Active Active Problems Problem Noted Date Diagnosed [...] to hematology. 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 Encounters Date Type Department Care Team Description 07/11/2024 Orders Only [facility] Internal Medicine [address] [place] [address] ProviderRahat MD 07/06/2024 Orders Only [facility] [address] [place] [address] ProviderRahat MD 07/05/2024 11:00 AM EDT Office Visit [facility] [place] [address] [facility] [place] [address] Teresa Don MD Type 2 diabetes mellitus with peripheral neuropathy (Primary Dx); Postoperative hypothyroidism; 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 07/05/2024 Telephone [facility] [place] [address] [place] [address] Teresa Don MD 07/05/2024 Refill [facility] [address] [place] [address] [place] [address] Belia Laurita, is architect Refill (Corrected rx for glucose testing strips) [...] Description 01/24/2025 11:40 AM EDT Office Visit [facility] End[facility]ology [address] [address] Teresa Don MD [address] [place] [phone] [email or web address] Water Health Maintenance Due Date Last Done Comments [...] Procedure Name Priority Date/Time Associated Diagnosis Comments OUTSIDE LAB Routine 06/16/2024 1:30 PM EST CBC AND DIFFERENTIAL Routine 06/16/2024 9:46 [...] Recently Relevant to Health Maintenance Results * Outside Lab (06/16/2024 1:30 PM EST) Historical Provider LAB BLOOD ORDERAB LES * Comprehensive metabolic [...] Teresa Don MD LAB BLOOD CIARA FRAZIER [facility] Organization Address City/State/ZIP Co de Phone Number [address] [address] from Last 3 Months or Most Recently Relevant to Health Maintenance Arsalan Zuniga Personal/Family Self 1955 [address] [place], [place] Arsalan Zuniga Personal/Family Self 1955 [address] [place], [place] Arsalan Zuniga Personal/Family Self 1955 [address] [facility], Arsalan Personal/Family Self 1955 [address] [facility] [place] [address] E[place], Arsalan Personal/Family Self 1955 [address] [facility] [place] [address] Efrain, Arsalan Personal/Family Self [address] [facility] [place] [address] Efrain, Arsalan Personal/Family Self [address] [facility] [place], Arsalan Personal/Family Self 1955 [address] [facility] [place] Care Teams Oyster Harvester Relationship Specialty Start Date End Date Ilsa Nelson MD 1960 [place], [place] PCP - General Internal Medicine 07/05/24 Jill Renteria MD [address] [place] [phone] [email or web address] Hematology and Oncology 08/24/22 Additional Source Comments The information contained in this document represents components of the legal health record. It is not the complete legal health record.[facility]
--- OUTSIDE RECORDS SUMMARY | 2024-08-16 14:38 | XMS_ITS | Encounter Summary ---
Author Organization [facility] Address [address] [place] [address] Phone Care Team Providers Care Brass Pourer Name Role Phone Jill Renteria MD Unavailable [phone] Ilsa Nelson MD Primary Care Provider [phone] Encounter Details Date Type Department Care Team (Late Contact Info) Description 07/11/2024 Orders Only [facility] Internal Medicine [address] [place] [address] Provider, MD Rahat [address] [place], [place] [id number] Social History Tobacco Use Types Packs/Day Years [...] Description 01/24/2025 11:40 AM EDT Office Visit [facility] Endocrinology [address] [place] [address] Teresa Don MD [address] [place] [phone] [email or web address] documented as of this encounter Procedures Procedure Name Priority Date/Time Associated Diagnosis Comments OUTSIDE LAB Routine 06/16/2024 1:30 PM EST documented in this encounter Results * Outside Lab (06/16/2024 1:30 PM EST) Historical Provider LAB BLOOD ORDERAB LES documented in this encounter Visit Diagnoses Not on filedocumented in this encounter Care Teams Brass Pourer Relationship Specialty Start Date End Date Ilsa Nelson MD [facility] [place] [address] PCP - General Internal Medicine 07/05/24 Jill Renteria MD [address] [place] [address] [email or web address] Hematology and Oncology 08/24/22 documented as of this encounter Additional Source Comments The information contained in this document represents components of the legal health record. It is not the complete legal health record.[facility]
== END 2024-08-16 12:48 | disposition home or self-care (01) ==
LOC: HO.RESP 12:47
PROVIDERS: PCP Internal Medicine; Visit Provider Internal Medicine
DX: J44.9 Chronic obstructive pulmonary disease, unspecified (principal)
CPT/HCPCS: 94010; 94640; 94727; 94729; 95806

== ENCOUNTER → 2024-08-16 13:00 | Outpatient (BNV) | payer MEDICARE, SELFPAY | PROVIDERS: PCP Internal Medicine; Visit Provider Internal Medicine Pulmonary Disease | DX: J44.9 Chronic obstructive pulmonary disease, unspecified (principal) | CPT/HCPCS: 94060; 94727; 94729 ==

== ENCOUNTER 2024-09-08 10:19 | Outpatient (REF) | payer MEDICARE, SELFPAY ==
[2024-09-08 13:02] LABS: MANUAL DIFF FLAG NO
[2024-09-08 13:08] LABS: Basophils Absolute Auto 0.1 X10*3/uL (0.0-0.2); Basophils Percent Auto 0.6 % (0-2); Eosinophils Absolute Auto 0.1 X10*3/uL (0.0-0.4); Eosinophils Percent Auto 1.8 % (0-4); Hematocrit 39.1 % (42.0-52.0); Hemoglobin 12.9 g/dl (14.0-18.0); Imm Gran Abs Auto 0.06 X10*3/uL (0.00-0.03); Imm Gran Pct Auto 0.8 % (0.0-0.4); Lymphocytes Absolute Auto 0.7 X10*3/uL (1.2-4.9); Lymphocytes Percent Auto 9.1 % (20-40); Mean Corpuscular Hemoglobin 32.3 pg (27.0-33.0); Mean Corpuscular Volume 97.8 fL (80.0-98.0); Mean Platelet Volume 9.8 fL (9.4-12.4); Monocytes Absolute Auto 0.6 X10*3/uL (0.1-1.2); Monocytes Percent Auto 7.9 % (2-11); Neutrophils Absolute Auto 6.3 x10*3/uL (2.0-8.3); Neutrophils Percent Auto 79.8 % (45-73); Platelet Count 232 X10*3/uL (160-400); White Blood Count 7.9 X10*3/uL (4.8-10.8)
[2024-09-08 13:16] LABS: Estimated Average Glucose 123 mg/dL; Hemoglobin A1C 137.7815 umol/L; Hemoglobin A1c % 5.9 % (<6.0); Total Hemoglobin (HGBA1C) 3408.0823 umol/L
[2024-09-08 13:33] LABS: Alanine Aminotransferase 46 U/L (0-40); Albumin Level 4.5 g/dL (3.5-5.0); Alkaline Phosphatase 70 U/L (39-117); Anion Gap 15 (12-20); Aspartate Amino Transferase 60 U/L (5-37); Bilirubin Total 0.7 mg/dL (0.0-1.0); Blood Urea Nitrogen 11 mg/dL (9-16); Calcium 9.7 mg/dL (8.4-10.2); Carbon Dioxide 28 mmol/L (22-29); Chloride 99 mmol/L (96-108); Cholesterol 217 mg/dL (<200); Estimated Glomerular Filt Rate > 60; Glucose Fasting 168 mg/dL (60-99); HDL Cholesterol 91 mg/dL (>40); LDL Cholesterol Calculated 108 mg/dL (<100); Potassium 4.7 mmol/L (3.3-5.1); Sodium 137 mmol/L (135-145); Total Protein 7.8 g/dL (6.5-8.0); Triglycerides 90 mg/dL (<150)
[2024-09-08 13:58] LABS: Creatinine Urine 69.27 mg/dL; Microalbum/Creatinine Ratio Ur 31.7 ug/mg cr (<30)
== END 2024-09-08 10:20 | disposition home or self-care (01) ==
LOC: HO.HMGCLDS 10:19
PROVIDERS: PCP Internal Medicine; Visit Provider Internal Medicine
DX: J44.9 Chronic obstructive pulmonary disease, unspecified (principal); I10 Essential (primary) hypertension; E11.9 Type 2 diabetes mellitus without complications
CPT/HCPCS: 36415; 80053; 80061; 82043; 82570; 83036; 85025

== ENCOUNTER 2024-09-13 11:43 | Outpatient (AMB) | payer MEDICARE, SELFPAY ==
[2024-09-13 11:46] VITALS: BP 122/74; PULSE 75; RESP 18; TEMP 36.9; O2SAT 95; BMI 31.9
--- NOTE | 2024-09-13 11:46 | A.OFFPC_ITS ---
Vital Signs 09/13/24 11:46 Height 6 ft Weight 235 lb BMI 31.9 BP 122/74 Blood Pressure Location Lt brachial Position Sitting Respiration 18 Pulse 75 Pulse Source Pulse Oximeter Temp 98.5 F Temp Source Oral Pulse Oximetry (%) 95 Oxygen Delivery Method Room Air Intake Visit Reasons: 3m follow up Intake Note: Pt is here today for 3 months follow up visit. Allergies Sulfa (Sulfonamide Antibiotics) [SULFA (SULFONAMIDE ANTIBIOTICS)] Allergy (Intermediate, Verified 09/13/24 11:47) WHOLE FACE SWELLED UP, hives, hives tizanidine Adverse Reaction (Unknown, Verified 09/13/24 11:47) dizziness Medication List - Last Reconciled 09/13/24 by Ilsa Nelson MD albuterol sulfate 90 mcg/actuation 1 inh inhalation QID PRN amlodipine 2.5 mg PO DAILY atenolol 100 mg PO DAILY blood sugar diagnostic tid testing cholecalciferol (vitamin D3) 1,250 mcg PO QWEEK finasteride 5 mg PO DAILY gabapentin 300 mg PO TID 90 days lancets tid testing levothyroxine 112 mcg PO QAM 90 days losartan 100 mg PO DAILY 90 days metformin ER 500 mg PO DAILY montelukast 10 mg PO DAILY omeprazole 20 mg PO DAILY 90 days phytonadione (vitamin K1) 200 mcg (2 x 100 mcg) PO DAILY pioglitazone 30 mg PO DAILY simvastatin 20 mg PO BEDTIME venlafaxine ER 225 mg (3 x 75 mg) PO DAILY Tobacco use date assessed: 06/16/24 Dental Screening Dental Screen Date: 06/16/24 HPI 3m follow up HPI Details Patient presents for the follow-up on hypertension hyperlipidemia type 2 diabetes hypothyroidism stable on current medications. Patient had a sleep study consistent with moderate to severe obstructive sleep apnea and is interested in starting CPAP [facility] Medical History (Updated 09/13/24 @ 13:13 by Ilsa Nelson MD) Hearing loss CASTILLO (dyspnea on exertion) Sleep apnea Alcoholic liver disease Cataract Obesity (BMI 30-39.9) Dyslipidemia Hypertension Post-surgical hypothyroidism Diabetes type 2, controlled Surgical History Hx of colonoscopy Hx of total thyroidectomy Family History Mother Lung cancer Father No problems noted. Brother Mental health disorder Sister Lung cancer Sister No problems noted. Son No problems noted. Social History Household Members: Family Housing: House Alcohol intake: current Patient Tobacco Use Status: Former Tobacco user Years Smoked: 34 years ago e-Cigarette/Vaping Use: Never Used Second Hand Smoke Exposure: No service: No Current occupational status: retired Cognitive needs: No Hearing needs: No Vision needs: Yes Questionnaire PHQ-9 Over the last 2 weeks, how often have you been bothered by any of the following problems? 1. Little interest or pleasure in doing things: not at all 2. Feeling down, depressed, or hopeless: not at all 5. Poor appetite or overeating: not at all 6. Feeling bad about yourself - or that you are a failure or have let yourself or your family down: not at all 7. Trouble concentrating on things, such as reading the newspaper or watching television: not at all 8. Moving or speaking so slowly that other people could have noticed. Or the opposite - being so fidgety or restless that you have been moving around a lot more than usual: not at all 9. Thoughts that you would be better off or of hurting yourself in some way: not at all Depression Screening Interpretation: Negative Depression Screening Done: Yes 60808 - PHQ-9 Billing: Yes Source: Developed by Drs. José Miguel Bucio, Marysol Echavarria, Elian Cardozo and colleagues, with an educational jaron from [employer]. Thrive Questionnaire Date Thrive assessed: 06/10/24 I am a: Patient What is your living situation today?: I have a steady place to live Within the past 12 months, did the food you bought not last and you didn't have the money to get more?: Never true Within the past 12 months, did you worry whether your food would run out before you got money to buy more?: Never true Do you have trouble paying for medicines?: No Do you have trouble getting transportation to medical appointments?: No Do you have trouble paying your heating and electricity bill?: No Do you have trouble taking care of your child, family member or friend?: No Do you have trouble with day-to-day activities such as bathing, preparing meals, shopping, managing finances, etc.?: No Are you currently unemployed and looking for a job?: No Are you interested in more education?: No Please select the resources that you would like help with: None Currently or been in a relationship where the following occur: No concerns reported THRIVE Score: 0 DANIELA-7 AMB Questionnaire DANIELA-7 Date DANIELA - 7 assessed: 04/27/23 Source: Developed by Drs. José Miguel Bucio, Marysol Echavarria, Elian Cardozo and colleagues, with an educational jaron from [employer]. Review of Systems Const All systems reviewed & are unremarkable except as noted in HPI and below ENT Reports no additional complaints Resp Reports no additional complaints GI Reports no additional complaints Reports no additional complaints Physical exam (Primary Care) Vital Signs: Last Vital Signs Temp 98.5 F 09/13/24 11:46 Pulse 75 09/13/24 11:46 Resp 18 09/13/24 11:46 BP 122/74 09/13/24 11:46 Pulse Ox 95 09/13/24 11:46 Oxygen Delivery Method Room Air 09/13/24 11:46 BMI result Body Mass Index 31.9 Tobacco/Smoking Status: Tobacco use Status Tobacco use date assessed 06/16/24 09/13/24 11:46 Patient Tobacco Use Status Former Tobacco user 09/13/24 11:46 e-Cigarette/Vaping Use Never Used 09/13/24 11:46 Depression Screening Interpretation: Negative Thrive Assessment: Date of Thrive Assessment Date Thrive assessed 06/10/24 09/13/24 11:46 Currently or been in a relationship where the following occur: No concerns reported Const General: no acute distress HENMT Head: Yes normal to inspection Face and sinus: Yes normal facial exam Neck Neck: Yes supple Resp Effort & Inspection: normal respiratory effort Auscultation: clear to auscultation bilaterally Cardio Rhythm: regular rhythm Heart sounds: S1 normal heart sound present and S2 normal heart sound present GI Inspection: Yes normal to inspection Palpation (GI): Soft to palpation Percussion: Yes normal to percussion Auscultation: normal bowel sounds Coding Level of Care Code Est Pt Level 4 (34875) Diagnoses Iron deficiency anemia secondary to inadequate dietary iron intake D50.8 Anemia type: iron deficiency Iron deficiency anemia type: inadequate dietary iron intake Diabetes type 2, controlled E11.9 Hearing loss H91.90 Sleep apnea G47.30 Hypertension I10 Additional Codes PHQ-9 - 59625 - PHQ-9 Billing: Yes ([id number]) Assessment & Plan Assessment & Plan (1) Anemia: Comment: Iron def, on Iron infusion since 2019 , intolerant to oral iron supplement Code(s): D64.9 - Anemia, unspecified Category: Medical Qualifiers: Anemia type: iron deficiency Iron deficiency anemia type: inadequate dietary iron intake Qualified Code(s): D50.8 - Other iron deficiency anemias Plan: Follow-up with Hematology (2) Diabetes type 2, controlled: Comment: Patient is established with Dr. Evans Code(s): E11.9 - Type 2 diabetes mellitus without complications Category: Medical Plan: A1c is 5.9, continue ADA diet regular exercise current medications (3) Hearing loss: Comment: Referred to speech and hearing Code(s): H91.90 - Unspecified hearing loss, unspecified ear Category: Medical Plan: Referred for hearing test (4) Sleep apnea: Comment: Moderate to severe obstructive sleep apnea, start Cpap 08/2024 Code(s): G47.30 - Sleep apnea, unspecified Category: Medical Plan: Start CPAP (5) Hypertension: Code(s): I10 - Essential (primary) hypertension Category: Medical Plan: Continue current medications Orders: Orders Comprehensive [place]. Panel Fast 3 Months Ilsa Nelson MD E11.9 - Type 2 diabetes mellitus without complications, E66.9 - Obesity, unspecified, E78.5 - Hyperlipidemia, unspecified, I10 - Essential (primary) hypertension TSH reflex Free T4 3 Months Ilsa Nelson MD E11.9 - Type 2 diabetes mellitus without complications, E66.9 - Obesity, unspecified, E78.5 - Hyperlipidemia, unspecified, I10 - Essential (primary) hypertension Microalbumin, Random (w Creat) 3 Months Ilsa Nelson MD E11.9 - Type 2 diabetes mellitus without complications, E66.9 - Obesity, unspecified, E78.5 - Hyperlipidemia, unspecified, I10 - Essential (primary) hypertension Hemoglobin A1c 3 Months Ilsa Nelson MD E11.9 - Type 2 diabetes mellitus without complications, E66.9 - Obesity, unspecified, E78.5 - Hyperlipidemia, unspecified, I10 - Essential (primary) hypertension Lipid Panel 3 Months Ilsa Nelson MD E11.9 - Type 2 diabetes mellitus without complications, E66.9 - Obesity, unspecified, E78.5 - Hyperlipidemia, unspecified, I10 - Essential (primary) hypertension Referrals Speech and Hearing Referral Ilsa Nelson MD H91.90 - Unspecified hearing loss, unspecified ear Medications: New CPAP (CPAP Machine/Device) auto pap 6-20 cm H20 1 ea 0RF Ilsa Nelson MD G47.33 - Obstructive sleep apnea (adult) (pediatric) Changed From metformin ER 500 mg PO BID 90 days 180 tabs 1RF To metformin ER 500 mg PO DAILY Ryland Lovell, GRABIEL-BC
== END 2024-09-13 12:37 | disposition home or self-care (01) ==
LOC: HO.HMCC 11:44
PROVIDERS: PCP Internal Medicine; Visit Provider Internal Medicine
DX: D50.8 Other iron deficiency anemias (principal); E11.9 Type 2 diabetes mellitus without complications; H91.90 Unspecified hearing loss, unspecified ear; G47.30 Sleep apnea, unspecified; I10 Essential (primary) hypertension

== ENCOUNTER → 2024-09-13 11:43 | Outpatient (BNVA) | payer MEDICARE, SELFPAY | PROVIDERS: PCP Internal Medicine; Visit Provider Internal Medicine | DX: I10 Essential (primary) hypertension (principal); E78.5 Hyperlipidemia, unspecified; E11.9 Type 2 diabetes mellitus without complications; E03.9 Hypothyroidism, unspecified; G47.33 Obstructive sleep apnea (adult) (pediatric); D50.8 Other iron deficiency anemias; H91.90 Unspecified hearing loss, unspecified ear; G47.30 Sleep apnea, unspecified; Z99.89 Dependence on other enabling machines and devices | CPT/HCPCS: 96127; 99212 ==

== ENCOUNTER 2024-10-11 15:05 | Outpatient (REF) | payer MEDICARE, SELFPAY ==
--- OUTSIDE RECORDS SUMMARY | 2024-10-11 18:19 | XMS_ITS | Patient Health Record ---
Author Organization [facility] Address [address] [facility] [place] [place] [address] Care Team Providers Care Paper Coater Name Role Phone Braden Mcintosh MD Primary Care Provider Unava ilable Black, Mariah Unavailable [phone] Allergies Allergen (clinical drug ingredient) Drug/Non Drug Allergy documented on EMR Reaction Allergy Type Onset Date Status sulfa Unknown Drug Allergy Active Reason For Referral No Information Medications Medication SIG (Take, Route, Frequency, Duration) Notes Start Date End Date Status Diovan Active Metformin & Diet Manage Prod Active Venlafaxine HCl Acti ve Atenolol Active Physical Therapy . . . 2-3x/week for 3- 4 weeks 11/03/2014 Active Work Note . . . out or worl 07/11 due to injection therapy and no working longer than 8 hr shifts 07/12/2015 Active hydroCHLOROthiazide Active Simvastatin Active Immunizations Vaccine Route Administration Date Status Comme nts Influenza Unknown 12/27/2014 Administered Social History Tobacco use other than smoking: Question Answer Notes Are you an other tobacco user? No Problems Problem Type SNOMED Code ICD Code Onset Dates Problem Status W/U Status Risk Notes Problem Type II diabetes mellitus without complication (805962166) Type 2 diabetes mellitus without complications (E11.9) Active confirmed Plan Of Treatment Pending Test Test Name Order Date [id number]-Dezmpvhy Plate 11/09/2015 [id number] Plate 01/04/2016 [id number] Plate 02/13/201699897,[id number] TENDON SHEATH/LIGAMENT 0 01/04/2016,[id number] TENDON SHEATH/LIGAMENT 0 11/03/2014 74832, J0702- Neuroma/Injection 05/10/19 16 76881, J0702- Neuroma/Injection 06/14/19 16 38890, J0702- Neuroma/Injection 07/12/19 16 Insurance Providers Payer Name Payer Address Payer Phone Subscriber Number Group Number Insured Name Patient Relationship to Insured Coverage Start Date Coverage End Date [facility] [address] [place] [address] [id number] Arsalan Zuniga Self - patient is the insured Medical (General) History Medical History History ICD Code Cholesterol Depression Diabetic High blood pressure Measles Mumps Chicken pox
== END 2024-10-11 15:06 | disposition home or self-care (01) ==
LOC: HO.SH 15:05
PROVIDERS: Visit Provider Internal Medicine
DX: Z01.118 Encounter for examination of ears and hearing with other abnormal findings (principal); H90.3 Sensorineural hearing loss, bilateral; H93.11 Tinnitus, right ear
CPT/HCPCS: 92557; 92567

== ENCOUNTER 2025-01-06 10:43 | Outpatient (REF) | payer MEDICARE, SELFPAY ==
--- OUTSIDE RECORDS SUMMARY | 2025-01-06 11:21 | XMS_ITS | Clinical Summary ---
Author Organization [facility] Address [address] [place] [address] Phone Care Team Providers Care Jewel Gauger Name Role Phone Jill Renteria MD Unavailable [phone] Ilsa Nelson MD Primary Care Provider [phone] Allergies Active Allergy Reactions Criticality Noted Date Comments Sulfa (Sulfonamide Antibiotics) Swelling 07/2022 face Medications lancets 28 gauge Misc 1 each by Miscellaneous route 3 (three) times a day before meals. LANCETS THAT GO WITH THE FREESTYLE LITE METER. 300 each 1 3 Active losartan (COZAAR) 100 MG tablet Take 100 mg by mouth daily. 3 Active atenolol (TENORMIN) 100 MG tablet Take 100 mg by mouth daily. 3 Active montelukast (SINGULAIR) 10 mg tablet Take 10 mg by mouth daily. 3 Active omeprazole (PRILOSEC) 20 MG capsule Take by mouth daily. 3 Active pioglitazone (ACTOS) 30 MG tablet Take 30 mg by mouth daily. 3 Active finasteride (PROSCAR) 5 mg tablet Take 5 mg by mouth daily. 3 Active ibuprofen (ADVIL,MOTRIN) 800 MG tablet take 1 tablet by mouth 3 times a day as needed for pain 3 Active atorvastatin (LIPITOR) 80 MG tablet Take 80 mg by mouth daily. 3 Active gabapentin (NEURONTIN) 300 MG capsule Take 300 mg by mouth 3 (three) times a day. 3 Active venlafaxine (EFFEXOR-XR) 75 MG 24 hr capsule TAKE THREE CAPSULES BY MOUTH EVERY DAY 3 Active metFORMIN (GLUCOPHAGE-XR ) 500 MG 24 hr tablet Take 500 mg by mouth daily. 3 Active amLODIPine (NORVASC) 2.5 MG tablet Take 2.5 mg by mouth daily. 3 Active albuterol 90 mcg/actuation inhaler INHALE ONE PUFF BY MOUTH FOUR TIMES A DAY NEEDED FOR SHORTNESS OF BREATH 3 Active levothyroxine (SYNTHROID, LEVOTHROID) 112 MCG tablet Take 112 mcg by mouth every morning. 4 Active cholecalcifero l (VITAMIN D3) 5,000 unit capsule Take 1 capsule by mouth once a week. 5 Active FREESTYLE LITE Strp stripsIndicati ons:Type 2 diabetes mellitus with peripheral neuropathy To monitor glucose once daily 100 strip 3 5 Active Active Problems Problem Noted Date Diagnosed [...] hematology. 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 Immunizations Immunization Administration Dates Next Due Influenza, whole 06/08/2017 [...] Recorded Sex Assigned at Not on file Legal Sex Male 9:53 PM EDT Gender Identity Not on file Sexual Orientation Not on file Last Filed Vital Signs Vital Sign Reading Time Taken Comments Blood Pressure 126/68 07/05/2024 11:11 AM EDT Pulse 70 07/05/2024 11:11 AM EDT Temperature 36.3 C (97.3 F) 07/05/2024 11:11 AM EDT Respiratory Rate 16 07/05/2024 11:11 AM EDT [...] Description 01/24/2025 11:40 AM EDT Office Visit [facility] Endocrinology [address] [id number] Teresa Don MD [address] [place] [phone] [email or web address] Health Maintenance Due Date Last Done Comments [...] EYE EXAM 08/21/2022 HEMOGLOBIN A1C 02/21/2023 08/21/2022 POTASSIUM LEVEL 06/30/2024 07/01/2023, 10/19, 08/21/2022 INFLUENZA VACCINE (#1) 2024 06/08/2017 COVID-19 VACCINE ( - season) 2024 BLOOD PRESSURE 01/05/2025 07/05/2024 CREATININE LEVEL 06/16/2025 [...] age to complete this topic MENINGOCOCCAL VACCINES (B) Aged Out N o longer eligible based on patient's age to complete this topic Medical Devices Not on file Procedures Procedure Name Priority Date/Time Associated Diagnosis Comments TSH Routine 06/16/2024 9:46 AM EST COMPREHENSIVE METABOLIC PANEL Routine 06/16/2024 9:46 AM EST BASIC METABOLIC PANEL Routine 07/01/2023 3:07 PM EDT Type 2 diabetes mellitus with peripheral neuropathy HEMOGLOBIN A1C Routine 08/21/2022 12:48 PM EDT Type 2 diabetes mellitus with peripheral neuropathy from Last 3 Months or Most Recently Relevant to Health Maintenance Results * Comprehensive metabolic panel (06/16/2024 9:46 AM EST) Result [facility] Historical Provider LAB BLOOD ORDERABLES Osiris l Result * TSH (06/16/2024 9:46 AM EST) Historical Provider LAB BLOOD ORDERABLES Osiris l Result * Basic metabolic panel (07/01/2023 3:07 PM EDT) Blood Result [facility] Teresa Don MD LAB BLOOD ORDERABLES F inal Result [address] [id number] * Hemoglobin A1c (08/21/2022 12:48 PM EDT) HEMOGLOBIN A1C 5.5 4.3 - 5.8 % [facility] Blood 08/21/2022 12:4 8 PM EDT 08/21/2022 12:50 PM EDT Result [facility] Teresa Don MD LAB BLOOD ORDERABLES F inal Result [address] [id number] from Last 3 Months or Most Recently Relevant to Health Maintenance Insurance [place] MEDICARE HMO BLUE REPLACEMENT MEDICARE PART A & B MEDICARE HMO BLUE REPLACEMENT MEDICARE PART A & B Member Subscriber Plan / Payer (Ef fective 2021-Present) Name:Arsalan Zuniga Member ID:[id number] Relation to Subscriber:Self Name:Arsalan Zuniga Subscriber ID:[id number] Payer ID:[id number] Group ID:Not on file Type:Medicare Address: [employer] [address] [place] [id number] [place] [address] MEDICARE HMO BLUE REPLACEMENT MEDICARE PART A & B [place] MED[place] H[place] BLUE REPLACEMENT MEDICARE PART A & B [facility] MEDICARE HMO BLUE REPLACEMENT MEDICARE PART A & B [facility] MEDICARE HMO BLUE REPLACEMENT MEDICARE PART A & B Care Teams Jewel Gauger Relationship Specialty Start Date End Date Ilsa Nelson MD [address] [place] [address] PCP - General Internal Medicine 07/05/24 Jill Renteria MD [address] [place] [address] [email or web address] Hematology and Oncology 08/24/22 Additional Source Comments The information contained in this document represents components of the legal health record. It is not the complete legal health record.[facility]
[2025-01-06 13:54] LABS: Hemoglobin A1C 130.9561 umol/L; Total Hemoglobin (HGBA1C) 3319.7994 umol/L
[2025-01-06 13:59] LABS: Alanine Aminotransferase 52 U/L (0-40); Albumin Level 4.6 g/dL (3.5-5.0); Alkaline Phosphatase 81 U/L (39-117); Anion Gap 13 (12-20); Aspartate Amino Transferase 62 U/L (5-37); Blood Urea Nitrogen 13 mg/dL (9-16); Calcium 9.8 mg/dL (8.4-10.2); Carbon Dioxide 29 mmol/L (22-29); Chloride 100 mmol/L (96-108); Cholesterol 218 mg/dL (<200); Estimated Glomerular Filt Rate > 60; HDL Cholesterol 91 mg/dL (>40); Potassium 4.6 mmol/L (3.3-5.1); Sodium 137 mmol/L (135-145); Total Protein 7.7 g/dL (6.5-8.0); Triglycerides 74 mg/dL (<150)
[2025-01-06 14:16] LABS: Microalbum/Creatinine Ratio Ur 24.1 ug/mg cr (<30)
== END 2025-01-06 10:44 | disposition home or self-care (01) ==
LOC: HO.HMGCLDS 10:43
PROVIDERS: PCP Internal Medicine; Visit Provider Internal Medicine
DX: E11.9 Type 2 diabetes mellitus without complications (principal); I10 Essential (primary) hypertension; E78.5 Hyperlipidemia, unspecified; E66.9 Obesity, unspecified
CPT/HCPCS: 36415; 80053; 80061; 82043; 82570; 83036; 84443

== ENCOUNTER 2025-01-11 13:00 | Outpatient (RCR) | payer MEDICARE, SELFPAY ==
[2024-10-31 11:07] VITALS: BP 155/89; PULSE 75; RESP 16; TEMP 36.8; O2SAT 97
[2024-11-07 10:58] VITALS: BP 158/81; PULSE 79; RESP 16; TEMP 36.6; O2SAT 99
[2024-12-22 14:53] VITALS: BP 136/76; PULSE 82; RESP 16; TEMP 36.6; O2SAT 96
[2024-12-29 14:52] VITALS: BP 120/72; PULSE 78; RESP 18; TEMP 36.6
[2025-01-05 12:42] VITALS: BP 158/83; PULSE 78; RESP 18; TEMP 36.6
[2025-01-11 12:48] VITALS: BP 147/70; PULSE 67; RESP 18; TEMP 36.6
== END 2025-01-11 13:22 | disposition home or self-care (01) ==
LOC: HO.INF 13:00
PROVIDERS: Visit Provider Internal Medicine
DX: D64.9 Anemia, unspecified (principal)
CPT/HCPCS: 96365; J1756

== ENCOUNTER 2025-01-12 11:25 | Outpatient (AMB) | payer MEDICARE, SELFPAY ==
--- NOTE | 2025-01-12 11:29 | A.OFFPC_ITS ---
Vital Signs 01/12/25 11:30 Height 6 ft Weight 232 lb BMI 31.5 BP 122/70 Blood Pressure Location Lt brachial Position Sitting Respiration 18 Pulse 74 Pulse Source Pulse Oximeter Temp 98.4 F Temp Source Oral Pulse Oximetry (%) 97 Oxygen Delivery Method Room Air Intake Visit Reasons: 3m follow up Intake Note: Pt is here today for 3 months follow up visit. Allergies Sulfa (Sulfonamide Antibiotics) (SULFA (SULFONAMIDE ANTIBIOTICS)) Allergy (Intermediate, Verified 01/12/25 11:30) WHOLE FACE SWELLED UP, hives, hives tizanidine Adverse Reaction (Unknown, Verified 01/12/25 11:30) dizziness Medication List - Last Reconciled 01/12/25 by Ilsa Nelson MD albuterol sulfate 90 mcg/actuation 1 inh inhalation QID PRN amlodipine 2.5 mg PO DAILY atenolol 100 mg PO DAILY blood sugar diagnostic tid testing cholecalciferol (vitamin D3) 1,250 mcg PO QWEEK CPAP (CPAP Machine/Device) auto pap 6-20 cm H20 finasteride 5 mg PO DAILY gabapentin 300 mg PO TID 90 days lancets tid testing levothyroxine 112 mcg PO QAM 90 days losartan 100 mg PO DAILY 90 days metformin ER 500 mg PO DAILY montelukast 10 mg PO DAILY omeprazole 20 mg PO DAILY 90 days phytonadione (vitamin K1) 200 mcg (2 x 100 mcg) PO DAILY pioglitazone 30 mg PO DAILY rosuvastatin (Crestor) 10 mg PO DAILY venlafaxine ER 225 mg (3 x 75 mg) PO DAILY Tobacco use date assessed: 01/12/25 Fall risk assessment: 1 Fall in past year Last assessed Fall Risk: 01/12/25 Dental Screening Dental Screen Date: 06/16/24 HPI 3m follow up HPI Details Patient presents for the follow-up of hypertension type 2 diabetes hyperlipidemia chronic anxiety hypothyroidism stable on current medications. [facility] Medical History (Updated 01/12/25 @ 18:37 by Ilsa Nelson MD) DISH (diffuse idiopathic skeletal hyperostosis) Anemia Hearing loss CASTILLO (dyspnea on exertion) Sleep apnea Alcoholic liver disease Cataract Obesity (BMI 30-39.9) Dyslipidemia Hypertension Post-surgical hypothyroidism Diabetes type 2, controlled Surgical History Hx of colonoscopy Hx of total thyroidectomy Family History Mother Lung cancer Father No problems noted. Brother Mental health disorder Sister Lung cancer Sister No problems noted. Son No problems noted. Social History Household Members: Family Housing: House Alcohol intake: current Patient Tobacco Use Status: Former Tobacco user Years Smoked: 34 years ago e-Cigarette/Vaping Use: Never Used Second Hand Smoke Exposure: No service: No Current occupational status: retired Cognitive needs: No Hearing needs: No Vision needs: Yes Questionnaire PHQ-9 Over the last 2 weeks, how often have you been bothered by any of the following problems? 1. Little interest or pleasure in doing things: not at all 2. Feeling down, depressed, or hopeless: not at all 3. Trouble falling or staying asleep, or sleeping too much: not at all 4. Feeling tired or having little energy: not at all 5. Poor appetite or overeating: not at all 6. Feeling bad about yourself - or that you are a failure or have let yourself or your family down: not at all 7. Trouble concentrating on things, such as reading the newspaper or watching television: not at all 8. Moving or speaking so slowly that other people could have noticed. Or the opposite - being so fidgety or restless that you have been moving around a lot more than usual: not at all 9. Thoughts that you would be better off or of hurting yourself in some way: not at all Total score: 0 Depression Screening Interpretation: Negative Depression Screening Done: Yes Source: Developed by Drs. José Miguel Bucio, Marysol Echavarria, Elian Cardozo and colleagues, with an educational jaron from [employer]. Thrive Questionnaire Date Thrive assessed: 06/10/24 I am a: Patient What is your living situation today?: I have a steady place to live Within the past 12 months, did the food you bought not last and you didn't have the money to get more?: Never true Within the past 12 months, did you worry whether your food would run out before you got money to buy more?: Never true Do you have trouble paying for medicines?: No Do you have trouble getting transportation to medical appointments?: No Do you have trouble paying your heating and electricity bill?: No Do you have trouble taking care of your child, family member or friend?: No Do you have trouble with day-to-day activities such as bathing, preparing meals, shopping, managing finances, etc.?: No Are you currently unemployed and looking for a job?: No Are you interested in more education?: No Please select the resources that you would like help with: None Currently or been in a relationship where the following occur: No concerns reported THRIVE Score: 0 DANIELA-7 AMB Questionnaire DANIELA-7 Date DANIELA - 7 assessed: 01/12/25 Feeling nervous, anxious, or on edge: 0 = Not at all Not being able to stop or control worryin = Not at all Worrying too much about different things: 0 = Not at all Trouble relaxin = Not at all Being so restless that it is hard to sit still: 0 = Not at all Becoming easily annoyed or irritable: 0 = Not at all Feeling afraid as if something awful might happen: 0 = Not at all Total DANIELA-7 score (0-4 normal; 5-9 mild; 10-14 moderate; 15-21 severe): 0 Source: Developed by Drs. José Miguel Bucio, Marysol Echavarria, Elian Cardozo and colleagues, with an educational jaron from [employer]. Review of Systems Const All systems reviewed & are unremarkable except as noted in HPI and below Eyes Reports no additional complaints ENT Reports no additional complaints Card Reports no additional complaints Resp Reports no additional complaints GI Reports no additional complaints Reports no additional complaints Physical exam (Primary Care) Vital Signs: Last Vital Signs Temp 98.4 F 01/12/25 11:30 Pulse 74 01/12/25 11:30 Resp 18 01/12/25 11:30 BP 122/70 01/12/25 11:30 Pulse Ox 97 01/12/25 11:30 Oxygen Delivery Method Room Air 01/12/25 11:30 BMI result Body Mass Index 31.5 Tobacco/Smoking Status: Tobacco use Status Tobacco use date assessed 01/12/25 01/12/25 11:31 Patient Tobacco Use Status Former Tobacco user 01/12/25 11:30 e-Cigarette/Vaping Use Never Used 01/12/25 11:30 PHQ-9: PHQ-9 Score PHQ-9: Total score 0 01/12/25 13:39 Depression Screening Interpretation: Negative Thrive Assessment: Date of Thrive Assessment Date Thrive assessed 06/10/24 01/12/25 11:30 Currently or been in a relationship where the following occur: No concerns reported Const General: no acute distress HENMT Face and sinus: Yes normal facial exam Throat: Yes posterior oropharynx normal Neck Neck: Yes supple Resp Effort & Inspection: normal respiratory effort Auscultation: clear to auscultation bilaterally Cardio Rhythm: regular rhythm Heart sounds: S1 normal heart sound present and S2 normal heart sound present GI Inspection: Yes normal to inspection Palpation (GI): Soft to palpation Percussion: Yes normal to percussion Auscultation: normal bowel sounds Coding Level of Care Code Est Pt Level 4 (72394) Diagnoses Diabetes type 2, controlled E11.9 Alcoholic liver disease K70.9 Hypertension I10 Dyslipidemia E78.5 Obesity (BMI 30-39.9) E66.9 Hx of colonoscopy Z98.890 Iron deficiency anemia secondary to inadequate dietary iron intake D50.8 Anemia type: iron deficiency Iron deficiency anemia type: inadequate dietary iron intake Assessment & Plan Assessment & Plan (1) Diabetes type 2, controlled: Comment: Patient is established with Dr. Evans Code(s): E11.9 - Type 2 diabetes mellitus without complications Category: Medical Plan: A1c is 5.8 in 10/2024, continue ADA diet increase physical activity weight loss discussed with the patient. 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 Liver elastography 06/2024 chronic advanced liver disease Code(s): K70.9 - Alcoholic liver disease, unspecified Category: Medical Plan: Patient was advised to abstain from alcohol intake but he continues to drink at least 2 alcoholic drinks everyday (3) Hypertension: Code(s): I10 - Essential (primary) hypertension Category: Medical Plan: Continue current medications (4) Dyslipidemia: Comment: Atorvastatin contraindicated due to his chronic liver disease 20 mg of simvastatin not effective Code(s): E78.5 - Hyperlipidemia, unspecified Category: Medical Plan: Change simvastatin to Crestor, LDL is above 100, check lipid (5) Obesity (BMI 30-39.9): Code(s): E66.9 - Obesity, unspecified Category: Medical Plan: Decreasing caloric intake increasing physical activity discussed with the patient (6) Hx of colonoscopy: Comment: 2019, negative, but hx of TA on previous colonoscopy, recheck in 5 years was recommended Code(s): Z98.890 - Other specified postprocedural states Category: Surgical Plan: Patient is due for repeat colonoscopy any EGD is recommended because of his chronic iron deficiency anemia. Patient is established with [facility] and will call to follow-up on appointment (7) Anemia: Comment: Iron def, on Iron infusion since 2019 , intolerant to oral iron supplement Code(s): D64.9 - Anemia, unspecified Category: Medical Qualifiers: Anemia type: iron deficiency Iron deficiency anemia type: inadequate dietary iron intake Qualified Code(s): D50.8 - Other iron deficiency anemias Plan: Established with Hematology getting chronically iron infusion Orders: Orders Comprehensive [place]. Panel Fast 6 Months E11.9 - Type 2 diabetes mellitus without complications Hemoglobin A1c 6 Months E11.9 - Type 2 diabetes mellitus without complications PSA,Total (Free>4and<10) 6 Months E11.9 - Type 2 diabetes mellitus without complications Microalbumin, Random (w Creat) 6 Months E11.9 - Type 2 diabetes mellitus without complications Lipid Panel 6 Months E11.9 - Type 2 diabetes mellitus without complications Medications: New rosuvastatin (Crestor) 10 mg PO DAILY 90 tabs 1RF Discontinued simvastatin Discontinued Reason: Doctor's Order 20 mg PO BEDTIME 90 tabs 3RF
[2025-01-12 11:30] VITALS: BP 122/70; PULSE 74; RESP 18; TEMP 36.9; O2SAT 97; BMI 31.5
== END 2025-01-12 13:39 | disposition home or self-care (01) ==
LOC: HO.HMCC 11:26
PROVIDERS: PCP Internal Medicine; Visit Provider Internal Medicine
DX: E11.69 Type 2 diabetes mellitus with other specified complication (principal); K70.9 Alcoholic liver disease, unspecified; E66.9 Obesity, unspecified; Z68.31 Body mass index [BMI] 31.0-31.9, adult; I10 Essential (primary) hypertension; E78.5 Hyperlipidemia, unspecified; Z98.890 Other specified postprocedural states; D50.8 Other iron deficiency anemias

== ENCOUNTER → 2025-01-12 11:25 | Outpatient (BNVA) | payer MEDICARE, SELFPAY | PROVIDERS: PCP Internal Medicine; Visit Provider Internal Medicine | DX: E11.9 Type 2 diabetes mellitus without complications (principal); K70.9 Alcoholic liver disease, unspecified; I10 Essential (primary) hypertension; E78.5 Hyperlipidemia, unspecified; E66.9 Obesity, unspecified; Z68.31 Body mass index [BMI] 31.0-31.9, adult; D50.8 Other iron deficiency anemias; Z13.31 Encounter for screening for depression; Z13.39 Encounter for screening examination for other mental health and behavioral disorders | CPT/HCPCS: 96127; 99212 ==

== ENCOUNTER 2025-02-23 08:48 | Day surgery (SDC) | payer MEDICARE, SELFPAY ==
--- NOTE | 2025-02-21 12:08 | P.CONAN_ITS ---
HPI - Anesthesia Eval Consult details Narrative: 69yo M for Upper Endoscopy and Colonoscopy Daily ETOH 10/2024 Medically optimized for ankle surgery by [facility] preop clinic [facility] Active Problems Active Problems: All Active Problems Obstructive sleep apnea (Acute) Hearing loss (Acute) Hx of colonoscopy (Acute) Alcoholic liver disease (Acute) Sleep apnea (Acute) CASTILLO (dyspnea on exertion) (Acute) ETOH abuse (Acute) Knee pain, bilateral (Acute) DISH (diffuse idiopathic skeletal hyperostosis) (Acute) Anemia (Chronic) Elevated liver enzymes (Acute) Physical exam (Acute) Obesity (BMI 30-39.9) (Acute) Dyslipidemia (Acute) Hypertension (Acute) Post-surgical hypothyroidism (Acute) Diabetes type 2, controlled (Acute) Past Medical History Medical History (Updated 01/12/25 @ 18:37 by Ilsa Nelson MD) DISH (diffuse idiopathic skeletal hyperostosis) Anemia Hearing loss CASTILLO (dyspnea on exertion) Sleep apnea Alcoholic liver disease Cataract Obesity (BMI 30-39.9) Dyslipidemia Hypertension Post-surgical hypothyroidism Diabetes type 2, controlled Family History Family History Mother Lung cancer Father No problems noted. Brother Mental health disorder Sister Lung cancer Sister No problems noted. Son No problems noted. Surgical History Surgical History Hx of colonoscopy Hx of total thyroidectomy Social History Social History Household Members: Family Housing: House Alcohol intake: current Patient Tobacco Use Status: Former Tobacco user Years Smoked: 34 years ago e-Cigarette/Vaping Use: Never Used Second Hand Smoke Exposure: No service: No Current occupational status: retired Cognitive needs: No Hearing needs: No Vision needs: Yes Meds Allergies Allergy/AdvReac Type Severity Reaction Status Date / Time Sulfa (Sulfonamide Allergy Intermediate WHOLE FACE Verified 01/12/25 11:30 Antibiotics) (SULFA SWELLED (SULFONAMIDE ANTIBIOTICS)) UP, hives, hives tizanidine AdvReac Unknown dizziness Verified 01/12/25 11:30 Home Medications ?Medication ?Instructions ?Recorded ?Confirmed ?Last Taken ?Type lancets 28 gauge #100 ea 05/29/21 01/12/25 Un known History metformin 500 mg tablet,extended 500 mg PO DAILY 09/1301/12/25 Unknown History release 24 hr Exam Pertinent Lab Results Pertinent Lab Results: Laboratory Tests 10/24/24 01/06/25 13:20 10:50 WBC 5.6 Hgb 12.2 L Hct 37.0 L Plt Count 194 Sodium 137 Potassium 4.6 Chloride 100 Carbon Dioxide 29 BUN 13 Creatinine 0.85 Narrative Narrative: ECHO 06/2024 Conclusions: - The left ventricular systolic function is normal. The calculated ejection fraction is 64% by biplane method. - No obvious valvular pathology seen on this study. Assessment and Plan Assessment Anesthesia Assessment: Chart Reviewed
[2025-02-21 15:09] VITALS: BMI 31.6
[2025-02-23 09:38] VITALS: BMI 31.2
[2025-02-23 09:58] LABS: Glucose, Whole Blood 126 mg/dL (60-115)
[2025-02-23 09:59] VITALS: BP 181/78; PULSE 107; RESP 15; TEMP 36.6; O2SAT 98
[2025-02-23] MEDS: Lactated Ringers 1,000 ML 100 ML IVCONT (09:59)
--- NOTE | 2025-02-23 10:53 | MHC.SHP ---
Pre-Procedural Eval Section A - 24 Hr Update-Section A only Date of Service: 02/23/25 Section B - Complete if H&P > 30 days Chief Complaint: screening,anemia Relevant Family History (Specify if Yes): No Relevant Social History: None Present Medications: see Short Stay Collaborative assessment Medical History: Significant History ( Cataract Nodular thyroid disease Cervical spine arthritis History of toxic multinodular goiter Obesity (BMI 30-39.9) Dyslipidemia Hypertension Post-surgical hypothyroidism Diabetes type 2, controlled) History of Previous Operations: Relevant previous surgery/procedure and date(s) ( Hx of total thyroidectomy) Allergies: Allergies Allergy/AdvReac Type Severity Reaction Status Date / Time Sulfa (Sulfonamide Allergy Intermediate WHOLE FACE Verified 01/12/25 11:30 Antibiotics) (SULFA SWELLED (SULFONAMIDE ANTIBIOTICS)) UP, hives, hives tizanidine AdvReac Unknown dizziness Verified 01/12/25 11:30 Review of Systems Sugical H&P ROS: Negative: Constitution, Cardiovascular, Respiratory, Neurological, Psychiatric, Hem-Onc, Allergic/Immunologic, Gastrointestinal, Genitourinary, Musculoskeletal, Integumentary, Endocrine and Eyes/Ears/Nose/Throat Exam Surgical H&P Exam: Normal: HEENT, Normal: Heart, Normal: Lungs, Normal: Extremities, Normal: Abdomen, Normal: Skin and Normal: Neurological Plan Diagnosis/Plan: Unchanged I have reviewed the history and physical and performed a pertinent physical examination on my patient. No changes have occurred unless specified. Time Spent With Patient Time: Total time managing care of this patient today ____ minutes.
--- NOTE | 2025-02-23 11:49 | P.OPN-COLO_ITS ---
Colonoscopy Operative Note Operative Note Date of Service: 02/23/25 Narrative: Operative Information Procedure Description: EGD, Colonoscopy Indication: anemia Anesthesia: MAC FLEXIBLE TRANSORAL UPPER GASTROINTESTINAL ENDOSCOPY AND COLONOSCOPY PROCEDURE NOTE UPPER ENDOSCOPY Consent: Indications for the procedure and potential complications of bleeding, perforation, reaction to medications and missed diagnosis were discussed with the patient and informed consent was obtained. Instrument: Olympus GIF H 190 J mid size upper endoscope Monitoring: Vital signs and clinical assessment, continuous EKG monitoring, Pulse oximetry, Carbon Dioxide monitoring and blood pressure monitoring were done throughout the procedure. Procedure: The patient was placed in the left lateral decubitis position and pre-procedure medications were administered and a bite block was placed. The endoscope was inserted into the mouth and advanced under direct vision to the third part of duodenum. A careful inspection was made as the upper endoscope was withdrawn including a retroflexed examination of the proximal stomach; Findings and interventions are described below. Findings: Larynx:normal Esophagus: GE junction at 37 cm, diaphragm hiatus at 40 cm, consistent with 3 cm sliding hiatal hernia, Stomach: Nodular and erythematous mucosa. Biopsies were obtained. Grade 2 flap valve on retroflexed examination of the cardia. 10 mm sessile polyp in the cardia area, removed with cold snare and clip applied with nex powder Duodenum: Normal bulb and descending duodenum, bx taken Intervention: Biopsies as noted above, cold snare, clip COLONOSCOPY Instrument: Olympus variable stiffness pediatric scope 190L Colonoscopy Monitoring: Vital signs and clinical assessment, continuous EKG monitoring, Pulse oximetry, Carbon Dioxide monitoring and blood pressure monitoring were done throughout the procedure. Colon withdrawal time was 14 minutes. Procedure: The patient was placed in the left lateral decubitis position and pre-procedure medications were administered. After a digital rectal examination of the ano-rectum, the video colonoscope was inserted into the rectum and advanced through the colon to the cecum/TI. The colonoscope was slowly withdrawn in a retrograde panoramic fashion and the colon mucosa was carefully examined including a retroflexed view of the rectum. Findings and interventions are described below. Procedure Difficulty:moderate- pressure applied Findings: Terminal Ileum-not intubated Cecum:normal Ascending Colon: x 2 sessile polyps 7-9 mm removed with cold snare, x 1 sessile polyp 5-6 mm removed with cold forceps Transverse Colon - x 1 sessile polyp 5-7 mm removed with cold forceps Descending Colon:normal Sigmoid Colon: mild diverticulosis, x 1 sessile polyp 7-9 mm removed with cold snare Rectum: Retroflexion with small internal hemorrhoids, grade I Anorectum - normal Colon preparation: [place] Bowel Preparation Scale Right colon; 1-2 Transverse colon: 2- Left colon; 1-2 (0 = Unprepared colon segment with mucosa not seen due to solid stool that cannot be cleared. 1 = Portion of mucosa of the colon segment seen, but other areas of the colon segment not well seen due to staining, residual stool and/or opaque liquid. 2 = Minor amount of residual staining, small fragments of stool and/or opaque liquid, but mucosa of colon segment seen well. 3 = Entire mucosa of colon segment seen well with no residual staining, small fragments of stool or opaque liquid) Impression and Post Procedure Diagnosis: Endoscopy Findings: hiatal hernia polyp- stomach gastritis Colonoscopy Findings: diverticulosis colon polyps x 5 internal hemorrhoids Plan: Await Pathology results Repeat Colonoscopy in 1-2 years or earlier if clinically indicated High fiber diet leaflet avoid straining at stool, epsom salts and sitz bath, anusol supps or cream if H pylori pos then treat Above findings were reviewed with the patient and relevant handouts were provided if indicated.
[2025-02-23 11:54] VITALS: BP 123/75; PULSE 95; RESP 16; TEMP 36.5; O2SAT 97
[2025-02-23 12:00] VITALS: BP 129/81; PULSE 97; RESP 16; O2SAT 97
== END 2025-02-23 12:39 | disposition home or self-care (01) ==
PROVIDERS: PCP Internal Medicine; Visit Provider Internal Medicine Gastroenterology
PROC: (CPT 45380; principal; 2025-02-23 12:00)
DX: Z12.11 Encounter for screening for malignant neoplasm of colon (principal); E11.9 Type 2 diabetes mellitus without complications; Z86.0101 Personal history of adenomatous and serrated colon polyps; K44.9 Diaphragmatic hernia without obstruction or gangrene; K31.7 Polyp of stomach and duodenum; D50.8 Other iron deficiency anemias; K57.30 Diverticulosis of large intestine without perforation or abscess without bleeding; D12.5 Benign neoplasm of sigmoid colon; D12.3 Benign neoplasm of transverse colon; K63.5 Polyp of colon; K29.70 Gastritis, unspecified, without bleeding
CPT/HCPCS: 45380; 45385; 43239; 43251; 43255; 82947; 88305; 88313; 88342; J2003; J2250; J2704; J3010

== ENCOUNTER → 2025-02-23 08:48 | Outpatient (BNV) | payer MEDICARE, SELFPAY | PROVIDERS: PCP Internal Medicine; Visit Provider Internal Medicine Gastroenterology | DX: D64.9 Anemia, unspecified (principal); K31.7 Polyp of stomach and duodenum; K29.70 Gastritis, unspecified, without bleeding; D12.2 Benign neoplasm of ascending colon; D12.5 Benign neoplasm of sigmoid colon; D12.3 Benign neoplasm of transverse colon; K57.30 Diverticulosis of large intestine without perforation or abscess without bleeding; K64.0 First degree hemorrhoids | CPT/HCPCS: 43251; 45380; 45385 ==

== ENCOUNTER 2025-03-08 14:00 | Outpatient (RCR) | payer MEDICARE, SELFPAY | END 2025-03-22 08:13 | disposition home or self-care (01) | LOC: HO.PTCHIC 14:00 | PROVIDERS: PCP Internal Medicine; Visit Provider Orthopaedic Surgery Foot and Ankle Surgery | DX: S82.852D Displaced trimalleolar fracture of left lower leg, subsequent encounter for closed fracture with routine healing (principal) | CPT/HCPCS: 97110; 97162 ==